=== PATIENT | female | born 1955 | race Caucasian/White ===

== ENCOUNTER 2018-01-29 09:25 | Inpatient (IN) | payer OTHER ==
[~2018-01-29] VITALS: Ht 160 cm; Wt 99.0 kg
[2018-01-29] MEDS ORDERED: EFF75 PO (09:45)
[2018-01-29] MEDS ORDERED: LISI-725 PO (09:45)
[2018-01-29] MEDS ORDERED: AMLO-114 PO (09:45)
[2018-01-29] MEDS ORDERED: ABL/5 PO (09:45)
[2018-01-29] MEDS ORDERED: SIMV5TAB2 PO (09:45)
[2018-01-29] MEDS ORDERED: VNTHFA/IN INH (09:45)
[2018-01-29] MEDS ORDERED: DEXAMETHASONE **PF** INJ 10 MG/ML VIAL IV ONE (10:00)
[2018-01-29] MEDS ORDERED: ALBUT/IPRATROP 3MG/0.5MG NEB 3 ML VIAL INH STA (10:00)
[2018-01-29] MEDS ORDERED: SODIUM CHLORIDE 0.9% 500ML 500 ML IV STA (10:00)
--- NOTE | 2018-01-29 10:14 | EMERGENCY ROOM VISIT NOTE ---
History Report prepared by Angelina: Julius Rankin Under the Supervision of: Dr. Joshua Amin M.D. First contact with patient: 09:48 Chief Complaint: REFERRED BY DOCTOR Stated Complaint: ACID REFLUX History of Present Illness The patient is a 62 year old female who presents to the Emergency Room with complaints of persistent hoarse throat and intermittent "throat closing" episodes where she cannot breath and feels "blocked in her throat" and passes out or nearly passes out for the past 4-5 weeks. The patient states that she has a history of bad GERD, and she has been taking Prilosec for the past 20 years. She states that she saw her PCP this morning that referred her to the ED for evaluation. The patient states that 4 weeks ago she was diagnosed with bronchitis, and then she was put on antibiotics, and she states that her voice has not come back since then. She then was put on prednisone for 5 days, and this has not helped her. The patient states that she has had an endoscopy a year ago and she states that her "throat is a mess": She notes that since she was put on prednisone, she has had more frequent episodes. She has had an EEG, and it was negative. The patient states that during these episodes her head snaps back, she cannot breathe for 10-20 seconds, she becomes incontinent, and she sometimes shakes, though she notes that she has lost consciousness 2-3 times. She notes that her last episode was yesterday morning and the night before. The patient states that she has not had any other medications changes, and she states that she has not had a CT scan or bronchoscopy. The patient states that she has had one child that was not a vaginal delivery, and she states that she smokes a pack of cigarettes per day. The patient denies any shortness of breath, fevers, chills, nausea, vomiting, diarrhea, and coughing up hemoptysis. She reports that she does not think that the episodes are related to stress. Source of History: patient Onset: 4-5 weeks ago Position: throat, other (global) Quality: other (hoarse throat and seizures) Timing: intermittent, other (persistent) Associated Symptoms: + LOC, No fevers, No chills, No nausea, No vomiting, No diarrhea Review of Systems See HPI for pertinent positives and negatives. A total of ten systems were reviewed and were otherwise negative. Past Medical & Surgical Medical Problems: (1) GERD (gastroesophageal reflux disease) (2) Syncope Social History Smoking Status: Current Every Day Smoker Marital Status: Housing Status: lives with family Occupation Status: disabled Current/Historical Medications Scheduled Amlodipine (Norvasc), 10 MG PO DAILY Aripiprazole (Abilify), 5 MG PO DAILY Lisinopril (Zestril), 20 MG PO DAILY Simvastatin (Zocor), 5 MG PO DAILY Venlafaxine Hcl (Effexor), 75 MG PO TID Scheduled PRN Albuterol Hfa (Ventolin Hfa), 2 PUFFS INH Q8H PRN for SOB/Wheezing Allergies Coded Allergies: No Known Allergies (Unverified , 01/29/18) Physical Exam Vital Signs Date Time Temp Pulse Resp B/P (MAP) Pulse Ox O2 Delivery O2 Flow Rate FiO2 01/29/18 15:35 106 22 116/81 94 Nasal Cannula 2.0 01/29/18 15:06 93 Nasal Cannula 2.0 01/29/18 14:50 108 20 124/75 89 Room Air 01/29/18 14:06 103 22 127/79 90 Room Air 01/29/18 12:58 95 20 123/81 100 Nebulizer 01/29/18 12:45 87 16 91 Room Air 01/29/18 12:06 89 Room Air 01/29/18 11:55 98 19 115/82 91 Room Air 01/29/18 11:10 90 16 109/72 98 Room Air 01/29/18 10:29 96 01/29/18 09:27 36.7 104 20 138/79 96 Room Air Physical Exam GENERAL: Awake, alert, well-appearing, in no distress HENT: Normocephalic, atraumatic. Dry mucous membranes otherwise oropharynx unremarkable without edema, injection, tongue elevation or trismus. EYES: Normal conjunctiva. Sclera non-icteric. NECK: Supple. No nuchal rigidity. FROM. No JVD. No LAD. No stridor. RESPIRATORY: Scattered intermittent wheeze otherwise clear. CARDIAC: Regular rate, normal rhythm. Extremities warm and well perfused. Pulses equal. ABDOMEN: Soft, non-distended. No tenderness to palpation. No rebound or guarding. No masses. RECTAL: Deferred. MUSCULOSKELETAL: Chest examination reveals no tenderness. The back is symmetrical on inspection without obvious abnormality. There is no CVA tenderness to palpation. No joint edema. LOWER EXTREMITIES: Calves are equal size bilaterally and non-tender. No edema. No discoloration. NEURO: Normal sensorium. No sensory or motor deficits noted. Normal cerebellar function with [id number], alternating palms, [id number]-[id number] SKIN: No rash or jaundice noted. Medical Decision & Procedures ER Provider Diagnostic Interpretation: Radiology results as stated below per my review and radiologist interpretation: SOFT TISSUE NECK WITH CLINICAL HISTORY: 62 years-old Female presenting with intermittent apnea, ?tracheal occlusion. TECHNIQUE: Multidetector CT of the neck was performed after the administration of intravenous contrast. IV contrast: 94 mL of Optiray 320. A dose lowering technique was used consistent with the principles of ALARA (as low as reasonably achievable). COMPARISON: None. CT DOSE (mGy.cm): The estimated cumulative dose is 1246.25 mGy.cm. FINDINGS: Computer System Specialist topogram: Posterior lumbar fusion hardware noted. Deformity of the neck of the right humerus likely right fracture. Atherosclerosis of the left carotid bifurcation. No gross evidence of significant vessel stenosis. Retropharyngeal common carotid arteries noted. The right vertebral artery is not opacified concerning for occlusion. No suspicious nodular soft tissue along the airway. Valleculae and piriform sinuses symmetric and not effaced. Evaluation of the oral cavity is limited by streak artifact arising from amalgam. Vocal folds are apposed likely due to phonation or the phase of respiration. No evidence of tracheal stenosis. Paranasal sinuses and mastoid air cells clear. Peripharyngeal fat planes are preserved. No cervical lymphadenopathy. Parotid, submandibular, and thyroid glands normal. Orbits normal. Limited intracranial evaluation within normal limits. Degenerative changes of the cervical spine. Lung apices clear. Fluid and gas noted in the cervical esophagus, which is mildly distended. IMPRESSION: 1. Normal CT examination of the airway. No evidence of tracheal stenosis. 2. Mildly distended esophagus. Consider fluoroscopic esophagram if there is concern for esophageal dysmotility or reflux. 3. Findings concerning for right vertebral artery occlusion or congenitally diminutive. Carotid Doppler ultrasound could be considered as clinically appropriate. 4. Deformity of the neck of the right humerus likely posttraumatic. Correlate clinically. The report will be called/faxed according to standard departmental protocol. Electronically signed by: Trino Castaneda M.D. 01/29/2018 11:51 AM Dictated Date/Time: 01/29/2018 11:44 AM CHEST CTA for PULMONARY ARTERIES CT DOSE: HISTORY: Atypical chest pain. TECHNIQUE: Multiaxial CT images of the chest were performed following the intravenous administration of contrast to evaluate the pulmonary arteries. Maximal intensity projection images were also obtained. A dose lowering technique was utilized adhering to the principles of ALARA. COMPARISON STUDY: None. FINDINGS: Normal caliber thoracic aorta with no evidence for dissection. No pleural or pericardial effusions. The heart is normal in size. No filling defects within the pulmonary arteries to suggest pulmonary embolus. Moderate hiatus hernia. The visualized liver, spleen, and adrenal glands are unremarkable. No mediastinal or hilar lymphadenopathy. Fluid-filled nondistended esophagus. Old, healed right humeral neck fracture. No acute fractures identified. No pneumothorax. A 2 mm subpleural nodule within the left lung apex. This is of doubtful clinical significance given its size. A 3 mm groundglass nodule within the left lower lobe on image 121. A 4 mm nodule within the right upper lobe on image 222. 4 mm subpleural nodule at the right minor fissure on image 146. No focal lung consolidations to suggest pneumonia. IMPRESSION: 1. No evidence for pulmonary embolus. 2. Moderate hiatus hernia. There is a fluid-filled nondistended esophagus which could be due to gastroesophageal reflux or dysmotility. 3. A few scattered subcentimeter indeterminate pulmonary nodules with the largest measuring 4 mm as described above. Please refer to the chart below for recommended follow-up. Please refer to below summary of Fleischner criteria recommendations for follow-up of incidental CT nodules (Gonzalez Knapp, Guidelines for management of small pulmonary nodules detected on CT scans: A statement from the Fleischner Society, Radiology 237: [phone].) SOLID NODULES Solitary nodule size: <6 mm * Low risk patients: no follow-up needed * high risk patients: optional CT at 12 months Solitary nodule size: 6-8 mm * Low risk patients: follow-up at 6-12 months, then consider further follow-up at 18-24 months * high risk patients: initial follow-up CT at 6-12 months and then at 18-24 months if no change Solitary nodule size: >8 mm * either low or high risk patients - consider follow-up CT at 3 months, and/or CT-PET, and/or biopsy Multiple nodules size: <6 mm * Low risk patients: no routine follow-up * high risk patients: optional CT at 12 months Multiple nodules size: 6-8 mm * Low risk patients: follow-up at 3-6 months, then consider further follow-up at 18-24 months * high risk patients: follow-up at 3-6 months, then at 18-24 months if no change Multiple nodules size: >8 mm * Low risk patients: follow-up at 3-6 months, then consider further follow-up at 18-24 months * high risk patients: follow-up at 3-6 months, then at 18-24 months if no change Note: newly detected indeterminate nodule in persons 35 years of age or older. * Low risk patients: minimal or absent history of smoking and/or other known risk factors * high risk patients: history of smoking or of other known risk factors (e.g. first degree relative with lung cancer, or exposure to asbestos, radon, uranium) * if a nodule up to 8 mm is partly solid or is ground glass further follow-up is required after 24 months to exclude possible slow growing adenocarcinoma (SADIA) SUBSOLID NODULES Solitary pure ground-glass nodule * nodule size <6 mm - no CT follow-up required * nodule size >=6 mm - follow-up CT at 6-12 months, then every 2 years until 5 years Solitary part-solid nodule * nodule size <6 mm - no CT follow-up required * nodule size >=6 mm - follow-up CT at 3-6 months. If unchanged, and solid component remains <6 mm, then annual follow-up for 5 years Multiple subsolid nodules * nodule size <6 mm - follow-up CT at 3-6 months, consider further follow-up at 2 and 4 years if stable * nodule size >=6 mm - follow-up CT at 3-6 months, subsequent management based on the most suspicious nodule(s) Electronically signed by: Hernandez Jackson M.D. 01/29/2018 12:08 PM Dictated Date/Time: 01/29/2018 11:58 AM SINGLE VIEW CHEST CLINICAL HISTORY: Atypical chest pain. FINDINGS: An AP, portable, upright chest radiograph is obtained. No prior studies are available for comparison at the time of dictation. The examination is degraded by portable technique and patient rotation. The heart is enlarged and there is atherosclerotic calcification of the thoracic aorta. The pulmonary vasculature is noncongested. The lungs and pleural spaces are clear. No pneumothorax is seen. The skeletal structures are osteopenic. The bony thorax is grossly intact. IMPRESSION: Cardiomegaly with no acute cardiopulmonary abnormality. Electronically signed by: Harley Suh M.D. 01/29/2018 10:39 AM Dictated Date/Time: 01/29/2018 10:39 AM CAROTID ARTERY ULTRASOUND CLINICAL HISTORY: Possible vertebral artery occlusion. COMPARISON STUDY: CT of the neck January 29, 2018. TECHNIQUE: Real-time, grayscale, and color Doppler sonography of the carotid and vertebral arteries was performed. Images were viewed in the transverse and longitudinal planes. FINDINGS: There is moderate atherosclerotic plaque. Velocity measurements are listed below. COMMON CAROTID PEAK SYSTOLIC VELOCITY (CM/S): RIGHT 83 LEFT 75 ICA PEAK SYSTOLIC VELOCITY (CM/S): RIGHT 93 LEFT 95 Systolic ratios between the internal to common carotid arteries are normal. Antegrade flow is seen in the vertebral arteries. However, possible right vertebral artery occlusion is not well evaluated on this exam. Blood pressures were not obtained in this patient. IMPRESSION: 1. Antegrade flow identified within portions of the right vertebral artery. However, apparent age indeterminate occlusion of the right vertebral artery shown on prior CT of the neck is not well depicted on this exam. A follow-up CTA of the neck could be obtained for further evaluation. 2. No evidence of a hemodynamically significant stenosis within the bilateral common carotid and internal carotid arteries. Electronically signed by: Yonny Mccullough M.D. 01/29/2018 2:22 PM Dictated Date/Time: 01/29/2018 2:01 PM Laboratory Results 01/29/18 10:25 Red Blood Count 4.29, Mean Corpuscular Volume 66.2, Mean Corpuscular Hemoglobin 19.6, Mean Corpuscular Hemoglobin Concent 29.6, Mean Platelet Volume 8.6, Neutrophils (%) (Auto) 63.1, Lymphocytes (%) (Auto) 28.8, Monocytes (%) (Auto) 5.9, Eosinophils (%) (Auto) 1.5, Basophils (%) (Auto) 0.6, Neutrophils # (Auto) 6.76, Lymphocytes # (Auto) 3.08, Monocytes # (Auto) 0.63, Eosinophils # (Auto) 0.16, Basophils # (Auto) 0.06 01/29/18 10:25 Test 01/29/18 10:25 White Blood Count 10.70 K/uL (4.8-10.8) Red Blood Count 4.29 M/uL (4.2-5.4) Hemoglobin 8.4 g/dL (12.0-16.0) Hematocrit 28.4 % (37-47) Mean Corpuscular Volume 66.2 fL (80-100) Mean Corpuscular Hemoglobin 19.6 pg (25-34) Mean Corpuscular Hemoglobin Concent 29.6 g/dl (32-36) Platelet Count 300 K/uL (130-400) Mean Platelet Volume 8.6 fL (7.4-10.4) Neutrophils (%) (Auto) 63.1 % Lymphocytes (%) (Auto) 28.8 % Monocytes (%) (Auto) 5.9 % Eosinophils (%) (Auto) 1.5 % Basophils (%) (Auto) 0.6 % Neutrophils # (Auto) 6.76 K/uL (1.4-6.5) Lymphocytes # (Auto) 3.08 K/uL (1.2-3.4) Monocytes # (Auto) 0.63 K/uL (0.11-0.59) Eosinophils # (Auto) 0.16 K/uL (0-0.5) Basophils # (Auto) 0.06 K/uL (0-0.2) RDW Standard Deviation 41.9 fL (36.4-46.3) RDW Coefficient of Variation 17.5 % (11.5-14.5) Immature Granulocyte % (Auto) 0.1 % Immature Granulocyte # (Auto) 0.01 K/uL (0.00-0.02) Microcytosis PRESENT Ovalocytes 1+ Anion Gap 8.0 mmol/L (3-11) Est Creatinine Clear Calc Drug Dose 87.1 ml/min Estimated GFR () 97.4 Estimated GFR (Non- 84.1 BUN/Creatinine Ratio 14.0 (10-20) Calcium Level 8.4 mg/dl (8.5-10.1) Magnesium Level 1.8 mg/dl (1.8-2.4) Total Bilirubin 0.4 mg/dl (0.2-1) Direct Bilirubin 0.1 mg/dl (0-0.2) Aspartate Amino Transf (AST/SGOT) 18 U/L (15-37) Alanine Aminotransferase (ALT/SGPT) 24 U/L (12-78) Alkaline Phosphatase 82 U/L (45-117) Troponin I < 0.015 ng/ml (0-0.045) Total Protein 7.6 gm/dl (6.4-8.2) Albumin 3.5 gm/dl (3.4-5.0) Lipase 144 U/L (73-393) Hepatitis C Antibody Screen NEG (NEG) Laboratory results reviewed by me Medications Administered Medications (Trade) Dose Ordered Sig/Bladimir Route Start Time Stop Time Status Last Admin Dose Admin Dexamethasone Sodium Phosphate (Dexamethasone Inj Pf) 10 mg NOW ONCE IV 01/29/18 10:00 01/29/18 10:05 DC 01/29/18 10:49 10 MG Albuterol/ Ipratropium (Duoneb) 3 ml NOW STAT INH 01/29/18 10:00 01/29/18 10:05 DC 01/29/18 10:52 3 ML Sodium Chloride 500 ml @ 999 mls/hr Q31M STAT IV 01/29/18 10:00 01/29/18 10:30 DC 01/29/18 10:49 999 MLS/HR Albuterol/ Ipratropium (Duoneb) 12 ml ONE ONCE INH 01/29/18 12:45 01/29/18 12:46 DC 01/29/18 12:45 12 ML ECG Per My Interpretation Indication: SOB/dyspnea Rate (beats per minute): 87 Rhythm: normal sinus Findings: no acute ischemic change, other (normal axis) ED Course 0948: The patient was evaluated in room B4. A complete history and physical exam was performed. 1234: I reevaluated the patient, and she is feeling fine. Her oxygen was low after getting a nebulizer, she is going to get an hour long nebulizer and an ultrasound. 1445: I reevaluated the patient, and she was doing okay. 1452: I discussed the patient's case with Dr. Shah - Pulmonology, and he thinks that the story is suspicious for reflux and aspiration, and he recommends admission given the 2 episodes of syncope. 1502: Upon reexamination, the patient was doing well. I discussed the test results and treatment plan with her. The patient will be evaluated for further management. 1520: I discussed the patient with Dr. Harden - [facility] [place] Hospitalist - she will evaluate the patient for further treatment. Medical Decision I reviewed the patient's past medical history, medications, and the nursing notes as described above. Differential diagnosis: Etiologies such as infections, reactive airway disease, pneumonia, pneumothorax , COPD, CHF, cardiac ischemia, pulmonary embolism, musculoskeletal, gastrointestinal, as well as others were entertained. The patient is a 62-year-old woman with a past medical history of COPD and reflux who presents to emergency department with worsening frequency and severity of intermittent episodes of sensation of "throat closing" unable to breathe and associated syncope per hpi. Of note the patient has had repeated episodes like this and has had syncope 2-3 times and otherwise has experienced near syncope with these events. Last episode was yesterday which prompted her visit to her PCPs office but was referred to the ED. On arrival the patient is in no acute distress, afebrile stable vital signs. On exam the patient has scattered wheezes and rhonchi in the setting of her chronic smoking history. Patient was given steroids and DuoNeb for possible mild COPD flare. However, subsequently patient was persistently hypoxic on room air to the mid to upper 80s. CT soft tissue neck demonstrates fluid-filled esophagus which raises suspicion that the patient's episodes could be aspiration related; no evidence of tracheal stenosis. CT of the chest negative for PE or acute pulmonary process otherwise. There is comment on the patient's study of occlusion of the vertebral artery which was further clarified in a limited manner on carotid ultrasound which did show flow. Reviewed these findings with the patient she then reported to me that she feels that she has had 3 weeks of double vision, although on exam she has no overt disconjugate gaze or palsy. The patient denies any vertigo or difficulty with coordination. Case was discussed with Dr. Shah, pulmonology on-call, and we agree that the patient's episodes may possibly due to reflux and aspiration. Possibility of a tracheolaryngeal malacia/paralysis is less likely. Patient is on lisinopril however the patient has no exam findings that would be concerning for angioedema. We agreed that reasonable to admit the patient for further evaluation of the patient's syncopal episodes with associated respiratory/obstructive symptoms which also now occur in the setting of possible COPD flare as well as ?vertebral artery occlusion/stenosis of unclear significance. Case was discussed with REGINA Donovan hospitalist, who will evaluate the patient for admission. Medication Reconcilliation Current Medication List: was personally reviewed by me Blood Pressure Screening Patient's blood pressure: Normal blood pressure Consults Time Called: 1431 Consulting Physician: Dr. Shah - Pulmonology Returned Call: [phone] I discussed the patient's case with Dr. Shah - Pulmonology, and he thinks that the story is suspicious for reflux and aspiration, and he recommends admission given the 2 episodes of syncope. Additional Consults: Time Called: 1509 Consulted Physician: Dr. Dereck TAPIA Hospitalist Returned Call: [phone] Additional Comments: I discussed the patient with Dr. Dereck TAPIA Hospitalist - she will evaluate the patient for further treatment. Impression Primary Impression: Syncope Additional Impressions: Hoarseness of voice COPD exacerbation Scribe Attestation The scribe's documentation has been prepared under my direction and personally reviewed by me in its entirety. I confirm that the note above accurately reflects all work, treatment, procedures, and medical decision making performed by me. Departure Information Dispostion Being Evaluated By Hospitalist Patient Instructions My [facility] Problem Qualifiers
[2018-01-29] MEDS ORDERED: OPTIRAY 320 IV PRN (10:15)
--- NOTE | 2018-01-29 10:41 | DIAGNOSTIC IMAGING REPORT ---
SINGLE VIEW CHEST CLINICAL HISTORY: Atypical chest pain. FINDINGS: An AP, portable, upright chest radiograph is obtained. No prior studies are available for comparison at the time of dictation. The examination is degraded by portable technique and patient rotation. The heart is enlarged and there is atherosclerotic calcification of the thoracic aorta. The pulmonary vasculature is noncongested. The lungs and pleural spaces are clear. No pneumothorax is seen. The skeletal structures are osteopenic. The bony thorax is grossly intact. IMPRESSION: Cardiomegaly with no acute cardiopulmonary abnormality. Electronically signed by: Harley Suh M.D. 01/29/2018 10:39 AM Dictated Date/Time: 01/29/2018 10:39 AM
[2018-01-29 11:00] LABS: ALBUMIN 3.5 gm/dl (3.4-5.0); ALKALINE PHOSPHATASE 82 U/L (45-117); ALT/SGPT 24 U/L (12-78); AST/SGOT 18 U/L (15-37); BLOOD UREA NITROGEN 11 mg/dl (7-18); CALCIUM 8.4 mg/dl (8.5-10.1); CARBON DIOXIDE 24 mmol/L (21-32); CREATININE 0.76 mg/dl (0.60-1.20); GLUCOSE 88 mg/dl (70-99); LIPASE 144 U/L (73-393); POTASSIUM 3.8 mmol/L (3.5-5.1); SODIUM 139 mmol/L (136-145); TOTAL PROTEIN 7.6 gm/dl (6.4-8.2)
[2018-01-29 11:17] LABS: BASO % 0.6 %; BASO ABS # 0.06 K/uL (0-0.2); EOS % 1.5 %; EOS ABS # 0.16 K/uL (0-0.5); IG# 0.01 K/uL (0.00-0.02); LYMPH % 28.8 %; LYMPH ABS # 3.08 K/uL (1.2-3.4); MONO % 5.9 %; MONO ABS # 0.63 K/uL (0.11-0.59); NEUT % 63.1 %; NEUT ABS # 6.76 K/uL (1.4-6.5)
--- NOTE | 2018-01-29 11:52 | DIAGNOSTIC IMAGING REPORT ---
SOFT TISSUE NECK WITH CLINICAL HISTORY: 62 years-old Female presenting with intermittent apnea, ?tracheal occlusion. TECHNIQUE: Multidetector CT of the neck was performed after the administration of intravenous contrast. IV contrast: 94 mL of Optiray 320. A dose lowering technique was used consistent with the principles of ALARA (as low as reasonably achievable). COMPARISON: None. CT DOSE (mGy.cm): The estimated cumulative dose is 1246.25 mGy.cm. FINDINGS: Manager Statistics topogram: Posterior lumbar fusion hardware noted. Deformity of the neck of the right humerus likely right fracture. Atherosclerosis of the left carotid bifurcation. No gross evidence of significant vessel stenosis. Retropharyngeal common carotid arteries noted. The right vertebral artery is not opacified concerning for occlusion. No suspicious nodular soft tissue along the airway. Valleculae and piriform sinuses symmetric and not effaced. Evaluation of the oral cavity is limited by streak artifact arising from amalgam. Vocal folds are apposed likely due to phonation or the phase of respiration. No evidence of tracheal stenosis. Paranasal sinuses and mastoid air cells clear. Peripharyngeal fat planes are preserved. No cervical lymphadenopathy. Parotid, submandibular, and thyroid glands normal. Orbits normal. Limited intracranial evaluation within normal limits. Degenerative changes of the cervical spine. Lung apices clear. Fluid and gas noted in the cervical esophagus, which is mildly distended. IMPRESSION: 1. Normal CT examination of the airway. No evidence of tracheal stenosis. 2. Mildly distended esophagus. Consider fluoroscopic esophagram if there is concern for esophageal dysmotility or reflux. 3. Findings concerning for right vertebral artery occlusion or congenitally diminutive. Carotid Doppler ultrasound could be considered as clinically appropriate. 4. Deformity of the neck of the right humerus likely posttraumatic. Correlate clinically. The report will be called/faxed according to standard departmental protocol. Electronically signed by: Trino Castaneda M.D. 01/29/2018 11:51 AM Dictated Date/Time: 01/29/2018 11:44 AM
--- NOTE | 2018-01-29 12:09 | DIAGNOSTIC IMAGING REPORT ---
CHEST CTA for PULMONARY ARTERIES CT DOSE: HISTORY: Atypical chest pain. TECHNIQUE: Multiaxial CT images of the chest were performed following the intravenous administration of contrast to evaluate the pulmonary arteries. Maximal intensity projection images were also obtained. A dose lowering technique was utilized adhering to the principles of ALARA. COMPARISON STUDY: None. FINDINGS: Normal caliber thoracic aorta with no evidence for dissection. No pleural or pericardial effusions. The heart is normal in size. No filling defects within the pulmonary arteries to suggest pulmonary embolus. Moderate hiatus hernia. The visualized liver, spleen, and adrenal glands are unremarkable. No mediastinal or hilar lymphadenopathy. Fluid-filled nondistended esophagus. Old, healed right humeral neck fracture. No acute fractures identified. No pneumothorax. A 2 mm subpleural nodule within the left lung apex. This is of doubtful clinical significance given its size. A 3 mm groundglass nodule within the left lower lobe on image 121. A 4 mm nodule within the right upper lobe on image 222. 4 mm subpleural nodule at the right minor fissure on image 146. No focal lung consolidations to suggest pneumonia. IMPRESSION: 1. No evidence for pulmonary embolus. 2. Moderate hiatus hernia. There is a fluid-filled nondistended esophagus which could be due to gastroesophageal reflux or dysmotility. 3. A few scattered subcentimeter indeterminate pulmonary nodules with the largest measuring 4 mm as described above. Please refer to the chart below for recommended follow-up. Please refer to below summary of Fleischner criteria recommendations for follow-up of incidental CT nodules (Gonzalez Knapp, Guidelines for management of small pulmonary nodules detected on CT scans: A statement from the Fleischner Society, Radiology 237: [id number].) SOLID NODULES Solitary nodule size: <6 mm * Low risk patients: no follow-up needed * high risk patients: optional CT at 12 months Solitary nodule size: 6-8 mm * Low risk patients: follow-up at 6-12 months, then consider further follow-up at 18-24 months * high risk patients: initial follow-up CT at 6-12 months and then at 18-24 months if no change Solitary nodule size: >8 mm * either low or high risk patients - consider follow-up CT at 3 months, and/or CT-PET, and/or biopsy Multiple nodules size: <6 mm * Low risk patients: no routine follow-up * high risk patients: optional CT at 12 months Multiple nodules size: 6-8 mm * Low risk patients: follow-up at 3-6 months, then consider further follow-up at 18-24 months * high risk patients: follow-up at 3-6 months, then at 18-24 months if no change Multiple nodules size: >8 mm * Low risk patients: follow-up at 3-6 months, then consider further follow-up at 18-24 months * high risk patients: follow-up at 3-6 months, then at 18-24 months if no change Note: newly detected indeterminate nodule in persons 35 years of age or older. * Low risk patients: minimal or absent history of smoking and/or other known risk factors * high risk patients: history of smoking or of other known risk factors (e.g. first degree relative with lung cancer, or exposure to asbestos, radon, uranium) * if a nodule up to 8 mm is partly solid or is ground glass further follow-up is required after 24 months to exclude possible slow growing adenocarcinoma (SADIA) SUBSOLID NODULES Solitary pure ground-glass nodule * nodule size <6 mm - no CT follow-up required * nodule size >=6 mm - follow-up CT at 6-12 months, then every 2 years until 5 years Solitary part-solid nodule * nodule size <6 mm - no CT follow-up required * nodule size >=6 mm - follow-up CT at 3-6 months. If unchanged, and solid component remains <6 mm, then annual follow-up for 5 years Multiple subsolid nodules * nodule size <6 mm - follow-up CT at 3-6 months, consider further follow-up at 2 and 4 years if stable * nodule size >=6 mm - follow-up CT at 3-6 months, subsequent management based on the most suspicious nodule(s) Electronically signed by: Hernandez Jackson M.D. 01/29/2018 12:08 PM Dictated Date/Time: 01/29/2018 11:58 AM
[2018-01-29 12:14] LABS: HEMATOCRIT 28.4 % (37-47); HEMOGLOBIN 8.4 g/dL (12.0-16.0); MEAN CELL VOLUME 66.2 fL (80-100); MEAN CORPUSCULAR HEMOGLOBIN 19.6 pg (25-34); MEAN CORPUSCULAR HGB CONC 29.6 g/dl (32-36); MEAN PLATELET VOLUME 8.6 fL (7.4-10.4); PLATELET COUNT 300 K/uL (130-400); RED CELL DISTRIBUTION WIDTH CV 17.5 % (11.5-14.5); RED CELL DISTRIBUTION WIDTH SD 41.9 fL (36.4-46.3)
[2018-01-29 12:45] VITALS: PULSE 87; O2SAT 91
[2018-01-29] MEDS ORDERED: ALBUT/IPRATROP 3MG/0.5MG NEB 3 ML VIAL INH ONE (12:45)
--- NOTE | 2018-01-29 14:23 | DIAGNOSTIC IMAGING REPORT ---
CAROTID ARTERY ULTRASOUND CLINICAL HISTORY: Possible vertebral artery occlusion. COMPARISON STUDY: CT of the neck January 29, 2018. TECHNIQUE: Real-time, grayscale, and color Doppler sonography of the carotid and vertebral arteries was performed. Images were viewed in the transverse and longitudinal planes. FINDINGS: There is moderate atherosclerotic plaque. Velocity measurements are listed below. COMMON CAROTID PEAK SYSTOLIC VELOCITY (CM/S): RIGHT 83 LEFT 75 ICA PEAK SYSTOLIC VELOCITY (CM/S): RIGHT 93 LEFT 95 Systolic ratios between the internal to common carotid arteries are normal. Antegrade flow is seen in the vertebral arteries. However, possible right vertebral artery occlusion is not well evaluated on this exam. Blood pressures were not obtained in this patient. IMPRESSION: 1. Antegrade flow identified within portions of the right vertebral artery. However, apparent age indeterminate occlusion of the right vertebral artery shown on prior CT of the neck is not well depicted on this exam. A follow-up CTA of the neck could be obtained for further evaluation. 2. No evidence of a hemodynamically significant stenosis within the bilateral common carotid and internal carotid arteries. Electronically signed by: Yonny Mccullough M.D. 01/29/2018 2:22 PM Dictated Date/Time: 01/29/2018 2:01 PM
[2018-01-29] MEDS ORDERED: ALBUTEROL HFA 8 GM INHALER INH PRN (16:15)
[2018-01-29] MEDS ORDERED: ACETAMINOPHEN 325 MG TAB PO PRN (16:15)
[2018-01-29] MEDS ORDERED: ONDANSETRON INJ 2 MG/ML 2 ML VIAL IV PRN (16:15)
--- NOTE | 2018-01-29 16:59 | History and Physical ---
History & Physical Date & Time of Service: January 29, 2018 at 16:21 Chief Complaint: Acid Reflux Primary Care Physician: Errol Baldwin M.D. History of Present Illness Source: patient Patient is a 62yo female with history of depression and hypertension presenting with two weeks of frequent "syncopal" episodes. Patient states that the first episode occurred appx 2 weeks ago when she was riding in the car with her . She coughed then lost consciousness for 10-15 seconds. She also reports bladder incontinence at that time. She was seen by her PCP Dr. Baldwin after that event and had an EEG performed for concern for seizures. She was told that the EEG was normal but it didn't completely rule out seizure. Her second episode occurred a few days later when she was sleeping and she had an episode of not being able to breath. She states that her throat felt tight and she couldn't move air in or out. This lasted approximately 10-15 seconds before she was able to take a breath and was associated with urinary incontinence. She reports two additional episodes of her throat feeling closed and unable to move air in or out. Last episode was yesterday afternoon. Additionally patient has had bronchitis and laryngitis for the last 6 weeks. She initially lost her voice entirely 6 weeks ago. She reports having a sore throat and being hoarse for 6 weeks. She was prescribed Prednisone at home. Patient also endorses globus sensation and some recent heartburn. She denies fevers/chills/CP/palpitations/SOB/wheeze/swelling of the tongue or face. Denies itching or rash. Denies abdominal complaints/nausea/vomiting/ diarrhea or constipation. She is unsure if she snores. Patient reportedly had an endoscopy performed 1 year ago and was told that she had GERD. Patient had decreased oxygen saturation in the ER 91% Past Medical/Surgical History Medical Problems: 1. GERD 2. HTN 3. Depression Past Surgical History: Right rotator cuff Back surgery Cervical spine surgery Hysterectomy for fibroids [place] teeth Tonsillectomy Family History Alzheimers and CAD Social History Smoking Status: Current Every Day Smoker Alcohol Use: socially Drug Use: none Marital Status: Housing status: lives with significant other Occupational Status: disabled Allergies Coded Allergies: No Known Allergies (Unverified , 01/29/18) Home Medications Scheduled Amlodipine (Norvasc), 10 MG PO DAILY Aripiprazole (Abilify), 5 MG PO DAILY Lisinopril (Zestril), 20 MG PO DAILY Simvastatin (Zocor), 5 MG PO DAILY Venlafaxine Hcl (Effexor), 75 MG PO TID Scheduled PRN Albuterol Hfa (Ventolin Hfa), 2 PUFFS INH Q8H PRN for SOB/Wheezing Review of Systems Per HPI. A 10 point ROS was otherwise negative. Physical Exam Vital Signs Date Time Temp Pulse Resp B/P (MAP) Pulse Ox O2 Delivery O2 Flow Rate FiO2 01/29/18 15:35 106 22 116/81 94 Nasal Cannula 2.0 01/29/18 15:06 93 Nasal Cannula 2.0 01/29/18 14:50 108 20 124/75 89 Room Air 01/29/18 14:06 103 22 127/79 90 Room Air 01/29/18 12:58 95 20 123/81 100 Nebulizer 01/29/18 12:45 87 16 91 Room Air 01/29/18 12:06 89 Room Air 01/29/18 11:55 98 19 115/82 91 Room Air 01/29/18 11:10 90 16 109/72 98 Room Air 01/29/18 10:29 96 01/29/18 09:27 36.7 104 20 138/79 96 Room Air General: obese female, NAD, resting comfortably Skin: warm, dry, intact, no rashes or lesions HEENT: NC/AT, PERRL, EOMI, anicteric sclera, neck supple, no JVD, no thyromegaly, no JVD, OP clear with no lesions/edema, dentition intact, no swelling of soft tissues or tongue Heart: +S1/S2, regular, tachycardic, no m/r/g Lungs: equal air entry bilaterally, no rales/rhonchi/wheezes, no stridor, no respiratory distress Abdomen: +BS, soft, NT/ND, no masses Extremities: warm, well perfused, no clubbing/cyanosis or edema Neuro: nonfocal Diagnostics Laboratory Results Results Past 24 Hours Test 01/29/18 10:25 Range/Units White Blood Count 10.70 4.8-10.8 K/uL Red Blood Count 4.29 4.2-5.4 M/uL Hemoglobin 8.4 12.0-16.0 g/dL Hematocrit 28.4 37-47 % Mean Corpuscular Volume 66.2 80-100 fL Mean Corpuscular Hemoglobin 19.6 25-34 pg Mean Corpuscular Hemoglobin Concent 29.6 32-36 g/dl Platelet Count 300 130-400 K/uL Mean Platelet Volume 8.6 7.4-10.4 fL Neutrophils (%) (Auto) 63.1 % Lymphocytes (%) (Auto) 28.8 % Monocytes (%) (Auto) 5.9 % Eosinophils (%) (Auto) 1.5 % Basophils (%) (Auto) 0.6 % Neutrophils # (Auto) 6.76 1.4-6.5 K/uL Lymphocytes # (Auto) 3.08 1.2-3.4 K/uL Monocytes # (Auto) 0.63 0.11-0.59 K/uL Eosinophils # (Auto) 0.16 0-0.5 K/uL Basophils # (Auto) 0.06 0-0.2 K/uL RDW Standard Deviation 41.9 36.4-46.3 fL RDW Coefficient of Variation 17.5 11.5-14.5 % Immature Granulocyte % (Auto) 0.1 % Immature Granulocyte # (Auto) 0.01 0.00-0.02 K/uL Microcytosis PRESENT Ovalocytes 1+ Sodium Level 139 136-145 mmol/L Potassium Level 3.8 3.5-5.1 mmol/L Chloride Level 107 98-107 mmol/L Carbon Dioxide Level 24 21-32 mmol/L Anion Gap 8.0 3-11 mmol/L Blood Urea Nitrogen 11 7-18 mg/dl Creatinine 0.76 0.60-1.20 mg/dl Est Creatinine Clear Calc Drug Dose 87.1 ml/min Estimated GFR () 97.4 Estimated GFR (Non- 84.1 BUN/Creatinine Ratio 14.0 10-20 Random Glucose 88 70-99 mg/dl Calcium Level 8.4 8.5-10.1 mg/dl Magnesium Level 1.8 1.8-2.4 mg/dl Total Bilirubin 0.4 0.2-1 mg/dl Direct Bilirubin 0.1 0-0.2 mg/dl Aspartate Amino Transf (AST/SGOT) 18 15-37 U/L Alanine Aminotransferase (ALT/SGPT) 24 12-78 U/L Alkaline Phosphatase 82 45-117 U/L Troponin I < 0.015 0-0.045 ng/ml Total Protein 7.6 6.4-8.2 gm/dl Albumin 3.5 3.4-5.0 gm/dl Lipase 144 73-393 U/L Diagnostic Radiology CAROTID ARTERY ULTRASOUND CLINICAL HISTORY: Possible vertebral artery occlusion. COMPARISON STUDY: CT of the neck January 29, 2018. TECHNIQUE: Real-time, grayscale, and color Doppler sonography of the carotid and vertebral arteries was performed. Images were viewed in the transverse and longitudinal planes. FINDINGS: There is moderate atherosclerotic plaque. Velocity measurements are listed below. COMMON CAROTID PEAK SYSTOLIC VELOCITY (CM/S): RIGHT 83 LEFT 75 ICA PEAK SYSTOLIC VELOCITY (CM/S): RIGHT 93 LEFT 95 Systolic ratios between the internal to common carotid arteries are normal. Antegrade flow is seen in the vertebral arteries. However, possible right vertebral artery occlusion is not well evaluated on this exam. Blood pressures were not obtained in this patient. IMPRESSION: 1. Antegrade flow identified within portions of the right vertebral artery. However, apparent age indeterminate occlusion of the right vertebral artery shown on prior CT of the neck is not well depicted on this exam. A follow-up CTA of the neck could be obtained for further evaluation. 2. No evidence of a hemodynamically significant stenosis within the bilateral common carotid and internal carotid arteries. SINGLE VIEW CHEST CLINICAL HISTORY: Atypical chest pain. FINDINGS: An AP, portable, upright chest radiograph is obtained. No prior studies are available for comparison at the time of dictation. The examination is degraded by portable technique and patient rotation. The heart is enlarged and there is atherosclerotic calcification of the thoracic aorta. The pulmonary vasculature is noncongested. The lungs and pleural spaces are clear. No pneumothorax is seen. The skeletal structures are osteopenic. The bony thorax is grossly intact. IMPRESSION: Cardiomegaly with no acute cardiopulmonary abnormality. Electronically signed by: Harley Suh M.D. 01/29/2018 10:39 AM CHEST CTA for PULMONARY ARTERIES CT DOSE: HISTORY: Atypical chest pain. TECHNIQUE: Multiaxial CT images of the chest were performed following the intravenous administration of contrast to evaluate the pulmonary arteries. Maximal intensity projection images were also obtained. A dose lowering technique was utilized adhering to the principles of ALARA. COMPARISON STUDY: None. FINDINGS: Normal caliber thoracic aorta with no evidence for dissection. No pleural or pericardial effusions. The heart is normal in size. No filling defects within the pulmonary arteries to suggest pulmonary embolus. Moderate hiatus hernia. The visualized liver, spleen, and adrenal glands are unremarkable. No mediastinal or hilar lymphadenopathy. Fluid-filled nondistended esophagus. Old, healed right humeral neck fracture. No acute fractures identified. No pneumothorax. A 2 mm subpleural nodule within the left lung apex. This is of doubtful clinical significance given its size. A 3 mm groundglass nodule within the left lower lobe on image 121. A 4 mm nodule within the right upper lobe on image 222. 4 mm subpleural nodule at the right minor fissure on image 146. No focal lung consolidations to suggest pneumonia. IMPRESSION: 1. No evidence for pulmonary embolus. 2. Moderate hiatus hernia. There is a fluid-filled nondistended esophagus which could be due to gastroesophageal reflux or dysmotility. 3. A few scattered subcentimeter indeterminate pulmonary nodules with the largest measuring 4 mm as described above. Please refer to the chart below for recommended follow-up. Please refer to below summary of Fleischner criteria recommendations for follow-up of incidental CT nodules (H MacMahon, Guidelines for management of small pulmonary nodules detected on CT scans: A statement from the Fleischner Society, Radiology 237: [id number].) SOFT TISSUE NECK WITH CLINICAL HISTORY: 62 years-old Female presenting with intermittent apnea, ?tracheal occlusion. TECHNIQUE: Multidetector CT of the neck was performed after the administration of intravenous contrast. IV contrast: 94 mL of Optiray 320. A dose lowering technique was used consistent with the principles of ALARA (as low as reasonably achievable). COMPARISON: None. CT DOSE (mGy.cm): The estimated cumulative dose is 1246.25 mGy.cm. FINDINGS: Manager Of Compensation topogram: Posterior lumbar fusion hardware noted. Deformity of the neck of the right humerus likely right fracture. Atherosclerosis of the left carotid bifurcation. No gross evidence of significant vessel stenosis. Retropharyngeal common carotid arteries noted. The right vertebral artery is not opacified concerning for occlusion. No suspicious nodular soft tissue along the airway. Valleculae and piriform sinuses symmetric and not effaced. Evaluation of the oral cavity is limited by streak artifact arising from amalgam. Vocal folds are apposed likely due to phonation or the phase of respiration. No evidence of tracheal stenosis. Paranasal sinuses and mastoid air cells clear. Peripharyngeal fat planes are preserved. No cervical lymphadenopathy. Parotid, submandibular, and thyroid glands normal. Orbits normal. Limited intracranial evaluation within normal limits. Degenerative changes of the cervical spine. Lung apices clear. Fluid and gas noted in the cervical esophagus, which is mildly distended. IMPRESSION: 1. Normal CT examination of the airway. No evidence of tracheal stenosis. 2. Mildly distended esophagus. Consider fluoroscopic esophagram if there is concern for esophageal dysmotility or reflux. 3. Findings concerning for right vertebral artery occlusion or congenitally diminutive. Carotid Doppler ultrasound could be considered as clinically appropriate. 4. Deformity of the neck of the right humerus likely posttraumatic. Correlate clinically. The report will be called/faxed according to standard departmental protocol. Impression Assessment and Plan 62yo female presenting with episodic apneic episodes characterized by inability to move air in or out, feeling of throat closure. Patient denies other allergic symptoms, no evidence of infection, imaging performed in the ER with normal tracheal anatomy and no soft tissue swelling. Patient does report a prolonged 6 week history of laryngitis with hoarseness. 1. ?Apneic episodes - patient with no respiratory distress at present, adequate oxygenation on 2L nasal cannula. Suspect symptoms are secondary to underlying GERD versus vocal cord dysfunction or edema given patient's prolonged complaint of hoarseness. -Monitor on telemetry with continuous pulse oximetry -Consult ENT re: need to visualize upper airway and vocal cords - may be more appropriately done in the outpatient setting -Protonix 40mg PO daily 2. Anemia - Hg=8.4, Hct=28.4, MCV=66.2, MCH=19.6. No history of prior H/H in our records. Patient denies bleeding. -Will send FOBT and Iron studies. Reticulocyte count. -Daily CBC, transfuse if less than 7 3. GERD - patient endorses globus sensation, fullness in throat. -Protonix 40mg PO daily. 4. Hypertension - patient is normotensive. Continue outpatient medications. No airway swelling at present. No history of angioedema -Norvasc 10mg po daily -Lisinopril 20mg po daily 5. Depression - Stable -Continue Effexor 75mg po daily -Continue Abilify 6. HLP - Stable -Continue Simvastatin 7. F/E/N - Heplock. Monitor electrolytes and replete as needed. AHA diet as tolerated 8. Code - Full per discussion with patient 9. Dispo - Telemetry, admit Resuscitation Status FULL VTE Prophylaxis Will order VTE Prophylaxis: Yes
[2018-01-29 17:30] VITALS: BP 130/82; PULSE 108; TEMP 36.7; O2SAT 96
[2018-01-29 17:32] LABS: RETIC COUNT % 1.4 % (0.5-2.0)
[2018-01-29] MEDS ORDERED: PANTOprazole INJ 40 MG in SYRINGE 0 ML IV ONE (17:46)
[2018-01-29 18:10] LABS: PTT PATIENT 23.6 SECONDS (21.0-31.0)
[2018-01-29 18:18] VITALS: O2SAT 93; Ht 160 cm; Wt 99.0 kg
[2018-01-29] MEDS: NICOTINE 21 MG/24 HR TDSY TD SCH (19:29)
[2018-01-29 19:59] VITALS: BP 126/78; PULSE 108; TEMP 36.9; O2SAT 94
[2018-01-29] MEDS: VENLAFAXINE HCL 50 MG TAB PO SCH (20:42)
[2018-01-29] MEDS: ENOXAPARIN 40 MG/0.4 ML SYR SC SCH (20:43)
[2018-01-29 20:54] VITALS: O2SAT 93
[2018-01-29] MEDS ORDERED: IV FLUIDS COMPLETED PRN (21:00)
[2018-01-29 23:33] VITALS: BP 110/72; PULSE 99; TEMP 36.9; O2SAT 91
[2018-01-30] VITALS (9 sets, daily range): BP systolic 111–130; BP diastolic 73–86; PULSE 93–110; TEMP 36.7–37.1; O2SAT 92–98
[2018-01-30 05:47] LABS: HEMATOCRIT 29.3 % (37-47); HEMOGLOBIN 8.5 g/dL (12.0-16.0); MEAN CELL VOLUME 66.4 fL (80-100); MEAN CORPUSCULAR HEMOGLOBIN 19.3 pg (25-34); MEAN PLATELET VOLUME 8.6 fL (7.4-10.4); PLATELET COUNT 297 K/uL (130-400); RED CELL DISTRIBUTION WIDTH CV 17.4 % (11.5-14.5); RED CELL DISTRIBUTION WIDTH SD 41.8 fL (36.4-46.3); WHITE BLOOD COUNT 11.77 K/uL (4.8-10.8)
[2018-01-30 06:09] LABS: CALCIUM 8.8 mg/dl (8.5-10.1); CREATININE 0.71 mg/dl (0.60-1.20); POTASSIUM 4.2 mmol/L (3.5-5.1)
[2018-01-30 06:14] LABS: BASO % 0.1 %; BASO ABS # 0.01 K/uL (0-0.2); IG# 0.03 K/uL (0.00-0.02); LYMPH % 18.3 %; LYMPH ABS # 2.15 K/uL (1.2-3.4); MONO % 7.2 %; MONO ABS # 0.85 K/uL (0.11-0.59); NEUT % 74.1 %; NEUT ABS # 8.73 K/uL (1.4-6.5)
[2018-01-30] MEDS: VENLAFAXINE HCL 50 MG TAB PO SCH ×3 (08:21→20:36)
[2018-01-30] MEDS: AMLODIPINE BESYLATE 5 MG TAB PO SCH (08:21)
[2018-01-30] MEDS: SIMVASTATIN 5 MG TAB PO SCH (08:21)
[2018-01-30] MEDS: ARIPIprazole TAB 5 MG TAB PO SCH (08:21)
[2018-01-30] MEDS: LISINOPRIL 20 MG TAB PO SCH (08:22)
[2018-01-30] MEDS ORDERED: PANTOprazole INJ 40 MG in SYRINGE 0 ML IV SCH (11:00)
[2018-01-30] MEDS ORDERED: COUGH DROP (SUGAR FREE) LOZ 24 LOZ/1 BOX LOZ PRN (11:45)
[2018-01-30] MEDS ORDERED: ALUMINUM/MAGNESIUM/SIMETH (MAALOX MAX) 30 ML UDC PO PRN (13:00)
--- NOTE | 2018-01-30 13:17 | Gastrointestinal Consultation ---
Gastrointestinal Consultation Date of Consultation: January 30, 2018 Attending Physician: Dr Davi Carbone Consulting Physician: Dr Miguel Angel Garcias Reason for Consultation: GERD, Fe def History of Present Illness CC GERD HPI Pt admitted with near syncope and syncope episodes usually starting with coughing episodes. Pt has chronic GERD and can get regurgiatation of stomach contents not necessarily associated with the coughing. Pt states in [place] where she and her with her lived diagnosed with Fe def anemia a year ago and underwent EGD and colonoscopy there. She states colon polyp removed and "throat was a mess". She states normally on prilosec 20 mg daily but 6 months ago upped that to 40 mg daily and one week ago 80 mg daily GERD symptoms are chest burning. No bloody nor black stools. Some food dysphagia No significant change in her weight. Soft tissue neck CT no over esophageal problems. CTA chest fluid filled esophaguas, moderate HH. NO abd pain symptoms. Does smoke 1 ppd. No old Hgb to compare. Hgb on admit 8.4 with Fe sat and ferritin low and B12/folate normal. Past Medical/Surgical History Medical Problems: (1) COPD exacerbation Status: Acute (2) Hoarseness of voice Status: Acute Family History alzheimers Social History Smoking Status: Current Every Day Smoker Drug Use: none Marital Status: Housing Status: lives with family Occupation Status: disabled Allergies Coded Allergies: No Known Allergies (Unverified , 01/29/18) Current Medications Home Meds and Scripts Medications Dose Route/Sig Max Daily Dose Days Date Category Ventolin Hfa (Albuterol) 200 Puffs/64775 Mcg Aers 2 Puffs INH Q8H PRN 01/29/18 Reported Abilify (Aripiprazole) 5 Mg Tab 5 Mg PO DAILY 01/29/18 Reported Effexor (Venlafaxine Hcl) 75 Mg Tab 75 Mg PO TID 01/29/18 Reported Norvasc (Amlodipine Besylate) 10 Mg Tab 10 Mg PO DAILY 01/29/18 Reported Zestril (Lisinopril) 20 Mg Tab 20 Mg PO DAILY 01/29/18 Reported Zocor (Simvastatin) 5 Mg Tab 5 Mg PO DAILY 01/29/18 Reported Review of Systems see HPI, otherwise 10 ROS negative Physical Exam Date Time Temp Pulse Resp B/P (MAP) Pulse Ox O2 Delivery O2 Flow Rate FiO2 5/22/18 11:27 36.9 93 18 121/77 (92) 96 01/30/18 08:00 94 Nasal Cannula 2.0 01/30/18 07:27 37.1 96 20 130/86 (101) 94 Nasal Cannula 2.0 01/30/18 04:18 37.1 100 18 111/73 (86) 95 Nasal Cannula 2.0 01/30/18 04:00 Nasal Cannula 2.0 01/30/18 00:00 Nasal Cannula 2.0 01/29/18 23:33 36.9 99 18 110/72 (85) 91 Nasal Cannula 2.0 01/29/18 20:54 93 Nasal Cannula 2.0 01/29/18 19:59 36.9 108 18 126/78 (94) 94 Nasal Cannula 2.0 01/29/18 18:18 93 Nasal Cannula 2.0 01/29/18 17:30 36.7 108 16 130/82 (98) 96 Nasal Cannula 2.0 01/29/18 17:13 109 20 140/84 93 Nasal Cannula 2.0 01/29/18 15:35 106 22 116/81 94 Nasal Cannula 2.0 01/29/18 15:06 93 Nasal Cannula 2.0 01/29/18 14:50 108 20 124/75 89 Room Air 01/29/18 14:06 103 22 127/79 90 Room Air General Appearance: WD/WN, no apparent distress Eyes: normal inspection, PERRL ENT: hearing grossly normal, pharynx normal Neck: supple, trachea midline Respiratory/Chest: lungs clear, no respiratory distress Cardiovascular: regular rate, rhythm, no edema Abdomen: normal bowel sounds, non tender, soft, no organomegaly, no pulsatile mass Extremities: normal inspection Neurologic/Psych: claim clinician II-XII nml as tested, alert, normal mood/affect, oriented x 3 Skin: normal color, no jaundice Laboratory Results Last 24 Hours Test 01/29/18 17:07 01/29/18 17:48 01/30/18 00:20 01/30/18 05:23 Absolute Reticulocyte Count 0.06 10^6/uL Percent Reticulocyte Count 1.4 % Iron Level 13 mcg/dl Total Iron Binding Capacity 527 mcg/dl Ferritin 2.4 ng/ml Prothrombin Time 10.0 SECONDS Prothromb Time International Ratio 1.0 Activated Partial Thromboplast Time 23.6 SECONDS Partial Thromboplastin Ratio 0.9 Urine Color YELLOW Urine Appearance CLEAR Urine pH 6.0 Urine Specific [place] 1.021 Urine Protein NEG Urine Glucose (UA) NEG Urine Ketones NEG Urine Occult Blood NEG Urine Nitrite NEG Urine Bilirubin NEG Urine Urobilinogen NEG Urine Leukocyte Esterase NEG White Blood Count 11.77 K/uL Red Blood Count 4.41 M/uL Hemoglobin 8.5 g/dL Hematocrit 29.3 % Mean Corpuscular Volume 66.4 fL Mean Corpuscular Hemoglobin 19.3 pg Mean Corpuscular Hemoglobin Concent 29.0 g/dl Platelet Count 297 K/uL Mean Platelet Volume 8.6 fL Neutrophils (%) (Auto) 74.1 % Lymphocytes (%) (Auto) 18.3 % Monocytes (%) (Auto) 7.2 % Eosinophils (%) (Auto) 0.0 % Basophils (%) (Auto) 0.1 % Neutrophils # (Auto) 8.73 K/uL Lymphocytes # (Auto) 2.15 K/uL Monocytes # (Auto) 0.85 K/uL Eosinophils # (Auto) 0.00 K/uL Basophils # (Auto) 0.01 K/uL RDW Standard Deviation 41.8 fL RDW Coefficient of Variation 17.4 % Immature Granulocyte % (Auto) 0.3 % Immature Granulocyte # (Auto) 0.03 K/uL Microcytosis PRESENT Ovalocytes 1+ Sodium Level 141 mmol/L Potassium Level 4.2 mmol/L Chloride Level 108 mmol/L Carbon Dioxide Level 25 mmol/L Anion Gap 8.0 mmol/L Blood Urea Nitrogen 12 mg/dl Creatinine 0.71 mg/dl Est Creatinine Clear Calc Drug Dose 93.3 ml/min Estimated GFR () 105.8 Estimated GFR (Non- 91.3 BUN/Creatinine Ratio 17.2 Random Glucose 107 mg/dl Calcium Level 8.8 mg/dl Test 01/30/18 09:19 Vitamin B12 Level 356 pg/mL Folate 15.35 ng/mL Impression gerd--Rx with protonix 40 mg po bid and carafate suspension qid. Get copy of previous EGD and recommend elective EGD as outpt hopefullly once sycopal spells sorted out Fe def anemia--had EGD/colo one year ago. Recommend ferrous sulfate or equivalent daily. Get reports of scopes regurgitation--from acid reflux dysphagia--elective EGD as above.
[2018-01-30] MEDS ORDERED: LEVALBUTEROL/IPRATROPIUM NEB INH PRN (14:30)
[2018-01-30] MEDS ORDERED: LEVALBUTEROL 0.63MG/3 ML NEB INH PRN (15:00)
[2018-01-30] MEDS ORDERED: LEVALBUTEROL/IPRATROPIUM NEB INH SCH (15:00)
[2018-01-30] MEDS ORDERED: IPRATROPIUM BROMIDE NEB SOLN 0.02% 2.5 ML VIAL INH PRN (15:00)
--- NOTE | 2018-01-30 15:17 | Progress Note ---
Medicine Progress Note Date & Time of Visit: January 30, 2018 at 14:41. (Minna Amado .ADAMARISC) Subjective Pt seen and examined in Rm 284-2. Pt resting in bed. Pt has noted audible wheezing. She reports feels SOB and wheezing. Typically uses albuterol inhaler at least twice daily for past 6 months. Previously was on Spiriva, not on for past 6 months. Reports PFT's approx 2 years ago when lived in [place] and was diagnosed with COPD. Hx bronchitis one month ago and treated with prednisone, pt reports some residual hoarseness since. Hx sensation "flap closing in throat and unable to inhale or exhale for approx 10 seconds" and pt states then feels anxious and has urinary incontinence. This has occurred 4 times in past week. States one time had syncope with this that lasted a couple of seconds. Sometimes occurs with sitting or walking. She denies feeling SOB or associated SOB or wheezing when this occurs and denies anxiety prior to these episodes. Seen at PCP and had EEG on 01/11/18 - normal. No further syncopal episodes while in hospital. Reports hx urinary incontinence for years. Hx GERD, hiatal hernia. Was taking omeprazole. Pt reports frequent reflux symptoms. Normal appetite. (Minna Amado ., ADAMARISC) Objective Last 8 Hrs Date Time Temp Pulse Resp B/P (MAP) Pulse Ox O2 Delivery O2 Flow Rate FiO2 01/30/18 12:00 Nasal Cannula 2.0 01/30/18 11:27 36.9 93 18 121/77 (92) 96 01/30/18 08:00 94 Nasal Cannula 2.0 01/30/18 07:27 37.1 96 20 130/86 (101) 94 Nasal Cannula 2.0 Physical Exam: General:Well developed, well nourished, +mild respiratory distress - noted audible wheezing Head: normocephalic, atraumatic Eyes: PERRL, EOM's intact ENT: mucous membranes moist Neck: supple, non-tender, no masses noted Lungs:+ scattered wheezing throughout, no rales or rhonchi, respirations: 24. no accessory muscle use. CV: RRR, no JVD, no pretibial edema Abdomen: normal BS, soft, non-tender Extremities: no cyanosis, no calf tenderness Neuro: alert & oriented x 3 Skin: warm & dry Laboratory Results: Last 24 Hours Test 01/29/18 17:07 01/29/18 17:48 01/30/18 00:20 01/30/18 05:23 Absolute Reticulocyte Count 0.06 10^6/uL Percent Reticulocyte Count 1.4 % Iron Level 13 mcg/dl Total Iron Binding Capacity 527 mcg/dl Ferritin 2.4 ng/ml Prothrombin Time 10.0 SECONDS Prothromb Time International Ratio 1.0 Activated Partial Thromboplast Time 23.6 SECONDS Partial Thromboplastin Ratio 0.9 Urine Color YELLOW Urine Appearance CLEAR Urine pH 6.0 Urine Specific [place] 1.021 Urine Protein NEG Urine Glucose (UA) NEG Urine Ketones NEG Urine Occult Blood NEG Urine Nitrite NEG Urine Bilirubin NEG Urine Urobilinogen NEG Urine Leukocyte Esterase NEG White Blood Count 11.77 K/uL Red Blood Count 4.41 M/uL Hemoglobin 8.5 g/dL Hematocrit 29.3 % Mean Corpuscular Volume 66.4 fL Mean Corpuscular Hemoglobin 19.3 pg Mean Corpuscular Hemoglobin Concent 29.0 g/dl Platelet Count 297 K/uL Mean Platelet Volume 8.6 fL Neutrophils (%) (Auto) 74.1 % Lymphocytes (%) (Auto) 18.3 % Monocytes (%) (Auto) 7.2 % Eosinophils (%) (Auto) 0.0 % Basophils (%) (Auto) 0.1 % Neutrophils # (Auto) 8.73 K/uL Lymphocytes # (Auto) 2.15 K/uL Monocytes # (Auto) 0.85 K/uL Eosinophils # (Auto) 0.00 K/uL Basophils # (Auto) 0.01 K/uL RDW Standard Deviation 41.8 fL RDW Coefficient of Variation 17.4 % Immature Granulocyte % (Auto) 0.3 % Immature Granulocyte # (Auto) 0.03 K/uL Microcytosis PRESENT Ovalocytes 1+ Sodium Level 141 mmol/L Potassium Level 4.2 mmol/L Chloride Level 108 mmol/L Carbon Dioxide Level 25 mmol/L Anion Gap 8.0 mmol/L Blood Urea Nitrogen 12 mg/dl Creatinine 0.71 mg/dl Est Creatinine Clear Calc Drug Dose 93.3 ml/min Estimated GFR () 105.8 Estimated GFR (Non- 91.3 BUN/Creatinine Ratio 17.2 Random Glucose 107 mg/dl Calcium Level 8.8 mg/dl Test 5/22/18 09:19 Vitamin B12 Level 356 pg/mL Folate 15.35 ng/mL (Minna Amado ., JEISON) Assessment & Plan SYNCOPE ?vasovagal syncope Pt with reported syncope couple seconds with associated globus like sensation. Had normal out-patient EEG on 01/11/18. -orthostatics -CT head -continue to monitor COPD EXACERBATION/HYPOXIA Pt not on home O2. Noted sats dropped to 89% on RA in ER. Pt been on 2L NC with sats 94-96%. Had negative PE study. Hasn't been getting her albuterol inhaler past 24 hours. Pt now with wheezing on exam today. -nebs -prednisone 40mg daily po -supplemental oxygen per protocol -consider 2 step prior to discharge -consider pulmonology consult, PFT's out patient GLOBUS SENSATION/HOARSENESS ?esophageal/GERD related vs anxiety vs breathing issues with COPD -ENT consulted - appreciate input GERD Seen by GI - started carafate and protonix 40mg BID -recommended EGD out-pt IRON DEFICIENCY ANEMIA Pt reports hx iron deficiency in past Hgb: 8.5. Ferritin: 2.4, Iron: 13, TIBC: 527, normal B12 & folate -ferrous sulfate 325mg po daily LUNG NODULES CT CHEST: A few scattered subcentimeter indeterminate pulmonary nodules with the largest measuring 4 mm as described above. -out-pt follow up recommended HTN -continue lisinopril, norvasc HLD -continue statin BIPOLAR DEPRESSION -continue Effexor, Abilify TOBACCO ABUSE 1ppd x 45 years. -smoking cessation discussed and pt reports does not plan on resuming smoking Follows with Dr Baldwin for routine care Plan for discharge back home Pt was seen with Dr Blum. See addendum Current Inpatient Medications: Current Inpatient Medications Medications (Trade) Dose Ordered Sig/Bladimir Route Start Time Stop Time Status Last Admin Dose Admin Ioversol (Optiray 320) 125 ml UD PRN IV 01/29/18 10:15 02/02/18 10:14 Enoxaparin Sodium (Lovenox Inj) 40 mg Q24H SC 01/29/18 21:00 02/28/18 20:59 01/29/18 20:43 40 MG Acetaminophen (Tylenol Tab) 650 mg Q4H PRN PO 01/29/18 16:15 6/20/18 16:14 Ondansetron HCl (Zofran Inj) 4 mg Q6H PRN IV 01/29/18 16:15 02/28/18 16:14 Albuterol (Ventolin Hfa Inhaler) 2 puffs Q8H PRN INH 01/29/18 16:15 02/28/18 16:14 Amlodipine Besylate (Norvasc Tab) 10 mg DAILY PO 01/30/18 09:00 03/01/18 08:59 01/30/18 08:21 10 MG Aripiprazole (Abilify Tab) 5 mg DAILY PO 01/30/18 09:00 03/01/18 08:59 01/30/18 08:21 5 MG Lisinopril (Zestril Tab) 20 mg DAILY PO 01/30/18 09:00 03/01/18 08:59 01/30/18 08:22 20 MG Simvastatin (Zocor Tab) 5 mg DAILY PO 01/30/18 09:00 03/01/18 08:59 01/30/18 08:21 5 MG Venlafaxine HCl (effeXOR TAB) 75 mg TID PO 01/29/18 21:00 02/28/18 20:59 01/30/18 13:38 75 MG Nicotine (Nicoderm Cq 21MG Patch) 1 patch QAM TD 01/30/18 09:00 03/01/18 08:59 01/29/18 19:29 1 PATCH Miscellaneous (Remove Nicoderm Patch) 1 ea HS N/A 01/29/18 21:00 02/28/18 20:59 Miscellaneous (Iv Fluids Completed) 1 ea PRN PRN N/A 01/29/18 21:00 01/29/19 20:59 Menthol (Nice Vicki) 1 vicki PRN PRN VICKI 01/30/18 11:45 03/01/18 11:44 01/30/18 12:03 24 VICKI Al Hydrox/Mg Hydrox/Simethicone (Maalox Max Susp) 30 ml Q6H PRN PO 01/30/18 13:00 03/01/18 12:59 Pantoprazole Sodium (Protonix Tab) 40 mg BIDM PO 01/30/18 17:00 03/01/18 16:59 Sucralfate (Carafate Susp) 1 gm QID PO 01/30/18 17:00 03/01/18 16:59 Ferrous Sulfate (Feosol Tab) 325 mg QAM PO 01/31/18 09:00 03/02/18 08:59 Miscellaneous (Xopenex/ Atrovent Neb) 1 ea Q6R INH 01/30/18 15:00 03/01/18 14:59 UNV Miscellaneous (Xopenex/ Atrovent Neb) 1 ea Q4R PRN INH 01/30/18 14:30 03/01/18 14:29 UNV (Minna Amado .JEISON) Attending Addendum Pt was seen and examined. Agreed with Minna MCHUGH exam, assessment and plan. Continue monitor for any syncope. (Jc Blum M.D.)
[2018-01-30] MEDS: LEVALBUTEROL 1.25MG/0.5ML NEB INH SCH ×2 (15:24→19:29)
[2018-01-30] MEDS: IPRATROPIUM BROMIDE NEB SOLN 0.02% 2.5 ML VIAL INH SCH ×2 (15:24→19:28)
--- NOTE | 2018-01-30 15:57 | Progress Note ---
Progress Note Date of Service January 30, 2018. Progress Note We found out patient's PCP is been belong to [facility] medical service, therefore we had a good sign out to hospitalist service of [facility] hospitalist team in his hospital,
--- NOTE | 2018-01-30 16:10 | DIAGNOSTIC IMAGING REPORT ---
HEAD WITHOUT CONTRAST (CT) CLINICAL HISTORY: 62 years-old Female with syncope. Acute syncopal event TECHNIQUE: Multiple axial CT images of the head were obtained without contrast. A dose lowering technique was utilized adhering to the principles of ALARA. CT DOSE: 638.56 mGycm COMPARISON: Carotid Doppler 01/29/2018 FINDINGS: No acute intracranial hemorrhage, midline shift, intracranial mass, hydrocephalus, territorial ischemia or abnormal extra-axial collection. The calvarium is intact. The paranasal sinuses, mastoid air cells, and middle ear cavities are clear. IMPRESSION: No acute intracranial abnormality. The above report was generated using voice recognition software. It may contain grammatical, syntax or spelling errors. Electronically signed by: Yamil Aldrich M.D. 01/30/2018 4:09 PM Dictated Date/Time: 01/30/2018 4:06 PM
[2018-01-30] MEDS: PANTOprazole SOD 40 MG TAB PO SCH (16:59)
[2018-01-30] MEDS: SUCRALFATE 1 GM/10 ML UDC PO SCH ×2 (16:59→20:36)
--- NOTE | 2018-01-30 17:51 | ENT CONSULTATION ---
DATE OF ADMISSION: 01/29/2018 DIAGNOSIS: Vocal cord nodules with leukoplakia. HISTORY: This 62-year-old female was admitted for two-week history of syncopal episodes. The first time was two weeks ago when she coughed and lost consciousness for 10-15 seconds. She had two additional episodes where her throat felt closing, was unable to breathe and was admitted for further evaluation. She does have a history of acute loss of voice due to laryngitis six weeks ago, described as sore throat and hoarseness associated with esophageal reflux symptoms. PAST MEDICAL HISTORY: Pertinent for hypertension and depression. PREVIOUS SURGERIES: Include cervical spine surgery, back surgery, hysterectomy and tonsillectomy. SOCIAL HISTORY: The patient has smoked for 45 years. ALLERGIES: None known. MEDICATIONS: Include Norvasc, Abilify, Zestril, Zocor, and Effexor. REVIEW OF SYSTEMS: As noted on chart. PHYSICAL EXAMINATION: GENERAL: WN, WD female, in no acute distress. She is alert and oriented. HEAD: Normocephalic. EYES: Normal. EARS: Some cerumen. NOSE: Nasal passage has septal deviation to the left with swollen turbinates and thick mucus. THROAT: Oropharynx is normal. Fiberoptic examination of the vocal cords showed right greater than left vocal cord nodules at the anterior one-third of the true vocal cords with evidence of leukoplakia with no other lesions. IMPRESSION: Vocal cord nodules. This is probably old vocal cord nodules that was aggravated six weeks ago. In any case, I doubt this is the cause of her syncope. RECOMMENDATIONS: Continue workup for the syncope. The vocal cord nodules can be reexamined in my office as an outpatient. If there is still evidence for leukoplakia, excisional biopsy would be indicated.
[2018-01-30] MEDS: ENOXAPARIN 40 MG/0.4 ML SYR SC SCH (20:39)
[2018-01-31] VITALS (8 sets, daily range): BP systolic 110–130; BP diastolic 71–86; PULSE 73–105; TEMP 36.5–36.9; O2SAT 91–96
[2018-01-31] MEDS: LEVALBUTEROL 1.25MG/0.5ML NEB INH SCH ×4 (01:48→19:06)
[2018-01-31] MEDS: IPRATROPIUM BROMIDE NEB SOLN 0.02% 2.5 ML VIAL INH SCH ×4 (01:48→19:06)
[2018-01-31 04:52] LABS: CALCIUM 8.9 mg/dl (8.5-10.1); CREATININE 0.75 mg/dl (0.60-1.20); POTASSIUM 4.4 mmol/L (3.5-5.1)
[2018-01-31] MEDS: ARIPIprazole TAB 5 MG TAB PO SCH (07:56)
[2018-01-31] MEDS: SUCRALFATE 1 GM/10 ML UDC PO SCH ×4 (07:56→20:31)
[2018-01-31] MEDS: PANTOprazole SOD 40 MG TAB PO SCH ×2 (07:56→16:44)
[2018-01-31] MEDS: VENLAFAXINE HCL 50 MG TAB PO SCH ×3 (07:56→20:31)
[2018-01-31] MEDS: AMLODIPINE BESYLATE 5 MG TAB PO SCH (07:57)
[2018-01-31] MEDS: NICOTINE 21 MG/24 HR TDSY TD SCH (07:57)
[2018-01-31] MEDS: FERROUS SULFATE 325 MG TAB PO SCH (07:57)
[2018-01-31] MEDS: LISINOPRIL 20 MG TAB PO SCH (07:57)
[2018-01-31] MEDS: SIMVASTATIN 5 MG TAB PO SCH (07:57)
--- NOTE | 2018-01-31 18:08 | Progress Note ---
Internal Med Progress Note Date of Service: January 31, 2018. Provider Documentation: SUBJECTIVE: resting comfortably in the bed has bad reflux presented with apnea like episodes and throat closing like feeling currently ok no sob or chest pain swallowing ok afebrile OBJECTIVE: Vital Signs-as noted below Exam: General-alert and awake and oriented. Not in distress ENT-normal hearing Neck-supple Lungs-cta b/l no wheezing or crackles Heart-s1 and s2 heard regular rate and rhythm,no Murmur Abdomen-soft bowel sounds present non tender no distension Extremities-no edema present non tender Neuro-alert and awake moves extremities Lab data as noted below. ASSESSMENT & PLAN: SYNCOPE ?vasovagal syncope Pt with reported syncope couple seconds with associated globus like sensation. Had normal out-patient EEG on 01/11/18. orthostatics CT head negative CTA chest no PE no more episodes continue to monitor COPD EXACERBATION/HYPOXIA Pt not on home O2. Noted sats dropped to 89% on RA in ER. Pt been on 2L NC with sats 94-96%. Had negative PE study. Hasn't been getting her albuterol inhaler past 24 hours. Pt now with wheezing on exam today. on nebs on prednisone 40mg daily po supplemental oxygen per protocol Will consider 2 step prior to discharge PFT's out patient GLOBUS SENSATION/HOARSENESS ?esophageal/GERD related vs anxiety vs breathing issues with COPD ENT consulted - appreciate input soft tissue neck unremarkable except for mildly distended oesophagus GERD Seen by GI - started Carafate and Protonix 40mg BID recommends EGD out-pt IRON DEFICIENCY ANEMIA Pt reports hx iron deficiency in past Hgb: 8.5. Ferritin: 2.4, Iron: 13, TIBC: 527, normal B12 & folate On ferrous sulfate 325mg po daily LUNG NODULES CT CHEST: A few scattered subcentimeter indeterminate pulmonary nodules with the largest measuring 4 mm as described above. out-pt follow up recommended HTN On lisinopril, Norvasc HLD On statin BIPOLAR DEPRESSION On Effexor, Abilify TOBACCO ABUSE 1ppd x 45 years. smoking cessation discussed and pt reports does not plan on resuming smoking DVT PROPHYLAXIS Lovenox-refusing scds DISPOSITION to be determined Vital Signs: Date Time Temp Pulse Resp B/P (MAP) Pulse Ox O2 Delivery O2 Flow Rate FiO2 01/31/18 16:00 Room Air 01/31/18 15:27 36.6 102 18 114/76 (89) 91 Room Air 01/31/18 14:05 97 14 92 Room Air 01/31/18 11:44 Room Air 01/31/18 11:41 36.9 93 18 121/80 (94) 91 Room Air 01/31/18 07:45 Nasal Cannula 2.0 01/31/18 07:22 36.5 73 20 130/84 (99) 94 Room Air 01/31/18 07:08 103 16 93 Room Air 01/31/18 04:17 36.6 93 18 128/86 (100) 96 Nasal Cannula 2.0 01/31/18 04:00 Nasal Cannula 2.0 01/31/18 00:00 Nasal Cannula 2.0 01/30/18 23:41 36.7 110 20 122/82 (95) 97 Room Air 106 124/77 (93) 106 122/82 (95) 01/30/18 20:16 37.0 97 20 114/76 (89) 92 Room Air 01/30/18 20:00 Nasal Cannula 2.0 01/30/18 19:29 100 16 95 Nasal Cannula 2.0 Lab Results: Results Past 24 Hours Test 01/31/18 04:12 Range/Units Sodium Level 139 136-145 mmol/L Potassium Level 4.4 3.5-5.1 mmol/L Chloride Level 106 98-107 mmol/L Carbon Dioxide Level 27 21-32 mmol/L Anion Gap 6.0 3-11 mmol/L Blood Urea Nitrogen 16 7-18 mg/dl Creatinine 0.75 0.60-1.20 mg/dl Est Creatinine Clear Calc Drug Dose 87.5 ml/min Estimated GFR () 99.0 Estimated GFR (Non- 85.4 BUN/Creatinine Ratio 21.9 10-20 Random Glucose 114 70-99 mg/dl Calcium Level 8.9 8.5-10.1 mg/dl
[2018-01-31] MEDS: ENOXAPARIN 40 MG/0.4 ML SYR SC SCH (20:32)
[2018-02-01] VITALS (10 sets, daily range): BP systolic 109–120; BP diastolic 71–80; PULSE 18–99; TEMP 36.7–37.2; O2SAT 90–95
[2018-02-01] MEDS: IPRATROPIUM BROMIDE NEB SOLN 0.02% 2.5 ML VIAL INH SCH ×3 (01:44→14:17)
[2018-02-01] MEDS: LEVALBUTEROL 1.25MG/0.5ML NEB INH SCH ×3 (01:44→14:17)
--- NOTE | 2018-02-01 05:47 | GASTROENTEROLOGY PROGRESS NOTE ---
DATE: 01/31/2018 GASTROENTEROLOGY INPATIENT PROGRESS NOTE SUBJECTIVE: Chart reviewed, the patient examined. The patient with history of microcytic anemia, admitted for what is either a syncopal episode or possible seizure. From a GI perspective, the patient denies history of overt rectal bleeding, melena recently but in [facility] underwent upper endoscopy and colonoscopy approximately 1 year ago for which she reports there were no abnormal findings. I spoke with the patient at length today and she actually reports that approximately 4-1/2 to 5 years ago, she was seen for a "significant colitis" that reoccurred about 3 years ago. However, she does not have a diagnosis of inflammatory bowel disease and no specific cause was found for that. She is not known to have an anemia in past years and only more recently a year or so ago was diagnosed with iron deficiency. There is also a component of chronic reflux disease. CURRENT MEDICATIONS: Today include pantoprazole, Carafate, prednisone, ipratropium, menthol, amlodipine, aripiprazole, Abilify, lisinopril, simvastatin, Effexor. ALLERGIES: The patient has no known drug allergies. REVIEW OF SYSTEMS: Otherwise noncontributory based on 13-point exam except for mentioned above. The source of the patient's possible syncope or seizure has not been determined that prompted ER evaluation. PHYSICAL EXAMINATION: VITAL SIGNS: Today, blood pressure 114/76, respirations 18, pulse 102, temperature 36.6, 91% on room air. GENERAL: The patient is awake, alert and oriented x3, accompanied by her . HEENT: Head: Normocephalic, atraumatic. Sclerae anicteric, conjunctivae moist. Oral mucosa moist. HEART: Normal S1, S2. NECK: Normal range of motion. LUNGS: Clear to auscultation without rales, rhonchi, or wheeze. ABDOMEN: Soft, flat, nontender, nondistended, normoactive bowel sounds. No rebound or guarding. I do not appreciate hepatosplenomegaly. EXTREMITIES: Without clubbing, cyanosis, or edema. RECTAL: Deferred. IMPRESSION AND PLAN: The patient with iron deficiency anemia and low hemoglobin, for which there are no laboratory tests today. Her hemoglobin is 8.5 on 01/30/2018 with an MCV that is 66.4 and platelets 297,000. Iron profile does indeed show elevated IBC 527, iron 13, ferritin is also low. We are awaiting the results of upper endoscopy and colonoscopy from [facility]; however, it is curious that this patient provides a history that she had 2 episodes of "severe colitis" that may have been responsible for some bleeding as well, 3 and approximately 5 years ago. It raised the possibility of an underlying chronic inflammatory bowel disease as the source of the patient's anemia, although prior records would be extremely helpful regarding this matter. She only had 1 colonoscopy that was screening at age 50 that she reports was negative and the colonoscopy and upper endoscopy last year. From iron deficiency standpoint, it may be advisable to consider the patient's parenteral iron and further supplemented oral iron given the patient's hemoglobin at this point. Ultimately, the patient may need repeat push enteroscopy to exclude AVMs, video capsule endoscopy and possible repeat colonoscopy. The patient had a partial hysterectomy at age 32 and does not report either vaginal or urologic bleeding. Apparently, after I saw the patient, I spoke with Dr. Carbone and the patient is being transferred to the [facility] service as this apparently is a [facility] patient and said that our service was no longer needed on the patient and that they would resume care. Therefore, I would sign off but would consider recommendations above as a starting point for the patient's continued evaluation. If the patient's providers prefer that we continue to see the patient, please contact us and we will do it either as an inpatient or outpatient as needed. All questions answered for the patient. MATTEO
[2018-02-01 06:08] LABS: CALCIUM 8.5 mg/dl (8.5-10.1); CREATININE 0.81 mg/dl (0.60-1.20); POTASSIUM 3.8 mmol/L (3.5-5.1)
[2018-02-01 06:11] LABS: HEMATOCRIT 29.2 % (37-47); HEMOGLOBIN 8.5 g/dL (12.0-16.0); MEAN CELL VOLUME 66.8 fL (80-100); MEAN CORPUSCULAR HEMOGLOBIN 19.5 pg (25-34); MEAN CORPUSCULAR HGB CONC 29.1 g/dl (32-36); MEAN PLATELET VOLUME 8.8 fL (7.4-10.4); PLATELET COUNT 313 K/uL (130-400); RED CELL DISTRIBUTION WIDTH CV 17.5 % (11.5-14.5); RED CELL DISTRIBUTION WIDTH SD 42.6 fL (36.4-46.3); WHITE BLOOD COUNT 16.42 K/uL (4.8-10.8)
[2018-02-01] MEDS: PANTOprazole SOD 40 MG TAB PO SCH ×2 (07:51→17:02)
[2018-02-01] MEDS: ARIPIprazole TAB 5 MG TAB PO SCH (07:51)
[2018-02-01] MEDS: SUCRALFATE 1 GM/10 ML UDC PO SCH ×3 (07:51→17:02)
[2018-02-01] MEDS: VENLAFAXINE HCL 50 MG TAB PO SCH ×2 (07:52→13:54)
[2018-02-01] MEDS: LISINOPRIL 20 MG TAB PO SCH (07:52)
[2018-02-01] MEDS: AMLODIPINE BESYLATE 5 MG TAB PO SCH (07:52)
[2018-02-01] MEDS: FERROUS SULFATE 325 MG TAB PO SCH (07:52)
[2018-02-01] MEDS: NICOTINE 21 MG/24 HR TDSY TD SCH (07:52)
[2018-02-01] MEDS: SIMVASTATIN 5 MG TAB PO SCH (07:52)
[2018-02-01] MEDS ORDERED: IRON SUCROSE INJ 100 MG in SODIUM CHLORIDE 0.9% 100ML 100 ML IV SCH (12:00)
--- NOTE | 2018-02-01 15:25 | Gastroenterology Progress Note ---
Progress Note Date of Service: February 01, 2018 Subjective Pt evaluation today including: conversation w/ patient, physical exam, chart review, lab review, review of studies, review of inpatient medication list cc f/u gerd HPI Episode of coughing this am but no regurgitaation associated with it. Review of Systems Respiratory: + shortness of breath (with episodes of coughing) Cardiac: No chest pain Medications Current Inpatient Medications Medications (Trade) Dose Ordered Sig/Bladimir Route Start Time Stop Time Status Last Admin Dose Admin Ioversol (Optiray 320) 125 ml UD PRN IV 01/29/18 10:15 02/02/18 10:14 Enoxaparin Sodium (Lovenox Inj) 40 mg Q24H SC 01/29/18 21:00 02/28/18 20:59 01/31/18 20:32 40 MG Acetaminophen (Tylenol Tab) 650 mg Q4H PRN PO 01/29/18 16:15 02/28/18 16:14 Ondansetron HCl (Zofran Inj) 4 mg Q6H PRN IV 01/29/18 16:15 02/28/18 16:14 Albuterol (Ventolin Hfa Inhaler) 2 puffs Q8H PRN INH 01/29/18 16:15 02/28/18 16:14 01/30/18 15:15 2 PUFFS Amlodipine Besylate (Norvasc Tab) 10 mg DAILY PO 01/30/18 09:00 03/01/18 08:59 02/01/18 07:52 10 MG Aripiprazole (Abilify Tab) 5 mg DAILY PO 01/30/18 09:00 03/01/18 08:59 02/01/18 07:51 5 MG Lisinopril (Zestril Tab) 20 mg DAILY PO 01/30/18 09:00 03/01/18 08:59 02/01/18 07:52 20 MG Simvastatin (Zocor Tab) 5 mg DAILY PO 01/30/18 09:00 03/01/18 08:59 02/01/18 07:52 5 MG Venlafaxine HCl (effeXOR TAB) 75 mg TID PO 01/29/18 21:00 02/28/18 20:59 02/01/18 13:54 75 MG Nicotine (Nicoderm Cq 21MG Patch) 1 patch QAM TD 01/30/18 09:00 03/01/18 08:59 02/01/18 07:52 1 PATCH Miscellaneous (Remove Nicoderm Patch) 1 ea HS N/A 01/29/18 21:00 02/28/18 20:59 01/31/18 20:32 1 EA Miscellaneous (Iv Fluids Completed) 1 ea PRN PRN N/A 01/29/18 21:00 01/29/19 20:59 Menthol (Nice Stephanie) 1 stephanie PRN PRN STEPHANIE 01/30/18 11:45 03/01/18 11:44 01/30/18 12:03 24 STEPHANIE Al Hydrox/Mg Hydrox/Simethicone (Maalox Max Susp) 30 ml Q6H PRN PO 01/30/18 13:00 03/01/18 12:59 01/31/18 10:42 30 ML Pantoprazole Sodium (Protonix Tab) 40 mg BIDM PO 01/30/18 17:00 03/01/18 16:59 02/01/18 07:51 40 MG Sucralfate (Carafate Susp) 1 gm QID PO 01/30/18 17:00 03/01/18 16:59 02/01/18 12:12 1 GM Ferrous Sulfate (Feosol Tab) 325 mg QAM PO 01/31/18 09:00 03/02/18 08:59 02/01/18 07:52 325 MG Prednisone (PredniSONE TAB) 40 mg DAILY PO 01/30/18 15:00 03/01/18 14:59 02/01/18 07:52 40 MG Ipratropium [place] (Atrovent 0.02% 0.5MG/2.5ML Neb) 0.5 mg Q6R INH 01/30/18 15:00 03/01/18 14:59 02/01/18 14:17 0.5 MG Levalbuterol (Xopenex 1.25MG/ 0.5ML Neb) 1.25 mg Q6R INH 01/30/18 15:00 03/01/18 14:59 02/01/18 14:17 1.25 MG Ipratropium [place] (Atrovent 0.02% 0.5MG/2.5ML Neb) 0.5 mg Q4R PRN INH 01/30/18 15:00 03/01/18 14:59 Levalbuterol (Xopenex 0.63 Mg/ 3 Ml Neb) 0.63 mg Q4R PRN INH 01/30/18 15:00 03/01/18 14:59 Objective Vital Signs Date Time Temp Pulse Resp B/P (MAP) Pulse Ox O2 Delivery O2 Flow Rate FiO2 02/01/18 14:51 37.2 93 18 109/77 (88) 94 Room Air 02/01/18 14:17 98 16 91 Room Air 02/01/18 12:00 Room Air 02/01/18 11:23 98 20 112/71 (85) 02/01/18 11:22 36.7 18 20 114/74 (87) 94 Room Air 02/01/18 07:45 Room Air 02/01/18 07:16 37.1 92 18 119/80 (93) 93 Room Air 02/01/18 07:11 97 16 94 Room Air 02/01/18 05:25 37.0 97 17 116/76 (89) 93 Room Air 02/01/18 04:00 Room Air 02/01/18 01:44 99 16 95 Room Air 02/01/18 00:11 37.0 87 18 117/71 (86) 90 Room Air 117/75 (89) 120/75 (90) 02/01/18 00:00 Room Air 01/31/18 20:00 Room Air 01/31/18 20:00 36.7 102 18 110/71 (84) 92 Room Air 01/31/18 19:06 105 16 93 Room Air 01/31/18 16:00 Room Air 01/31/18 15:27 36.6 102 18 114/76 (89) 91 Room Air Physical Exam General Appearance: WD/WN, no apparent distress Respiratory/Chest: lungs clear, no respiratory distress Cardiovascular: regular rate, rhythm Abdomen: normal bowel sounds, non tender, soft Neurologic/Psych: alert, normal mood/affect Laboratory Results Last 24 Hours Test 02/01/18 05:06 White Blood Count 16.42 K/uL Red Blood Count 4.37 M/uL Hemoglobin 8.5 g/dL Hematocrit 29.2 % Mean Corpuscular Volume 66.8 fL Mean Corpuscular Hemoglobin 19.5 pg Mean Corpuscular Hemoglobin Concent 29.1 g/dl RDW Standard Deviation 42.6 fL RDW Coefficient of Variation 17.5 % Platelet Count 313 K/uL Mean Platelet Volume 8.8 fL Sodium Level 140 mmol/L Potassium Level 3.8 mmol/L Chloride Level 106 mmol/L Carbon Dioxide Level 27 mmol/L Anion Gap 7.0 mmol/L Blood Urea Nitrogen 20 mg/dl Creatinine 0.81 mg/dl Est Creatinine Clear Calc Drug Dose 80.3 ml/min Estimated GFR () 90.2 Estimated GFR (Non- 77.8 BUN/Creatinine Ratio 25.1 Random Glucose 79 mg/dl Calcium Level 8.5 mg/dl Assessment and Plan gerd--Rx with protonix 40 mg po bid and carafate suspension qid. Fe def anemia--had EGD/colo one year ago. Recommend ferrous sulfate or equivalent daily. 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 Pt would like to see our GI group on DC so recommend f/u with us on DC for OV and to set up EGD. Will sign off. Please call for further questions.
[2018-02-01] MEDS ORDERED: PRT40 PO ×2 (18:00→18:05)
[2018-02-01] MEDS ORDERED: FRRS300 PO ×2 (18:00→18:05)
[2018-02-01] MEDS ORDERED: PRED10TA PO ×2 (18:00→18:05)
[2018-02-01] MEDS ORDERED: CRFUDL PO ×2 (18:00→18:05)
--- NOTE | 2018-02-01 18:02 | Discharge Instructions ---
Discharge Instructions Date of Service February 01, 2018. Admission Reason for Admission: Syncope Discharge Discharge Diagnosis / Problem: SYNCOPE, GERD, COPD EX Discharge Goals Goal(s): Decrease discomfort, Improve function Activity Recommendations Activity Limitations: resume your previous activity . Instructions / Follow-Up Instructions / Follow-Up FOLLOWUP WITH FAMILY DOCTOR ON January AT 11AM GI REFERRAL BY FAMILY DOCTOR FOLLOWUP WITH ENT IN 1-2 WEEKS FOR VOCAL CORD NODULES STRONGLY ADVICE TO QUIT SMOKING FOLLOWUP WITH FAMILY DOCTOR FOR LUNG NODULES Current Hospital Diet Patient's current hospital diet: AHA Diet (Heart Healthy) Discharge Diet Recommended Diet: AHA Diet (Heart Healthy) Pending Studies Studies pending at discharge: no Medical Emergencies . Who to Call and When: Medical Emergencies: If at any time you feel your situation is an emergency, please call 911 immediately. . Non-Emergent Contact Non-Emergency issues call your: Primary Care Provider . . "Provider Documentation" section prepared by Terry Leong. .
--- NOTE | 2018-02-01 18:27 | Progress Note ---
Internal Med Progress Note Date of Service: February 01, 2018. Provider Documentation: SUBJECTIVE: resting comfortably feeling fine no sob no cough afebrile eating fine want to go home OBJECTIVE: Vital Signs-as noted below Exam: General-alert and awake and oriented. Not in distress ENT-normal hearing Neck-supple Lungs-cta b/l no wheezing or crackles Heart-s1 and s2 heard regular rate and rhythm,no Murmur Abdomen-soft bowel sounds present non tender no distension Extremities-no edema present non tender Neuro-alert and awake moves extremities Lab data as noted below. ASSESSMENT & PLAN: SYNCOPE ?vasovagal syncope Pt with reported syncope couple seconds with associated globus like sensation. Had normal out-patient EEG on 01/11/18. orthostatics CT head negative CTA chest no PE no more episodes continue to monitor COPD EXACERBATION/HYPOXIA Pt not on home O2. Noted sats dropped to 89% on RA in ER. Pt been on 2L NC with sats 94-96%. Had negative PE study. Hasn't been getting her albuterol inhaler past 24 hours. Pt now with wheezing on exam today. on nebs on prednisone 40mg daily po supplemental oxygen per protocol saturating fine on room air d/c on prednisone taper advice for smoking cessation PFT's out patient GLOBUS SENSATION/HOARSENESS ?esophageal/GERD related vs anxiety vs breathing issues with COPD ENT consulted - appreciate input. Needs ENT followup for vocal cord nodules soft tissue neck unremarkable except for mildly distended oesophagus GERD Seen by GI - started Carafate and Protonix 40mg BID recommends EGD out-pt IRON DEFICIENCY ANEMIA Pt reports hx iron deficiency in past Hgb: 8.5. Ferritin: 2.4, Iron: 13, TIBC: 527, normal B12 & folate received one dose of Venofer today On ferrous sulfate 325mg po daily LUNG NODULES CT CHEST: A few scattered subcentimeter indeterminate pulmonary nodules with the largest measuring 4 mm as described above. out-pt follow up recommended HTN On lisinopril, Norvasc HLD On statin BIPOLAR DEPRESSION On Effexor, Abilify TOBACCO ABUSE 1ppd x 45 years. smoking cessation discussed and pt reports does not plan on resuming smoking Discharged home Vital Signs: Date Time Temp Pulse Resp B/P (MAP) Pulse Ox O2 Delivery O2 Flow Rate FiO2 02/01/18 16:08 Room Air 02/01/18 14:51 37.2 93 18 109/77 (88) 94 Room Air 02/01/18 14:17 98 16 91 Room Air 02/01/18 12:00 Room Air 02/01/18 11:23 98 20 112/71 (85) 02/01/18 11:22 36.7 18 20 114/74 (87) 94 Room Air 02/01/18 07:45 Room Air 02/01/18 07:16 37.1 92 18 119/80 (93) 93 Room Air 02/01/18 07:11 97 16 94 Room Air 02/01/18 05:25 37.0 97 17 116/76 (89) 93 Room Air 02/01/18 04:00 Room Air 02/01/18 01:44 99 16 95 Room Air 02/01/18 00:11 37.0 87 18 117/71 (86) 90 Room Air 117/75 (89) 120/75 (90) 02/01/18 00:00 Room Air 01/31/18 20:00 Room Air 01/31/18 20:00 36.7 102 18 110/71 (84) 92 Room Air 01/31/18 19:06 105 16 93 Room Air Lab Results: Results Past 24 Hours Test 02/01/18 05:06 Range/Units White Blood Count 16.42 4.8-10.8 K/uL Red Blood Count 4.37 4.2-5.4 M/uL Hemoglobin 8.5 12.0-16.0 g/dL Hematocrit 29.2 37-47 % Mean Corpuscular Volume 66.8 80-100 fL Mean Corpuscular Hemoglobin 19.5 25-34 pg Mean Corpuscular Hemoglobin Concent 29.1 32-36 g/dl RDW Standard Deviation 42.6 36.4-46.3 fL RDW Coefficient of Variation 17.5 11.5-14.5 % Platelet Count 313 130-400 K/uL Mean Platelet Volume 8.8 7.4-10.4 fL Sodium Level 140 136-145 mmol/L Potassium Level 3.8 3.5-5.1 mmol/L Chloride Level 106 98-107 mmol/L Carbon Dioxide Level 27 21-32 mmol/L Anion Gap 7.0 3-11 mmol/L Blood Urea Nitrogen 20 7-18 mg/dl Creatinine 0.81 0.60-1.20 mg/dl Est Creatinine Clear Calc Drug Dose 80.3 ml/min Estimated GFR () 90.2 Estimated GFR (Non- 77.8 BUN/Creatinine Ratio 25.1 10-20 Random Glucose 79 70-99 mg/dl Calcium Level 8.5 8.5-10.1 mg/dl
--- NOTE | 2018-02-01 19:41 | Discharge Summary ---
Discharge Summary Date of Service February 01, 2018. Discharge Summary Admission Date: January 29, 2018 at 17:00 Discharge Date: February 01, 2018 Discharge Disposition: Home Principal Diagnosis: SYNCOPE? GERD COPD EX MILD Secondary Diagnoses/Problems: 1. GERD 2. HTN 3. Depression Procedures: SOFT TISSUE NECK CT: 1. Normal CT examination of the airway. No evidence of tracheal stenosis. 2. Mildly distended esophagus. Consider fluoroscopic esophagram if there is concern for esophageal dysmotility or reflux. 3. Findings concerning for right vertebral artery occlusion or congenitally diminutive. Carotid Doppler ultrasound could be considered as clinically appropriate. 4. Deformity of the neck of the right humerus likely posttraumatic. Correlate clinically. CTA CHEST: 1. No evidence for pulmonary embolus. 2. Moderate hiatus hernia. There is a fluid-filled nondistended esophagus which could be due to gastroesophageal reflux or dysmotility. 3. A few scattered subcentimeter indeterminate pulmonary nodules with the largest measuring 4 mm as described above. Please refer to the chart below for recommended follow-up. CAROTID US: 1. Antegrade flow identified within portions of the right vertebral artery. However, apparent age indeterminate occlusion of the right vertebral artery shown on prior CT of the neck is not well depicted on this exam. A follow-up CTA of the neck could be obtained for further evaluation. 2. No evidence of a hemodynamically significant stenosis within the bilateral common carotid and internal carotid arteries. CT HEAD: No acute intracranial abnormality. Consultations: GI ENT Medication Reconciliation New Medications: Prednisone Tab (Prednisone) 10 Mg Tab 30 MG PO UD, #12 TAB PREDNSIONE 30MG PO DAILY X 2 DAYS THEN PREDNSIONE 20MG PO DAILY X 2 DAYS THEN PREDNSIONE 10MG PO DAILY X 2 DAYS THEN STOP Ferrous Sulfate (Ferrous Sulfate) 325 Mg Tab 325 MG PO QAM, #30 TAB 1 Refill Pantoprazole (Pantoprazole Sodium) 40 Mg Tab 40 MG PO BIDM, #60 TAB 1 Refill Sucralfate (Sucralfate) 1 Gm/10 Ml Susp 1 GM PO QID for 10 Days Continued Medications: Albuterol Hfa (Ventolin Hfa) 200 Puffs/07971 Mcg Aers 2 PUFFS INH Q8H PRN for SOB/Wheezing, #1 INHALER Amlodipine (Norvasc) 10 Mg Tab 10 MG PO DAILY, TAB Aripiprazole (Abilify) 5 Mg Tab 5 MG PO DAILY, TAB Lisinopril (Zestril) 20 Mg Tab 20 MG PO DAILY, TAB Simvastatin (Zocor) 5 Mg Tab 5 MG PO DAILY, TAB Venlafaxine Hcl (Effexor) 75 Mg Tab 75 MG PO TID, TAB Admission Information HPI (per Admitting provider): Patient is a 62yo female with history of depression and hypertension presenting with two weeks of frequent "syncopal" episodes. Patient states that the first episode occurred appx 2 weeks ago when she was riding in the car with her . She coughed then lost consciousness for 10-15 seconds. She also reports bladder incontinence at that time. She was seen by her PCP Dr. Baldwin after that event and had an EEG performed for concern for seizures. She was told that the EEG was normal but it didn't completely rule out seizure. Her second episode occurred a few days later when she was sleeping and she had an episode of not being able to breath. She states that her throat felt tight and she couldn't move air in or out. This lasted approximately 10-15 seconds before she was able to take a breath and was associated with urinary incontinence. She reports two additional episodes of her throat feeling closed and unable to move air in or out. Last episode was yesterday afternoon. Additionally patient has had bronchitis and laryngitis for the last 6 weeks. She initially lost her voice entirely 6 weeks ago. She reports having a sore throat and being hoarse for 6 weeks. She was prescribed Prednisone at home. Patient also endorses globus sensation and some recent heartburn. She denies fevers/chills/CP/palpitations/SOB/wheeze/swelling of the tongue or face. Denies itching or rash. Denies abdominal complaints/nausea/vomiting/ diarrhea or constipation. She is unsure if she snores. Patient reportedly had an endoscopy performed 1 year ago and was told that she had GERD. Patient had decreased oxygen saturation in the ER 91% Physical Exam (per Admitting): General: obese female, NAD, resting comfortably Skin: warm, dry, intact, no rashes or lesions HEENT: NC/AT, PERRL, EOMI, anicteric sclera, neck supple, no JVD, no thyromegaly, no JVD, OP clear with no lesions/edema, dentition intact, no swelling of soft tissues or tongue Heart: +S1/S2, regular, tachycardic, no m/r/g Lungs: equal air entry bilaterally, no rales/rhonchi/wheezes, no stridor, no respiratory distress Abdomen: +BS, soft, NT/ND, no masses Extremities: warm, well perfused, no clubbing/cyanosis or edema Neuro: nonfocal Hospital Course SYNCOPE ?vasovagal syncope Pt with reported syncope couple seconds with associated globus like sensation. Had normal out-patient EEG on 01/11/18. orthostatics CT head negative CTA chest no PE no more episodes continue to monitor COPD EXACERBATION/HYPOXIA Pt not on home O2. Noted sats dropped to 89% on RA in ER. Pt been on 2L NC with sats 94-96%. Had negative PE study. Hasn't been getting her albuterol inhaler past 24 hours. Pt now with wheezing on exam today. on nebs on prednisone 40mg daily po supplemental oxygen per protocol saturating fine on room air d/c on prednisone taper advice for smoking cessation PFT's out patient GLOBUS SENSATION/HOARSENESS ?esophageal/GERD related vs anxiety vs breathing issues with COPD ENT consulted - appreciate input. Needs ENT followup for vocal cord nodules soft tissue neck unremarkable except for mildly distended oesophagus GERD Seen by GI - started Carafate and Protonix 40mg BID recommends EGD out-pt IRON DEFICIENCY ANEMIA Pt reports hx iron deficiency in past Hgb: 8.5. Ferritin: 2.4, Iron: 13, TIBC: 527, normal B12 & folate received one dose of Venofer today On ferrous sulfate 325mg po daily LUNG NODULES CT CHEST: A few scattered subcentimeter indeterminate pulmonary nodules with the largest measuring 4 mm as described above. out-pt follow up recommended HTN On lisinopril, Norvasc HLD On statin BIPOLAR DEPRESSION On Effexor, Abilify TOBACCO ABUSE 1ppd x 45 years. smoking cessation discussed and pt reports does not plan on resuming smoking Discharged home Total time spent on discharge = 35MINUTES This includes examination of the patient, discharge planning, medication reconciliation, and communication with other providers. Discharge Instructions Discharge Instructions Date of Service February 01, 2018. Admission Reason for Admission: Syncope Discharge Discharge Diagnosis / Problem: SYNCOPE, GERD, COPD EX Discharge Goals Goal(s): Decrease discomfort, Improve function Activity Recommendations Activity Limitations: resume your previous activity . Instructions / Follow-Up Instructions / Follow-Up FOLLOWUP WITH FAMILY DOCTOR ON January AT 11AM GI REFERRAL BY FAMILY DOCTOR FOLLOWUP WITH ENT IN 1-2 WEEKS FOR VOCAL CORD NODULES STRONGLY ADVICE TO QUIT SMOKING FOLLOWUP WITH FAMILY DOCTOR FOR LUNG NODULES Current Hospital Diet Patient's current hospital diet: AHA Diet (Heart Healthy) Discharge Diet Recommended Diet: AHA Diet (Heart Healthy) Pending Studies Studies pending at discharge: no Medical Emergencies . Who to Call and When: Medical Emergencies: If at any time you feel your situation is an emergency, please call 911 immediately. . Non-Emergent Contact Non-Emergency issues call your: Primary Care Provider
== END 2018-02-01 19:05 | disposition home or self-care (01) | DRG 392 ==
LOC: C.EDB 09:27 → ENRESERV 16:59 → C.MED 17:00
PROVIDERS: ADMIT Internal Medicine; ATTEND Internal Medicine
DX: K21.9 Gastro-esophageal reflux disease without esophagitis (principal); J44.1 Chronic obstructive pulmonary disease with (acute) exacerbation; R06.81 Apnea, not elsewhere classified; R55 Syncope and collapse; D50.9 Iron deficiency anemia, unspecified; F17.200 Nicotine dependence, unspecified, uncomplicated; R49.0 Dysphonia; Z82.49 Family history of ischemic heart disease and other diseases of the circulatory system; J38.3 Other diseases of vocal cords; F31.9 Bipolar disorder, unspecified; E78.5 Hyperlipidemia, unspecified; R09.02 Hypoxemia; R91.8 Other nonspecific abnormal finding of lung field; Z86.010 Personal history of colon polyps

== ENCOUNTER → 2018-04-09 | Day surgery (SDC) | payer OTHER ==
[2018-04-04 13:06] VITALS: BMI 39.0
[~2018-04-09] VITALS: Ht 157.5 cm; Wt 98.2 kg
[~2018-04-09] MED LIST: ABL/5 PO; AMLO10TA3 PO; ASA PO; EFF75 PO; LIDOCAINE HCL 2% 2 ML VIAL (20MG/ML) ONE; LISI-725 PO; PANT1TAB4 PO; PROPOFOL IV EMULSION 10 MG/ML 20 ML VIAL ONE; SIMV5TAB2 PO; SODIUM CHLORIDE 0.9% 500ML 500 ML IV ONE; VNTHFA/IN INH
[2018-04-09 08:07] VITALS: Ht 157.5 cm; Wt 98.2 kg
--- NOTE | 2018-04-09 08:44 | Endo History and Physical ---
History & Physical Date of Service: Apr 09, 2018. Chief Complaint: Fe defiency anemia dysphagia colon polyps Referring Physician: DR. BROWN History of Present Illness pt with hx of anemia and dysphagia and colon polyps Past Surgical History Hx Cardiac Surgery: No Hx Internal Defibrillator: No Hx Pacemaker: No Hx Abdominal Surgery: Yes (HYSTERECTOMY ) Hx of Implantable Prosthesis: No Hx Post-Op Nausea and Vomiting: No Hx Cancer Surgery: No Hx Thoracic Surgery: No Hx Orthopedic: Yes (LUMBAR FUSION,NECK SURG-BONE FUSION) Hx Urinary Tract Surgery: Yes (ESWL X 2) Family History None Social History Smoking Status: Former Smoker Hx Substance Use: No Hx Alcohol Use: Yes (OCC SOCIAL) Allergies Coded Allergies: No Known Allergies (Unverified , 04/09/18) Current Medications Reported Home Medications Medications Dose Route/Sig Max Daily Dose Days Date Category [Asa] 325 PO QD 04/09/18 Reported Pantoprazole Sodium (Pantoprazole) 40 Mg Tab 40 Mg PO BIDM 02/01/18 Rx Ventolin Hfa (Albuterol) 200 Puffs/22904 Mcg Aers 2 Puffs INH Q8H PRN 01/29/18 Reported Abilify (Aripiprazole) 5 Mg Tab 5 Mg PO QAM 01/29/18 Reported Effexor (Venlafaxine Hcl) 75 Mg Tab 75 Mg PO TID 01/29/18 Reported Norvasc (Amlodipine Besylate) 10 Mg Tab 10 Mg PO QAM 01/29/18 Reported Zestril (Lisinopril) 20 Mg Tab 20 Mg PO QAM 01/29/18 Reported Zocor (Simvastatin) 5 Mg Tab 5 Mg PO QAM 01/29/18 Reported Vital Signs Weight (Kilograms): 98.18 Height (Feet): 5 Height (Inches): 2 Date Time Temp Pulse Resp B/P (MAP) Pulse Ox O2 Delivery O2 Flow Rate FiO2 04/09/18 08:14 36.8 92 16 102/72 (82) 94 Room Air Physical Exam General Appearance: no apparent distress Respiratory/Chest: Auscultation: breath sounds normal Cardiovascular: Heart Auscultation: RRR Abdomen: Inspection & Palpation: soft Assessment and Plan stable for EGD and colonoscopy
--- NOTE | 2018-04-09 09:34 | GI REPORT ---
Patient Name: Taina Linares Procedure Date: 04/09/2018 8:35 AM Date of : 1955 Admit Type: Outpatient Age: 63 Gender: Female Attending MD: Neto Reinoso MD Procedure: Upper GI endoscopy Providers: Neto Reinoso MD Referring MD: Beverley Orantes, KINDRA, Errol Baldwin Indications: Heartburn Medicines: See the Anesthesia note for documentation of the administered medications Complications: No immediate complications. Estimated Blood Loss: Estimated blood loss: none. Procedure: Pre-Anesthesia Assessment: - Prior to the procedure, a History and Physical was performed, and patient medications, allergies and sensitivities were reviewed. The patient's tolerance of previous anesthesia was reviewed. - The risks and benefits of the procedure and the sedation options and risks were discussed with the patient. All questions were answered and informed consent was obtained. - Patient identification and proposed procedure were verified prior to the procedure by the physician and the nurse. The procedure was verified in the pre-procedure area. - Pre-procedure physical examination revealed no contraindications to sedation. - After reviewing the risks and benefits, the patient was deemed in satisfactory condition to undergo the procedure. After obtaining informed consent, the endoscope was passed under direct vision. Throughout the procedure, the patient's blood pressure, pulse, and oxygen saturations were monitored continuously. The On-site loaner was introduced through the mouth, and advanced to the third part of duodenum. The upper GI endoscopy was accomplished without difficulty. The patient tolerated the procedure well. Findings: LA Grade C (one or more mucosal breaks continuous between tops of 2 or more mucosal folds, less than 75% circumference) esophagitis with no bleeding was found. A large hiatal hernia was present. The examined duodenum was normal. The cardia and gastric fundus were normal on retroflexion. Impression: - LA Grade C reflux esophagitis. - Large hiatal hernia. - Normal examined duodenum. - No specimens collected. Recommendation: - Perform a colonoscopy today. Neto Reinoso M.D. Neto Reinoso MD 04/09/2018 9:33:47 AM This report has been signed electronically. Note Initiated On: 04/09/2018 8:35 AM Number of Addenda: 0 I attest to the content of the Intraoperative Record and orders documented therein, exceptions below {[id number]}
--- NOTE | 2018-04-09 09:36 | GI REPORT ---
Patient Name: Taina Linares Procedure Date: 04/09/2018 8:34 AM Date of : 1955 Admit Type: Outpatient Age: 63 Gender: Female Attending MD: Neto Reinoso MD Procedure: Colonoscopy Providers: Neto Reinoso MD Referring MD: Beverley Orantes NP, Errol Baldwin Indications: High risk colon cancer surveillance: Personal history of colonic polyps, Incidental - Anemia Medicines: See the Anesthesia note for documentation of the administered medications Complications: No immediate complications. Estimated Blood Loss: Estimated blood loss: none. Procedure: Pre-Anesthesia Assessment: - See the other procedure note for documentation of the pre-procedure assessment. After I obtained informed consent, the scope was passed under direct vision. Throughout the procedure, the patient's blood pressure, pulse, and oxygen saturations were monitored continuously. The scope was introduced through the anus and advanced to the cecum, identified by appendiceal orifice and ileocecal valve. The colonoscopy was performed without difficulty. The patient tolerated the procedure well. The quality of the bowel preparation was fair. Findings: The perianal and digital rectal examinations were normal. The entire examined colon appeared normal on direct and retroflexion views. Impression: - Preparation of the colon was fair. - The entire examined colon is normal on direct and retroflexion views. - No specimens collected. Recommendation: - Repeat colonoscopy in 3 years because the bowel preparation was poor. - Discharge patient to home. Neto Reinoso M.D. Neto Reinoso MD 04/09/2018 9:35:50 AM This report has been signed electronically. Note Initiated On: 04/09/2018 8:34 AM Number of Addenda: 0 I attest to the content of the Intraoperative Record and orders documented therein, exceptions below {[id number]}
--- NOTE | 2018-04-09 09:45 | Discharge Instructions ---
Endoscopy Patient Instructions Date / Procedure(s) Performed Apr 09, 2018. Colonoscopy, EGD Allergy Information Coded Allergies: No Known Allergies (Unverified , 04/09/18) Discharge Date / Findings Apr 09, 2018. erosive esophagitis and large hiatal hernia normal colonoscopy with fair prep. Provider Instructions Activity Restrictions - No exercising or heavy lifting for 24 hours. - Do not drink alcohol the day of the procedure. - Do not drive a car or operate machinery until the day after the procedure. - Do not make any important decisions or sign important papers in 24 hours after the procedure. Following Day: - Return to full activity which may include returning to work/school. Diet Start your diet with liquids and light foods (jello, soup, juice, toast). Then eat your usual diet if not nauseated. Treatment For Common After Affects For mild abdominal pain, bloating, or excessive gas: - Rest - Eat lightly - Lie on right side Follow-Up Information Follow-up with DR. BROWN as scheduled Anesthesia Information What You Should Know You have had a procedure that required some medicine to reduce anxiety and discomfort. This treatment is called moderate sedation. After receiving the treatment, you may be sleepy, but you will be able to breathe on your own. The effects of the treatment may last for several hours. Follow these instructions along with Activity/Diet recommendations noted above: * Do NOT do anything where dizziness or clumsiness would be dangerous. * Rest quietly at home today, then you can be up and about tomorrow. * Have a responsible person stay with you the rest of today. * You may have had an I.V. today. If so, you may take the dressing off later today. Recommendations Call your doctor if: * Trouble breathing * Continuous vomiting for more than 24 hours * Temperature above 101 degrees * Severe abdominal pain or bloating * Pain not relieved by pain medicine ordered * There is increased drainage or redness from any incision * A large amount of rectal bleeding greater than 2-3 tablespoons. (If you had a polyp/s removed or have hemorrhoids, a small amount of blood - from the rectum is to be expected.) * You have any unanswered questions or concerns. IN THE EVENT OF A SERIOUS EMERGENCY, GO TO THE NEAREST EMERGENCY ROOM Your discharge instructions were prepared by provider Neto Reinoso. Patient Instructions Signature Page Taina Linares Patient (or Guardian) Signature/Date: I have read and understand the instructions given to me by my caregivers. Caregiver/RN/Doctor Signature/Date: The above-named patient and/or guardian has received patient instructions on this date. + Original Patient Signature Page (only) stays with chart. Please make copy for patient.
[2018-04-09 10:00] VITALS: BP 113/85; PULSE 87; O2SAT 97
--- NOTE | 2018-04-09 11:23 | Anesthesiology Progress Note ---
Anesthesia Post Op Note Date & Time Apr 09, 2018 at 11:23 Vital Signs Pain Intensity: 0 Vital Signs Past 12 Hours Date Time Temp Pulse Resp B/P (MAP) Pulse Ox O2 Delivery O2 Flow Rate FiO2 04/09/18 10:00 87 20 113/85 (94) 97 Room Air 04/09/18 09:45 82 20 103/89 (94) 98 Room Air 04/09/18 09:30 36.5 96 16 102/66 (78) 96 Room Air 04/09/18 08:14 36.8 92 16 102/72 (82) 94 Room Air Notes Mental Status: alert / awake / arousable, participated in evaluation Pt Amnestic to Procedure: Yes Nausea / Vomiting: adequately controlled Pain: adequately controlled Airway Patency, RR, SpO2: stable & adequate BP & HR: stable & adequate Hydration State: stable & adequate Anesthetic Complications: no major complications apparent
== END | disposition home or self-care (01) ==
LOC: C.GI 07:41
PROVIDERS: ATTEND Internal Medicine Gastroenterology
DX: D50.9 Iron deficiency anemia, unspecified (principal); K21.0 Gastro-esophageal reflux disease with esophagitis; K44.9 Diaphragmatic hernia without obstruction or gangrene; Z86.010 Personal history of colon polyps; J44.9 Chronic obstructive pulmonary disease, unspecified; I10 Essential (primary) hypertension; Z87.891 Personal history of nicotine dependence; Z79.899 Other long term (current) drug therapy; M19.90 Unspecified osteoarthritis, unspecified site

== ENCOUNTER 2024-01-22 05:38 | Observation (INO) ==
--- NOTE | 2024-01-09 13:53 | Anesthesiology Consultation ---
Date of Service January 09, 2024 Assessment & Plan (1) Encounter for pre-operative examination: - Per phonograph needle tip maker on 01/09/24: No known infectious disease contacts, current infectious disease symptoms in past 10 days or COVID positive test result in the past 30 days. Chart Review Chart Review: Acceptable Risk for Surgery and Patient NOT seen in Pre Admission Testing History Surgery Operation Date: 01/22/24 07:15 Proposed Procedures p Open Repair Ventral Hernia Repair with Possible Mesh - Arun Donato MD Height/Weight Height: 5 ft 3 in Weight: 93.894 kg Allergies Allergy/AdvReac Type Severity Reaction Status Date / Time codeine Allergy Mild "itchy" Verified 04/04/22 05:47 Medications Home Medications Medication Instructions Recorded Confirmed Last Taken amlodipine 10 mg tablet 10 mg PO QAM 02/23/21 01/09/24 04/04/22 04:30 venlafaxine 75 mg capsule,extended 75 mg PO QAM 02/23/21 01/09/24 04/04/22 04:30 release 24 hr (Effexor XR) fluticasone 250 mcg-salmeterol 50 1 inh inhalation BID 03/10/22 01/09/24 04/03/22 08:00 mcg/dose blistr powdr for inhalation (Advair Diskus) lisinopril 20 mg tablet 20 mg PO QAM 03/10/22 01/09/24 04/04/22 04:30 omeprazole 40 mg capsule,delayed 40 mg PO BID 03/10/22 01/09/24 04/04/22 04:30 release rosuvastatin 10 mg tablet (Crestor) 10 mg PO HS 03/10/22 01/09/24 04/03/22 20:00 venlafaxine 37.5 mg 37.5 mg PO QAM 03/10/22 01/09/24 04/04/22 04:30 capsule,extended release 24 hr ibuprofen 600 mg tablet 600 mg PO QID PRN Pain 01/09/24 01/09/24 Unknown Past Medical History Medical History Chronic obstructive pulmonary disease well controlled w/ daily inhaler use Depression GERD (gastroesophageal reflux disease) History of pelvic mass benign- mass removed [facility] 2022 HTN (hypertension) Hx of gastroesophageal reflux (GERD) Hyperlipidemia Past Family History Family History Other No family history of adverse response to anesthesia Past Surgical History Surgical History History of cervical spinal surgery >20 yrs - discectomy History of esophagogastroduodenoscopy (EGD) History of lumbar surgery ~2008 Hx of arthroscopy of shoulder rt. Hx of colonoscopy Hx of hysterectomy Hx of inguinal hernia repair left Hx of laparoscopy benign- mass removed [facility] [place] 2022 Hx of salpingo-oophorectomy, bilateral done during lap procedure for removal of pelvic mass 08/2023 Hx of thumb surgery right- "trigger" Social History Smoking Status: Former smoker Do You Dip or Chew Tobacco: No Smoking End Date: quit 2017 Hx Alcohol Use: No Alcohol type: beer alcohol intake frequency: holidays/special occasions only Hx Substance Use: No substance use type: does not use Testing Laboratory Results 12/27/23 WBC: 9.6 H/H: 11/35 PLATELETS: 284,000 SODIUM: 140 POTASSIUM: 4.4 CHLORIDE: 103 CO2: 25 BUN: 15 CREATININE: 0.7 GLUCOSE: 92 Electrocardiogram Date: 12/27/23 NSR, rate [address] abnormality Other Testing PET scan 06/13/23 Right adnexal mass with mild homogenous internal metabolic activity. New left lower lobe parahilar ill-defined pulmonary nodule with increased metabolism. Considerations include infectious, inflammatory or neoplastic etiology; metastatic disease is a consideration. Advise short interval follow-up diagnostic chest CT. Multiple subcentimeter pulmonary nodules are likely below the resolution of PET. Chest CTA 02/19/23 1. No pulmonary embolus is seen. 2. Fluid is noted in the esophagus with a moderate hiatal hernia. Abdomen pelvis CT 02/19/23 1. Moderate hiatal hernia is seen with prominent herniation of a loop of stomach. Physiologic obstruction cannot be excluded. 2. Prominent right adnexal mass. Correlation with prior imaging is recommended, if available. Otherwise MRI can be performed for further characterization.
--- OUTSIDE RECORDS SUMMARY | 2024-01-22 05:44 | External Medical Summary ---
Author Name Unknown Address Unknown Organization [id number] [address] [place] [id number] Laboratory Report Ordering Provider Test Date Status MERLE MILLER 12/27/2023 10:57:04 Final Observation Date Value Abnormality Reference (Units ) Status BUN 12/27/2023 10:57:04 15 6-20 (mg/dL) Final Creatinine 12/27/2023 10:57:04 0.7 0.5-1.0 (mg/dL) Final Glomerular filtration rate/1.73 sq M.predicted [Volume Rate/Area] in Serum, Plasma or Blood by Creatinine-based formula (CKD-EPI) 12/27/2023 10:57:04 >90 >=60 (mL/min) Final eGFR is calculated based on the CKD-EPI 2020 equation Sodium 12/27/2023 10:57:04 140 135-146 (m mol/L) Final Potassium 12/27/2023 10:57:04 4.4 3.5-5.1 (m mol/L) Final Cl 12/27/2023 10:57:04 103 98-107 (mm ol/L) Final CO2 12/27/2023 10:57:04 25 22-32 (mmo l/L) Final Anion gap 12/27/2023 10:57:04 12 7-15 (mmol /L) Final Glucose 12/27/2023 10:57:04 92 70-120 (mg /dL) Final Albumin 12/27/2023 10:57:04 4.5 3.8-5.0 (g /dL) Final AST (Aspartate aminotransferase) 12/27/2023 10:57:04 17 10-35 (U/L) Final Alk Phos 12/27/2023 10:57:04 82 35-130 (U/ L) Final Bilirubin, Total 12/27/2023 10:57:04 0.3 <=1 .2 (mg/dL) Final Calcium 12/27/2023 10:57:04 9.2 8.4-10.2 ( mg/dL) Final Protein 12/27/2023 10:57:04 7.3 6.0-8.3 (g /dL) Final ALT (Alanine aminotransferase) 12/27/2023 10:57:04 17 10-35 (U/L) Final [facility] [facility] [address]
--- OUTSIDE RECORDS SUMMARY | 2024-01-22 05:44 | External Medical Summary | Summary of Care ---
Author Name Unknown Organization [facility] Address [address] [address] Phone [phone] Care Team Providers Care Sed Special Education Teacher Name Role Phone Errol Baldwin MD Primary Care Provider [phone] Reason for Visit * Reason Comments Outpatient Testing Encounter Details Date Type Department Care Team (Late st Contact Info) Description 12/27/2023 11:50 AM EDT Laboratory Laboratory, [facility] [address] [address] [facility] [address] [place] [address] Ventral hernia without obstruction or gangrene Allergies Active Allergy Reactions Criticality Noted Date Comments Codeine Itching Low 04/04/2022 documented as of this encounter (statuses as of 12/27/2023) Medications Medication Sig Dispensed Refills Start Date End Date Status Venlafaxine HCl ER 75 MG Oral Capsule Extended Release 24 Hour (Effexor XR) Take 1 Capsule by mouth in the morning. Do not cut, crush or chew. 90 Capsule 3 03/28/2023 Active Rosuvastatin Calcium 10 MG Oral Tablet (Crestor) Take 1 Tablet by mouth in the morning. 90 Tablet 3 03/28/2023 Active Lisinopril 20 MG Oral Tablet (Prinivil)Indication s:HTN, goal below 140/90 TAKE 1 TABLET BY MOUTH IN THE MORNING 90 Tablet 3 05/01/2023 Active amLODIPine Besylate 10 MG Oral Tablet (Norvasc)Indications :HTN, goal below 140/90 TAKE 1 TABLET BY MOUTH IN THE MORNING 90 Tablet 3 06/28/2023 Active Venlafaxine HCl ER 37.5 MG Oral Capsule Extended Release 24 Hour (Effexor XR) TAKE 1 CAPSULE BY MOUTH IN THE MORNING. DO NOT CUT, CRUSH, OR CHEW. 90 Capsule 3 06/28/2023 Active Senna 8.6 MG Oral Tablet Take 1 Tablet by mouth in the morning. 30 Tablet 0 08/30/2023 Active Simethicone 80 MG Oral Tablet Chewable (Mylicon) Chew & swallow 1 Tablet by mouth every 6 hours as needed for Gas. 30 Tablet 0 08/30/2023 Active Omeprazole 40 MG Oral Capsule Delayed Release (PriLOSEC) Take 1 capsule by mouth twice daily 180 Capsule 1 09/13/2023 Active Fluticasone-Salmeter ol 250-50 MCG/ACT Inhalation Aerosol Powder Breath Activated (Advair Diskus)Indications:C OPD, severity to be determined (HCC) INHALE 1 DOSE BY MOUTH TWICE DAILY 180 Each 1 10/31/2023 Active documented as of this encounter (statuses as of 12/27/2023) Active Problems Problem Noted Date Diagnosed Date S/P BSO (bilateral salpingo-oophorectomy) 2022 Overview: 06/13/23 PET: 7.3 x 5.6 cm right adnexal soft tissue mass demonstrates heterogeneous internal metabolism, SUV 4.5 with a photopenic anterolateral cystic portion, suggesting ovarian origin. Ca 125: 14.8 CEA: 7.8 Ca 19-9: History of prior hysterectomy 08/30/2023: Robotic assisted laparoscopic bilateral salpingo-oophorectomy. BENIGN pathology. History of prior hysterectomy Obesity, Class II, BMI 35-39.9, isolated (see ac tual BMI) 03/28/2023 DDD (degenerative disc disease), cervical 2021 COPD, group A, by GOLD 2017 classification 05/19 Overview: Per COPD GOLD Classification Hiatal hernia 12/06/2018 Bipolar depression 09/14/2017 HTN, goal below 130/80 09/14/2017 Gastroesophageal reflux disease with esophagitis 09/14/2017 Dyslipidemia 09/14/2017 documented as of this encounter (statuses as of 12/27/2023) Resolved Problems Problem Noted Date Diagnosed Date Resolved Date Class 2 severe obesity due t o excess calories with serious comorbidity and body mass index (BMI) of 37.0 to 37.9 in adult 01/10/2023 Neck pain 12/16/2021 03/28/2023 History of tobacco abuse 11/02/2021 Screening for lipid disorders 11/02/2021 03/28/2023 Hot flashes 11/02/2021 11/02/2023 Body mass index (BMI) of 40. 0 to 44.9 in adult 04/24/2018 05/06/2021 Overview: Per Obesity protocol #1 - Reactive airway disease that is not asthma 09/14/2017 09/14/2017 COPD, moderate 09/14/2017 05/21/2020 Overview: Per COPD GOLD Classification Anxiety state 02/04/2014 09/14/2017 Overview: ICD-10 update of inactive term Dyslipidemia, goal LDL below 130 02/04/2014 09/14/2017 Major depressive disorder 02/04/2014 Overview: ICD-10 update of inactive term Inguinal hernia 02/04/2014 09/14/2017 Overview: Left sided, found on CT scan documented as of this encounter (statuses as of 12/27/2023) Immunizations Name Administration Dates Next Due Pneumococcal Polysaccharide PPV23 (Pneumovax) Season Influenza, Quad, PF, Adjuvanted, 65+ Yrs, IM (FLUAD) 05/17/2020 Seasonal Influenza, PF, 6 M & above, IM , (FluLaval or Fluzone) 07/05/2019,09/14/2017 TDAP (age 10 and older)(Boostrix) 02/04/2014 documented as of this encounter Social History Tobacco Use Types Packs/Day Years Used Date Smoking Tobacco: Former Cigarettes 1.5 45 0 02/06/1973 - 02/06/2018 Passive Smoke Exposure: Current Smokeless Tobacco: Never Comments:quit January 2018 Alcohol Use Standard Drinks/Week Comments Not Currently 0 (1 standard drink = 0.6 oz pur e alcohol) once a week PHQ-2 Answer Date Recorded PHQ-2 Score 0 05/01/2020 Hunger Vital Sign Answer Date Recorded Worried About Running Out of Food in the Last Ye ar Never true 05/01/2020 Ran Out of Food in the Last Year Never true 05/01/2020 Sex and Gender Information Value Date Recorded Sex Assigned at Female 04/08/2023 9:03 AM EDT Gender Identity Female 04/08/2023 9:03 AM EDT Sexual Orientation Straight 04/08/2023 9: 03 AM EDT Job Start Date Occupation Industry Not on file Not on file Not on file documented as of this encounter Plan of Treatment Upcoming Encounters Date Type Department Care Team (Late st Contact Info) Description 02/07/2024 9:45 AM EDT Office Visit General Surgery, [facility] [address] [place] [address] Arun Donato MD [address] [place] [address] Pending Results Name Type Priority Associated Diagnoses Date /Time CBC Lab Routine Ventral hernia without obstruction or gangrene 12/27/2023 10:57 AM EDT COMPREHENSIVE METABOLIC PANEL Lab Routine Ventral hernia without obstruction or gangrene 12/27/2023 10:57 AM EDT Scheduled Procedures Name Priority Associated Diagnoses Date/Ti me COLONOSCOPY FLEXIBLE PROXIMAL DIAGNOSTIC Recall History of colon polyps Health Maintenance Due Date Last Done Comments DXA Scan 1955 Alpha-1 Antitrypsin 1973 Hepatitis C Screening 1973 Zoster Vaccines (1 of 2) 2005 Pneumococcal Vaccine: 65+ Years (2 of 2 - PCV) 08/02/2020 08/02/2019 Mammogram 05/11/2022 05/11/2021, 04/13, 05/08/2020, Additional history exists COVID-19 Vaccine (1 - 2022- season) 2023 DTaP,Tdap,and Td Vaccines (2 - Td or Tdap) 02/05/2024 02/04/2014 Influenza Vaccine (FLU shot) (Season Ended) 2024 05/17/2020, 05/17/2020, 07/05/2019, Additional history exists GFR 08/07/2024 08/07/2023, 03/11, 02/16/2022, Additional history exists O2 ASSESSMENT COMPLETED IN PAST YEAR FOR COPD 08/30/2024 08/30/2023 Albumin/Creatinine Ratio 02/01/2025 02/01/2022, 02/09 Diabetes Screening 08/30/2026 08/30/2023, 10/07/2022, 03/27/2023, Additional history exists COLONOSCOPY-EVERY 5 YRS AGES 18-100 10/22/2026 10/22/2021, 10/22/2021, 04/09/2018, Additional history exists Lipid Panel 03/27/2028 03/27/2023, 01/10, 09/30/2017, Additional history exists Colonoscopy Discontinued 10/22/2021, 10/12, 04/09/2018, Additional history exists Colorectal Cancer Screening Discontinued Lung Cancer Screening Completed 06/13/2023 , 11/11/2021, 04/16/2018, Additional history exists Cologuard Discontinued Fecal Occult Blood Test Discontinued GARDASIL-HPV IMMUNIZATION SERIES Aged Out No longer eligible based on patient's age to complete this topic Hepatitis B Aged Out No longer eligi ble based on patient's age to complete this topic MENINGOCOCCAL (MENACTRA/MENVEO) Aged Out No longer eligible based on patient's age to complete this topic Sigmoidoscopy Discontinued documented as of this encounter Medical Devices Not on filedocumented as of this encounter Visit Diagnoses Diagnosis Ventral hernia without obstruction or gangrene Ventral hernia, unspecified, without mention of obstruction or gangrene documented in this encounter Advance Directives Latest Code Status on File Code Status Date Activated Date Inactivated Comments Full Code 08/30/2023 12:37 PM 08/30/2023 8:15 PM Th is order reflects the patients wishes and were consensually agreed upon. Question Answer Comments Discussion of Advance Directives occurred with: Not Discussed due to patient's condition Care Teams Sed Special Education Teacher Relationship Specialty Start Date End Date Errol Baldwin MD [address] [place] [address] PCP - General Family Medicine 09/14/17 documented as of this encounter
--- OUTSIDE RECORDS SUMMARY | 2024-01-22 05:44 | External Medical Summary | Summary of Care ---
Author Name Unknown Organization [facility] Address [address] [facility] [place] [address] Phone [phone] Care Team Providers Care Cardiology Specialist Name Role Phone Errol Baldwin MD Primary Care Provider [phone] Reason for Visit * Reason Comments Follow Up Left hernia, H and P Encounter Details Date Type Department Care Team (Late st Contact Info) Description 12/27/2023 10:30 AM EDT Office Visit General Surgery, [facility] [address] [place] [address] Arun Donato MD [address] [place] [address] Ventral hernia without obstruction or gangrene*; Pre-op examination Allergies Active Allergy Reactions Criticality Noted Date [...] Passive Smoke Exposure: Current Smokeless Tobacco: Never Tobacco Cessation:Counseling Given: Not Answered Comments:quit January 2018 Alcohol Use Standard Drinks/Week [...] on file documented as of this encounter Last Filed Vital Signs Vital Sign Reading Time Taken Comments Blood Pressure 133/63 12/27/2023 10:17 AM EDT Pulse 85 12/27/2023 10:17 AM EDT Temperature 36.7 C (98.1 F) 12/27/2023 10:17 AM E DT Respiratory Rate - - Oxygen Saturation 97% 12/27/2023 10:17 AM EDT Inhaled Oxygen Concentration - - Weight 94.1 kg (207 lb 8 oz) 12/27/2023 10:17 AM EDT Height - - Body Mass Index 36.76 11/16/2023 10:32 AM EST documented in this encounter Progress Notes * Arun Donato MD - 12/27/2023 10:22 AM EDT [facility] [address] [facility] [address] [place] [address] [facility] Patient returns to schedule open VHR; H&P remains as below: HPI.: Ciara Linares is a 68 year old female seen in consultation for Chief Complaint Patient presents with Follow Up Left hernia, H and P . They have had symptoms present for weeks duration. The symptoms did not started at work. Their painis dull and intermittent and is usually associated with lifting. The lump is reducible. The patienthas no symptoms of chronic constipation,chronic cough,difficulty urinating. The hernia is associated with a previous scar from a robotic left SO, upper left transverse incision. Past Medical History Past Medical History: Diagnosis Date Bipolar depression (HCC) 09/14/2017 Colitis 11/2010, 07/2013 COPD, moderate (HCC) 09/14/2017 Dyslipidemia 09/14/2017 Essential hypertension with goal blood pressure less than 140/90 09/14/2017 Gastroesophageal reflux disease with esophagitis 09/14/2017 Hiatal hernia 12/06/2018 HTN, goal below 140/90 03/07/2018 Kidney stone 02/2012 Lyme disease 02/2009 Obesity, Class II, BMI 35-39.9, isolated (see actual BMI) 03/28/2023 Reactive airway disease that is not asthma 09/14/2017 Wrist fracture 05/2008 Past Surgical History Past Surgical History: Procedure Laterality Date COLONOSCOPY, DIAGNOSTIC (RECTUM) 04/09/2018 poor prep, repeat 3 yrs/[facility] COLONOSCOPY, DIAGNOSTIC (RECTUM) 10/22/2021 benign adenomatous polyp, repeat 5 yrs / COLONOSCOPY FLEXIBLE PROXIMAL DIAGNOSTIC performed by Neto Reinoso MD at ENDOSCOPY [facility] EGD, FLEXIBLE, DIAGNOSTIC 04/09/2018 reflux esophagitis, hiatal hernia/[facility] EGD, FLEXIBLE, DIAGNOSTIC 01/30/2019 hiatal hernia, retained food/ESOPHAGOGASTRODUODENOSCOPY (EGD), FLEXIBLE, TRANSORAL, DIAGNOSTIC performed by Neto Reinoso MD at ENDOSCOPY [facility] EGD, FLEXIBLE, DIAGNOSTIC 10/22/2021 reflux esophagitis, hiatal hernia / ESOPHAGOGASTRODUODENOSCOPY (EGD), FLEXIBLE, TRANSORAL, DIAGNOSTIC performed by Neto Reinoso MD at ENDOSCOPY [facility] INFORMATION 05/2008 back surgery LAPAROSCOPY;RMV ADNEXAL STRUCT N/A 08/30/2023 ROBOTIC LAPAROSCOPIC OOPHORECTOMY AND OR SALPINGECTOMY performed by Dejon Mcfadden MDat OR [facility] [place] TOTAL ABDOM HYSTERECTOMY 1987 fibroids PROCEDURE - GENERAL Left 04/01/2022 Left inguinal hernia by Dr Carrie Michael REPAIR RUPTURED ROTATOR CUFF, ACUTE 01/5012 Rotator Repair Cuff,Acute TENDON SHEATH INCISION, FINGER Right 02/17/2021 TRIGGER FINGER RELEASE performed by Tomas Elmore MD at OR [facility] Medications: Current Outpatient Medications Medication Sig Dispense Refill Venlafaxine HCl ER 75 MG Oral Capsule Extended Release 24 Hour (Effexor XR) Take 1 Capsule by mouthin the morning. Do not cut, crush or chew. 90 Capsule 3 Rosuvastatin Calcium 10 MG Oral Tablet (Crestor) Take 1 Tablet by mouth in the morning. 90 Tablet 3 Lisinopril 20 MG Oral Tablet (Prinivil) TAKE 1 TABLET BY MOUTH IN THE MORNING 90 Tablet 3 amLODIPine Besylate 10 MG Oral Tablet (Norvasc) TAKE 1 TABLET BY MOUTH IN THE MORNING 90 Tablet 3 Venlafaxine HCl ER 37.5 MG Oral Capsule Extended Release 24 Hour (Effexor XR) TAKE 1 CAPSULE BY MOUTH IN THE MORNING. DO NOT CUT, CRUSH, OR CHEW. 90 Capsule 3 Senna 8.6 MG Oral Tablet Take 1 Tablet by mouth in the morning. 30 Tablet 0 Simethicone 80 MG Oral Tablet Chewable (Mylicon) Chew & swallow 1 Tablet by mouth every 6 hoursas needed for Gas. 30 Tablet 0 Omeprazole 40 MG Oral Capsule Delayed Release (PriLOSEC) Take 1 capsule by mouth twice daily 180 Capsule 1 Fluticasone-Salmeterol 250-50 MCG/ACT Inhalation Aerosol Powder Breath Activated (Advair Diskus) INHALE 1 DOSE BY MOUTH TWICE DAILY 180 Each 1 No current facility-administered medications for this visit. Allergies: Allergies as of 12/27/2023 - Reviewed 12/27/2023 Allergen Reaction Noted Codeine Itching 04/04/2022 Family History Family History Problem Relation Age of Onset Breast Cancer Cousin (Paternal) Social History Social History Socioeconomic History Marital status: Spouse name: Not on file Number of children: Not on file Years of education: Not on file Highest education level: Not on file Occupational History Occupation: [email or web address] Tobacco Use Smoking status: Former Current packs/day: 0.00 Average packs/day: 1.5 packs/day for 45.0 years (67.5 ttl pk-yrs) Types: Cigarettes Start date: 02/06/1973 Quit date: 02/06/2018 Years since quittin.8 Passive exposure: Current Smokeless tobacco: Never Tobacco comments: quit January 2018 Vaping Use Vaping Use: Never used Substance and Sexual Activity Alcohol use: Not Currently Comment: once a week Drug use: No Sexual activity: Not Currently Partners: Male control/protection: Surgical Comment: hysterectomy Other Topics Concern Not on file Social History Narrative Not on file Social Determinants of Health Financial Resource Strain: Not on file Food Insecurity: No Food Insecurity (05/01/2020) Hunger Vital Sign Worried About Running Out of Food in the Last Year: Never true Ran Out of Food in the Last Year: Never true Transportation Needs: Not on file Physical Activity: Not on file Stress: Not on file Social Connections: Not on file Intimate Partner Violence: Not on file Housing Stability: Not on file ROS: GEN: no weight loss, fever, fatigue HEENT: no changes in vision or hearing, no sinus problems, no sore throat, no hoarseness RESPIRATORY: no cough, wheezing, SOB or change in breathing CARDIOVASCULAR: no exertional chest pain, dyspnea, palpitations GI: no melena or hemetemesis, no change in bowel habits, no nausea or vomiting : no dysuria, hematuria, frequency MUSCULOSKELETAL: no change in joint pains, no new arthritis PSYCHIATRIC: no significant anxiety or depression, unchanged sleep pattern HEME: no bleeding tendency, no clotting tendency NEURO: no significant headache, no seizures , no tremors SKIN: no new rashes, no itching Physical Exam: Blood pressure 133/63, pulse 85, temperature 36.7 C (98.1 F), weight 94.1 kg (207 lb 8 oz), SpO2 97%, not currently . Constitutional: alert,healthy,well nourished Head: normocephalic,atraumatic Eyes: conjunctiva non-injected,sclera white,EOMI Ears: pinna normal shape and color Neck: supple,no JVD,trachea midline Lungs: clear to auscultation,breath sounds are equal and symmetric,no crepitus Heart: regular rate & rhythm,no murmur, gallops or rubs Abdomen: soft ,positive bowel sounds,non-tender; positive ventral/incisional hernia with upper lefttransverse incision, reducible 3 cm toward midline Extremities: no joint deformities, effusion, or inflammation,no edema,no skin discoloration Neuro: alert,gait normal,motor normal Skin: no obvious rashes or significant lesions,warm and dry with good turgor Imaging: EXAM US ABDOMEN LIMITED - 11/06/2023 4:17 pm HISTORY post surgical seroma TECHNIQUE Real-time ultrasound of the abdomen, with attention to the anterior abdominal wall superior to the left abdominal incision site COMPARISON None. FINDINGS There is a probable fat containing ventral hernia superior to the incision site, with a 17 mm abdominal wall defect identified. No fluid collection identified. IMPRESSION IMPRESSION As above. IMP: Ciara Linares is a 68 year old female with a ventral/incisional hernia which is currently symptomatic. For this reason, I have recommended that the patient consider a hernia repair. This could be performed in open or laparascopic approach. Laparascopic surgery is useful in with incisional hernias and complex ventral hernias with fewer wound/mesh problems and early return to normal activity. I discussed the surgery in detail and the complications related to the surgery and the anesthesia. Therisks of inherent to laparascopic surgery including seroma formation and the possibility of injuring the bowel or blood vessels were also discussed. Overall risks include, but are not limited to: recu rrence of the hernia, post-op and chronic pain, numbness, bleeding, wound problems and mesh infection requiring mesh removal. Patient understands these risks. Expected same day nature of surgery and postoperative recovery period reviewed. Activity restrictions postoperatively to include no heavy lifting or high impact activity for three to six weeks reviewed. All questions were answered to the patient's satisfaction and consent was signed. Conservative treatment with avoidance of heavy lifting or straining until after surgical repair was discussed. We also reviewed the signs and symptoms of incarceration/strangulationand the patient was instructed to go directly to the emergency room should this occur. PLAN: open LUQ ventral/incisional hernia repair likely with mesh at [facility]. Arun Donato MD 12/27/2023 10:22 AM documented in this encounter Nursing Notes * Omaira Houser LPN - 12/27/2023 10:48 AM EDT Patient scheduled at [facility] for ventral hernia repair with Dr Arun Donato. Date of Test: 01/22/2024 Medications reviewed. EKG obtained Labs: obtained Permit signed. Patient verbalizes understanding of pre- and post op instructions. Written instructions given for review at later date. Omaira Houser LPN 12/27/2023 * Mirtha Villanueva LPN - 12/27/2023 10:18 AM EDT Patient identified by name and date of . Chief Complaint Patient presents with Follow Up Left hernia, H and P Presents with , christian documented in this encounter Plan of Treatment Upcoming Encounters Date Type Department Care Team (Late st Contact Info) Description 02/07/2024 9:45 AM EDT Office Visit General Surgery, [facility] [address] [place] [address] Arun Donato MD [address] [place] [address] Scheduled Orders Name Type Priority Associated Diagnoses Orde r Schedule EKG EKG Routine Ventral hernia without obstruction or gangrene Expected: 12/27/2023 (Approximate), Expires: 01/25/2025 Scheduled Procedures Name Priority Associated Diagnoses Date/Ti me COLONOSCOPY FLEXIBLE PROXIMAL DIAGNOSTIC Recall History of colon polyps Health Maintenance Due Date Last Done Comments DXA Scan 1955 Alpha-1 Antitrypsin 1973 Hepatitis C Screening 1973 Zoster Vaccines (1 of 2) 2005 Pneumococcal Vaccine: 65+ Years (2 of 2 - PCV) 08/02/2020 08/02/2019 Mammogram 05/11/2022 05/11/2021, 0809/2020, 05/08/2020, Additional history exists COVID-19 Vaccine ( - 2022- season) 2023 DTaP,Tdap,and Td Vaccines (2 - Td or Tdap) 02/05/2024 02/04/2014 Influenza Vaccine (FLU shot) (Season Ended) 2024 05/17/2020, 05/17/2020, 07/05/2019, Additional history exists O2 ASSESSMENT COMPLETED IN PAST YEAR FOR COPD 08/30/2024 08/30/2023 GFR 12/26/2024 12/27/2023, 07/13, 03/27/2023, Additional history exists Albumin/Creatinine Ratio 02/01/2025 02/01/2022, 02/09 COLONOSCOPY-EVERY 5 YRS AGES 18-100 10/22/2026 10/22/2021, 10/22/2021, 04/09/2018, Additional history exists Diabetes Screening 12/26/2026 12/27/2023, 1 10/31/2022, 08/07/2023, Additional history exists Lipid Panel 03/27/2028 03/27/2023, [...] Not on filedocumented as of this encounter Results * COMPREHENSIVE METABOLIC PANEL (12/27/2023 10:57 AM EDT) BUN 15 6 - 20 mg/dL 12/27/2023 11:56 AM EDT [facility] Creatinine 0.7 0.5 - 1.0 mg/dL 12/27/2023 11:56 AM EDT [facility] Estimated Glomerular Filtration Rate >90 >=60 mL/min 12/27/2023 11:56 AM EDT [facility] Comment:eGFR is calculated b ased on the CKD-EPI 2020 equation Sodium 140 135 - 146 mmol/L 12/27/2023 11:56 AM EDT [facility] Potassium 4.4 3.5 - 5.1 mmol/L 12/27/2023 11:56 AM EDT [facility] Chloride 103 98 - 107 mmol/L 12/27/2023 11:56 AM EDT [facility] CO2 25 22 - 32 mmol/L 12/27/2023 11:56 AM EDT [facility] Anion Gap 12 7 - 15 mmol/L 12/27/2023 11:56 AM EDT [facility] Glucose 92 70 - 120 mg/dL 12/27/2023 11:56 AM EDT [facility] Albumin 4.5 3.8 - 5.0 g/dL 12/27/2023 11:56 AM EDT [facility] AST 17 10 - 35 U/L 12/27/2023 11:56 AM EDT [facility] Alkaline Phosphatase 82 35 - 130 U/L 12/27/2023 11:56 AM EDT [facility] Bilirubin, Total 0.3 <=1.2 mg/dL 12/27/2023 11:56 AM EDT [facility] Calcium 9.2 8.4 - 10.2 mg/dL 12/27/2023 11:56 AM EDT [facility] Protein 7.3 6.0 - 8.3 g/dL 12/27/2023 11:56 AM EDT [facility] ALT 17 10 - 35 U/L 12/27/2023 11:56 AM EDT [facility] Blood Venous blood specimen / Unknown Venipuncture / Unknown 12/27/2023 10:57 AM EDT 12/27/2023 10:57 AM EDT Arun Donato MD LAB BLOOD O RDERABLES [facility] [address] [place] [address] * (ABNORMAL) CBC (12/27/2023 10:57 AM EDT) WBC 9.63 4.00 - 10.80 K/uL 12/27/2023 11:32 AM EDT [facility] RBC 4.18 3.85 - 5.15 M/uL 12/27/2023 11:32 AM EDT [facility] HGB 11.1(L) 12.0 - 15.3 g/dL 12/27/2023 11:32 AM EDT [facility] HCT 35.1(L) 36.0 - 45.2 % 12/27/2023 11:32 AM EDT [facility] MCV 84.0 81.5 - 97.5 fL 12/27/2023 11:32 AM EDT [facility] MCH 26.6 27.0 - 34.0 pg 12/27/2023 11:32 AM EDT [facility] MCHC 31.6 32.0 - 36.0 g/dL 12/27/2023 11:32 AM EDT [facility] RDW 13.2 11.5 - 15.5 % 12/27/2023 11:32 AM EDT [facility] PLT 284 140 - 400 K/uL 12/27/2023 11:32 AM EDT [facility] MPV 10.7 6.6 - 11.1 fL 12/27/2023 11:32 AM EDT [facility] Blood Venous blood specimen / Unknown Venipuncture / Unknown 12/27/2023 10:57 AM EDT 12/27/2023 10:57 AM EDT Arun Donato MD LAB BLOOD O RDERABLES Performing Organization Address City/State/[facility] Co de Phone Number [facility] [address] [facility] [place] [address] documented in this encounter Visit Diagnoses Diagnosis Ventral hernia without obstruction or gangrene- Primary Ventral hernia, unspecified, without mention of obstruction or gangrene Pre-op examination Preoperative examination, unspecified documented in this encounter Advance Directives Latest Code Status on File Code Status Date Activated Date Inactivated Comments Full Code 08/30/2023 12:37 PM 08/30/2023 8:15 PM Th is order reflects the patients wishes and were consensually agreed upon. Question Answer Comments Discussion of Advance Directives occurred with: Not Discussed due to patient's condition Care Teams Cardiology Specialist Relationship Specialty Start Date End Date Errol Baldwin MD [address] [place] [address] PCP - General Family Medicine 09/14/17 documented as of this encounter
--- OUTSIDE RECORDS SUMMARY | 2024-01-22 05:44 | External Medical Summary ---
Author Name Unknown Address Unknown Organization [id number] [address] [place] [id number] Laboratory Report Ordering Provider Test Date Status MERLE MILLER 12/27/2023 10:57:04 Final Observation Date Value Abnormality Reference (Units ) Status WBC, Total 12/27/2023 10:57:04 9.63 4.00-10.8 0 (K/uL) Final RBC 12/27/2023 10:57:04 4.18 3.85-5.15 (M/uL) Final Hemoglobin 12/27/2023 10:57:04 11.1 Below low normal 12 .0-15.3 (g/dL) Final HCT 12/27/2023 10:57:04 35.1 Below low normal 36. 0-45.2 (%) Final MCV 12/27/2023 10:57:04 84.0 81.5-97.5 (fL) Final MCH 12/27/2023 10:57:04 26.6 27.0-34.0 (pg) Final MCHC 12/27/2023 10:57:04 31.6 32.0-36.0 (g/dL) Final RDW 12/27/2023 10:57:04 13.2 11.5-15.5 (%) Final Platelets 12/27/2023 10:57:04 284 140-400 (K /uL) Final MPV 12/27/2023 10:57:04 10.7 6.6-11.1 ( fL) Final Performing Location [facility] - [address] [place] [id number]
--- OUTSIDE RECORDS SUMMARY | 2024-01-22 05:44 | External Medical Summary | Summary of Care ---
Author Name Unknown Organization [facility] Address [address] [place] [address] Phone [phone] Care Team Providers Care Economic Research Analyst Name Role Phone Errol Baldwin MD Primary Care Provider [phone] Reason for Visit * Reason Onset Date Comments Health Maintenance 12/22/2023 Encounter Details Date Type Department Care Team (Late st Contact Info) Description 12/22/2023 Telephone Family Practice [facility] [address] [place] [address] Errol Baldwin MD [address] [place] [address] Health Maintenance Allergies Active Allergy Reactions Criticality Noted Date Comments Codeine Itching Low 04/04/2022 documented as of this encounter (statuses as of 12/22/2023) Medications Medication Sig Dispensed Refills Start Date [...] 03/28/2023 Active Lisinopril 20 MG Oral Tablet (Prinivil)Indicati ons:HTN, goal below 140/90 TAKE 1 TABLET BY MOUTH IN THE MORNING 90 Tablet 3 05/01/2023 Active amLODIPine Besylate 10 MG Oral Tablet (Norvasc)Indicatio ns:HTN, goal below 140/90 TAKE 1 TABLET BY [...] the morning. 30 Tablet 0 08/30/2023 Active Additional Information Patient not taking.Reported on 11/16/2023 Simethicone 80 MG Oral Tablet Chewable (Mylicon) Chew & swallow 1 Tablet by mouth every 6 hours as needed for Gas. 30 Tablet 0 08/30/2023 Active Omeprazole 40 MG Oral Capsule Delayed Release (PriLOSEC) Take 1 capsule by mouth twice daily 180 Capsule 1 09/13/2023 Active Fluticasone-Salmet naomi 250-50 MCG/ACT Inhalation Aerosol Powder Breath Activated (Advair Diskus)Indications :COPD, severity to be determined (HCC) INHALE 1 DOSE BY MOUTH TWICE DAILY 180 Each 1 10/31/2023 Active documented as of this encounter (statuses as of 12/22/2023) Active Problems Problem Noted Date Diagnosed Date [...] as of this encounter (statuses as of 12/22/2023) Resolved Problems Problem Noted Date Diagnosed Date [...] as of this encounter (statuses as of 12/22/2023) Immunizations Name Administration Dates Next Due Pneumococcal [...] on file documented as of this encounter Miscellaneous Notes * Telephone Encounter - Anna Marie Weinberg LPN - 12/22/2023 1:39 PM EDT Care Gaps Comprehensive Care Outreach Last Office/Telemedicine Visit: 11/03/2023 (in office), 10/12/2020 (telemedicine) Next Office Visit: Visit date not found Hemoglobin AIC Results: No results found for: "HEMOGLOBIN A1C" BP Readings from Last 1 Encounters: 11/16/23 127/60 Reviewed Health Maintenance below: Health Maintenance Topic Date Due DXA Scan Never done Alpha-1 Antitrypsin Never done Hepatitis C Screening Never done Zoster Vaccines (1 of 2) Never done Pneumococcal Vaccine: 65+ Years (2 of 2 - PCV) 08/02/2020 Mammogram 05/11/2022 COVID-19 Vaccine (1 - 2022- season) Never done DTaP,Tdap,and Td Vaccines (2 - Td or Tdap) 02/05/2024 Influenza Vaccine (FLU shot) (Season Ended) 2024 GFR 08/07/2024 Ov Dexa mamm Care Gap Outreach Action Taken: Left message documented in this encounter Plan of Treatment Upcoming Encounters Date Type Department Care Team (Late st Contact Info) Description 12/27/2023 10:30 AM EDT Office Visit General Surgery, [address] [place] [address] Arun Latham MD [address] [place] [address] Scheduled Procedures Name Priority Associated Diagnoses Date/Ti me COLONOSCOPY FLEXIBLE PROXIMAL DIAGNOSTIC Recall History of colon polyps Health Maintenance Due Date Last Done Comments DXA Scan 1955 Alpha-1 Antitrypsin 1973 Hepatitis C Screening 1973 Zoster Vaccines (1 of 2) 2005 Pneumococcal Vaccine: 65+ Years (2 of 2 - PCV) 08/02/2020 08/02/2019 Mammogram 05/11/2022 05/11/2021, 04/13, 05/08/2020, Additional history exists COVID-19 Vaccine ( - 2022- season) 2023 DTaP,Tdap,and Td Vaccines (2 - Td or Tdap) 02/05/2024 02/04/2014 Influenza Vaccine (FLU shot) (Season Ended) 2024 05/17/2020, 05/17/2020, 07/05/2019, Additional history exists GFR 08/07/2024 08/07/2023, 03/11, 02/16/2022, Additional history exists O2 ASSESSMENT COMPLETED IN PAST YEAR FOR COPD 08/30/2024 08/30/2023 Albumin/Creatinine Ratio 02/01/2025 02/01/2022, 02/09 Diabetes Screening 08/30/2026 08/30/2023, 1 10/07/2022, 03/27/2023, Additional history exists COLONOSCOPY-EVERY 5 YRS AGES 18-100 10/22/2026 10/22/2021, 10/22/2021, 04/09/2018, Additional history exists Lipid Panel 03/27/2028 03/27/2023, 01/10, 09/30/2017, Additional history exists Colonoscopy Discontinued 10/22/2021, 10/12, 04/09/2018, Additional history exists Colorectal Cancer Screening Discontinued LUNG CANCER SCREENING - USE SMARTSET 61076 Completed 06/13/2023, 11/11/2021, 04/16/2018, Additional history exists Cologuard Discontinued [...] Not on filedocumented as of this encounter Advance Directives Latest Code Status on File Code Status Date Activated Date Inactivated Comments Full Code 08/30/2023 12:37 PM 08/30/2023 8:15 PM Th is order reflects the patients wishes and were consensually agreed upon. Question Answer Comments Discussion of Advance Directives occurred with: Not Discussed due to patient's condition Care Teams Economic Research Analyst Relationship Specialty Start Date End Date Errol Baldwin MD [address] [place] [address] PCP - General Family Medicine 09/14/17 documented as of this encounter
--- OUTSIDE RECORDS SUMMARY | 2024-01-22 05:45 | External Medical Summary | Summary of Care ---
Author Name Unknown Organization [facility] Address [address] [facility] [place] [address] Phone [phone] Care Team Providers Care Librarian Assistant Name Role Phone Errol Baldwin MD Primary Care Provider [phone] Reason for Visit * Reason Comments eRx-Medication Refill Encounter Details Date Type Department Care Team (Late st Contact Info) Description 10/30/2023 Refill Family Practice [facility] [address] [facility] [place] [address] Gino Henry, DO [address] [place] [address] COPD, severity to be determined (HCC) Allergies Active Allergy Reactions Criticality Noted Date Comments Codeine Itching Low 04/04/2022 documented as of this encounter (statuses as of 10/31/2023) Medications Medication Sig Dispensed Refills Start Date [...] 03/28/2023 Active Lisinopril 20 MG Oral Tablet (Prinivil)Indic ations:HTN, goal below 140/90 TAKE 1 TABLET BY MOUTH IN THE MORNING 90 Tablet 3 05/01/2023 Active Famotidine 20 MG Oral Tablet (Pepcid)Indicat ions:Large hiatal hernia Take 1 Tablet by mouth in the morning and 1 Tablet before bedtime. 180 Tablet 3 06/05/2023 Active Additional Information Patient not taking.Informant: Patient, Reported on 08/30/2023 amLODIPine Besylate 10 MG Oral Tablet (Norvasc)Indica tions:HTN, goal below 140/90 TAKE 1 TABLET BY [...] twice daily 180 Capsule 1 09/13/2023 Active Fluticasone-[place] meterol 250-50 MCG/ACT Inhalation Aerosol Powder Breath Activated (Advair Diskus)Indicati ons:COPD, severity to be determined (HCC) INHALE 1 DOSE BY MOUTH TWICE DAILY 180 Each 1 10/31/2023 Active Fluticasone-[place] meterol 250-50 MCG/ACT Inhalation Aerosol Powder Breath Activated (Advair Diskus)Indicati ons:COPD, severity to be determined (HCC) INHALE 1 DOSE BY MOUTH TWICE DAILY 180 Each 2 10/26/2022 4 Discontinued documented as of this encounter (statuses as of 10/31/2023) Active Problems Problem Noted Date Diagnosed Date [...] 03/28/2023 DDD (degenerative disc disease), cervical 2021 Hot flashes 11/02/2021 COPD, group A, by GOLD 2017 classification 05/19 Overview: Per COPD GOLD Classification Hiatal hernia 12/06/2018 Bipolar depression 09/14/2017 HTN, goal below 130/80 09/14/2017 Gastroesophageal reflux disease with esophagitis 09/14/2017 Dyslipidemia 09/14/2017 documented as of this encounter (statuses as of 10/31/2023) Resolved Problems Problem Noted Date Diagnosed Date Resolved Date Class 2 severe obesity due t o excess calories with serious comorbidity and body mass index (BMI) of 37.0 to 37.9 in adult 01/10/2023 Neck pain 12/16/2021 03/28/2023 History of tobacco abuse 11/02/2021 Screening for lipid disorders 11/02/2021 03/28/2023 Body mass index (BMI) of 40. 0 [...] as of this encounter (statuses as of 10/31/2023) Immunizations Name Administration Dates Next Due Pneumococcal [...] 9:03 AM EDT Sexual Orientation Straight 04/08/2023 9 :03 AM EDT Job Start Date Occupation Industry Not on file Not on file Not on file documented as of this encounter Miscellaneous Notes * Telephone Encounter - Trino Hahn RPh - 10/31/2023 12:51 PM EST Signed Prescriptions: Disp Refills Fluticasone-Salmeterol 250-50 MCG/ACT Inha*180 Ea*1 Sig: INHALE 1 DOSE BY MOUTH TWICE DAILYAuthorizing Provider: Nicol HENRY User: TRINO HAHN documented in this encounter Plan of Treatment Scheduled Procedures Name Priority Associated Diagnoses Date/Ti me COLONOSCOPY FLEXIBLE PROXIMAL DIAGNOSTIC Recall History of colon polyps Health Maintenance Due Date Last Done Comments DXA Scan 1955 Alpha-1 Antitrypsin 1973 Hepatitis C Screening 1973 Zoster Vaccines (1 of 2) 2005 Pneumococcal Vaccine: 65+ Years (2 of 2 - PCV) 08/02/2020 08/02/2019 Depression Screening 05/01/2021 05/01/2020 Mammogram 05/11/2022 05/11/2021, 0809/2020, 05/08/2020, Additional history exists COVID-19 Vaccine ( - season) 2023 Influenza Vaccine (FLU shot) (#1) 2023 05/17/2020, 05/17/2020, 07/05/2019, Additional history exists DTaP,Tdap,and Td Vaccines (2 - Td or Tdap) 02/05/2024 02/04/2014 GFR 08/07/2024 08/07/2023, 03/11, 02/16/2022, Additional history [...] Discontinued LUNG CANCER SCREENING - USE SMARTSET 02428 Completed 06/13/2023, 11/11/2021, 04/16/2018, Additional history exists [...] as of this encounter Visit Diagnoses Diagnosis COPD, severity to be determined (HCC) Chronic airway obstruction, not elsewhere classified documented in this encounter Advance Directives Latest Code Status on File Code Status Date Activated Date Inactivated Comments Full Code 08/30/2023 12:37 PM 08/30/2023 8:15 PM Th is order reflects the patients wishes and were consensually agreed upon. Question Answer Comments Discussion of Advance Directives occurred with: Not Discussed due to patient's condition Care Teams Librarian Assistant Relationship Specialty Start Date End Date Errol Baldwin MD [address] [place] [address] PCP - General Family Medicine 09/14/17 documented as of this encounter
--- OUTSIDE RECORDS SUMMARY | 2024-01-22 05:45 | External Medical Summary | Summary of Care ---
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] Procedures LAPAROSCOPY;RMV ADNEXAL STRUCT ROBOTIC LAPAROSCOPIC OOPHORECTOMY AND OR SALPINGECTOMY Referral ID Status Reason Start Date Expiration Date Visits Re quested Visits Authorized [id number] Encounter Details Date Type Department Care Team (Latest Contact Info) Description 08/30/2023 8:22 AM EST - 08/30/2023 3:14 PM EST Hospital Encounter [facility], OPERATING ROOM [facility], [facility]EL LOOMIS [address] [place] [address] Dejon Mcfadden MD [address] [place] [address] Discharge Disposition: Home - Self Care Allergies Active Allergy Reactions Criticality Noted Date Comments Codeine Itching Low 04/04/2022 documented as of this encounter (statuses as of 08/31/2023) Medications Medication Sig Dispensed Refills Start Date End Date Status Fluticasone-Salm eterol 250-50 MCG/ACT Inhalation Aerosol Powder Breath Activated (Advair Diskus)Indicatio ns:COPD, severity to be determined (HCC) INHALE 1 DOSE BY MOUTH TWICE DAILY 180 Each 2 10/26/2022 Active Omeprazole 40 MG Oral Capsule Delayed Release (PriLOSEC) Take 1 Capsule by mouth in the morning and 1 Capsule before bedtime. 180 Capsule 1 03/13/2023 Active Venlafaxine HCl ER 75 MG Oral Capsule Extended Release 24 Hour (Effexor XR) Take 1 Capsule by mouth in the morning. Do not cut, crush or chew. 90 Capsule 3 03/28/2023 Active Rosuvastatin Calcium 10 MG Oral Tablet (Crestor) Take 1 Tablet by mouth in the morning. 90 Tablet 3 03/28/2023 Active Lisinopril 20 MG Oral Tablet (Prinivil)Indica tions:HTN, goal below 140/90 TAKE 1 TABLET BY MOUTH IN THE MORNING 90 Tablet 3 05/01/2023 Active Famotidine 20 MG Oral Tablet (Pepcid)Indicati ons:Large hiatal hernia Take 1 Tablet by mouth in the morning and 1 Tablet before bedtime. 180 Tablet 3 06/05/2023 Active Additional Information Patient not taking.Informant: Patient, Reported on 08/30/2023 amLODIPine Besylate 10 MG Oral Tablet (Norvasc)Indicat ions:HTN, goal below 140/90 TAKE 1 TABLET BY [...] for Gas. 30 Tablet 0 08/30/2023 Active oxyCODONE HCl 5 MG Oral Tablet (Oxy IR) Take 1 Tablet by mouth every 4 hours as needed for moderate or severe pain 30 Tablet 0 08/30/2023 Active OXcarbazepine 300 MG Oral Tablet (Trileptal) Take 1 tablet by mouth twice daily 60 Tablet 1 07/10/2023 3 Discontinue d(Medicatio n/Dose Changed) Senna 8.6 MG Oral Tablet Take 1 Tablet by mouth in the morning. 30 Tablet 0 08/30/2023 3 Discontinue d(Refill) Simethicone 80 MG Oral Tablet Chewable (Mylicon) Take 1 Tablet by mouth every 6 hours as needed for Gas. 30 Tablet 0 08/30/2023 3 Discontinue d(Refill) oxyCODONE HCl 5 MG Oral Tablet (Oxy IR) Take 1 Tablet by mouth every 4 hours as needed for Pain, Moderate or Pain, Severe. 30 Tablet 0 08/30/2023 3 Discontinue d(Refill) documented as of this encounter (statuses as of 08/31/2023) Active Problems Problem Noted Date Diagnosed Date Ovarian neoplasm 07/05/2023 Overview: 06/13/23 PET: 7.3 x 5.6 cm right adnexal soft tissue mass demonstrates heterogeneous internal metabolism, SUV 4.5 with a photopenic anterolateral cystic portion, suggesting ovarian origin. Ca 125: 14.8 CEA: 7.8 Ca 19-9: History of prior hysterectomy 08/30/2023: Robotic assisted laparoscopic bilateral salpingo-oophorectomy. Obesity, Class II, BMI 35-39.9, isolated (see ac tual BMI) 03/28/2023 DDD (degenerative disc disease), cervical 2021 Hot flashes 11/02/2021 COPD, group A, by GOLD 2017 classification 05/19 Overview: Per COPD GOLD Classification Hiatal hernia 12/06/2018 Bipolar depression 09/14/2017 HTN, goal below 130/80 09/14/2017 Gastroesophageal reflux disease with esophagitis 09/14/2017 Dyslipidemia 09/14/2017 documented as of this encounter (statuses as of 08/31/2023) Resolved Problems Problem Noted Date Diagnosed Date Resolved Date Class 2 severe obesity due t o excess calories with serious comorbidity and body mass index (BMI) of 37.0 to 37.9 in adult 01/10/2023 3 Neck pain 12/16/2021 03/28/2023 History of tobacco [...] as of this encounter (statuses as of 08/31/2023) Immunizations Name Administration Dates Next Due Pneumococcal Polysaccharide PPV23 (Pneumovax) Season Influenza, Quad, PF, Adjuvanted, 65+ Yrs, IM (FLUAD) 05/17/2020 Seasonal Influenza, PF, 6 M & above, IM , (FluLaval or Fluzone) 07/05/2019,09/14/2017 TDAP (age 10 and older)(Boostrix) 02/04/2014 documented as of this encounter Social History Tobacco Use Types Packs/Day Years Used Date Smoking Tobacco: Former Cigarettes 1.5 45 Q uit: 02/06/2018 Passive Smoke Exposure: Current Smokeless Tobacco: [...] Sign Reading Time Taken Comments Blood Pressure 97/65 08/30/2023 3:00 PM EST Pulse 77 08/30/2023 3:00 PM EST Temperature 36.8 C (98.2 F) 08/30/2023 9:06 AM ES T Respiratory Rate 18 08/30/2023 3:00 PM EST Oxygen Saturation 93% 08/30/2023 3:00 PM EST Inhaled Oxygen Concentration - - Weight 89.9 kg (198 lb 1.6 oz) 08/30/2023 8:31 AM EST Height 160 cm (5' 3") 08/30/2023 8:31 AM EST Body Mass Index 35.09 08/30/2023 8:31 AM EST documented in this encounter Discharge Instructions * Discharge Instr - AVS* Elzbieta Turcios PA-C - 08/30/2023 12:34 PM EST Discharge Date: 08/30/2023 Check your Patient Education Brochure for further information. You may call [phone] between the hours of 7:00 a.m. - 8:00 p.m. for the first 24 hours. After the initial 24 hours, please contact your physician. [facility] office phone number is [phone]. After 5:00 p.m. or on the weekend, call [phone] and ask for the physician pets and pet supplies salesperson. [facility] is available 24 hours a day at . The information below provides you with the instructions and the list of medications you need to betaking following discharge from the hospital. If you have any questions, please ask before leaving.Please carry this letter with you when you see your doctor in the clinic. If you have questions, you can reach us at the numbers above. Hospital Course: You were admitted on 08/30/2023 after a robotic assisted bilateral salpingo-oophorectomy. You recovered appropriately and were discharged on 08/30/2023 . Your Doctors during this admission: Dejon Mcfadden MD, PhD Diet: Start with clear liquids (jello, tea, apple juice), avoid dairy products (milk, cheese, pudding, ice cream) and fried, greasy foods. Progress to prescribed diet as tolerated. You may eat and drink normally after gynecologic surgery. You may have a decreased appetite for thefirst few days after surgery; eating small, frequent meals or bland, well-cooked, soft foods may help. If nausea should occur, have clear liquids only until soft foods can be tolerated.Then progress to a regular diet, as tolerated However, if you are not able to eat or drink anything or if vomiting develops, call your health care provider Activity: A responsible adult must be with the patient for 24 hours after surgery. Rest today and tomorrow, and then increase activity as tolerated. DO NOT drive, operate any appliances and/or machinery or sign legal documents for 24 hours. Control of Pain: 1. Syqs-img-reurbuf Tylenol 325 mg, take 2 tablets by mouth every 6 hours as needed for pain 2. Ibuprofen 600mg, take 1 tablet by mouth every 6 hours as needed 3. Oxycodone 5 mg, take 1-2 tablets by mouth every 4 hours as needed for moderate to severe pain For the best pain control, alternate Ibuprofen and Tylenol so that you are taking 1 medication every 3 hours (ex: If you take Tylenol at 12:00 PM, take Ibuprofen at 3:00 PM, and at 6:00 PM, you will be due for your next dose of Tylenol, etc). Use pain medications as needed, not by the clock. Other medications: 4. Simethicone 80 mg, take 1 tablet by mouth every 6 hours as needed for gas pain 5. Senokot 8.6 mg, take 1 tablet by mouth daily until having a normal bowel movement frequency These prescription were sent to your pharmacy of choice Warnings: Call your surgeon promptly in case of: A. Excessive bleeding B. Fever greater than 101 degrees F (38.3 degrees centigrade) C. Persistent nausea and vomiting D. Redness, swelling or pus-like drainage E. Pain that is not relieved by the medicine you were told to take Special Instructions: A. You may have vaginal bleeding that requires a pad. If your bleeding saturates more than 1 heavy pad per hour, please notify your physician. B. Maintain pelvic rest (nothing in the vagina - no douching, tampons, or sexual intercourse) and do not soak your bottom in any bodies of water (bathtub, swimming pool, ocean, ect.) for at least 6 weeks. C. No strenuous activity or heavy lifting (greater than 10 pounds) for 6 weeks. D. You may experience pain in your shoulders, which is common after laparoscopic procedures. This may be relieved with pain medication, walking, or pinq-nka-mzjjnqm simethicone. E. You may have vaginal discharge from the procedure that is brown, black, carrillo, or yellow. This isnormal after the procedure you had. If you notice a foul odor or develop a fever, please notify your physician. F. You have 5 abdominal incisions which were closed with suture and Dermabond (skin glue). The sutures and Dermabond will dissolve on their own. You may shower in 24 hours. Do not scrub incisions. Pat dry. Keep clean and dry. G. Please follow up with Dr. Mcfadden in 2-3 weeks for your first post operative exam as previouslyscheduled on 09/14/2023. Please call our office if you have any issues with this. [facility] office number [phone] More At Home Instructions: It is normal to feel tired for a day or two after surgery, especially if general anesthesia was used. If you have a major surgery, you may feel tired for longer. Taking a few short naps during the day or resting when you are tired may help. While rest is important, it is also important to walk around several times per day, starting on theday of surgery.You can walk outside, but remember, you have to walk back so pace yourself. You haverisk for DVT (blood clot in legs) for up to a month after major abdominal surgery, so you need to increase walking every day. 3. Following discharge, you can do gentle stretching exercise, but no strenuous exercise. 4. You can go up and down stairs but you must use the hand railing. Initially use both feet on eachstep, until comfortable with going up and down stairs. 5. You can't drive until you are off all narcotics for 1 full week and lien walk normally and firmlyapply the brake without pain. 6. You should shower daily or take a sponge bath. 7. You can ride in a car with a seat belt. 8. Please take all pain medication with food to prevent stomach irritation. 9. Please try to avoid constipation. Constipation can be made worse by narcotic pain medications. We recommend taking colace Senokot 1 tablet by mouth daily until normal bowel movement frequency upondischarge. If no results in 2 days, please add Miralax or Milk of Magnesia. Once the bowels begin to move, you may want to continue using a stool softener [Colace]) or a non-stimulant laxative (eg, MiraLAX/GlycoLax) on a daily basis to keep the stools soft. This treatment may be taken for as long as needed. If still no results, please contact our office for further instructions. If you are havingdiarrhea, please stop taking these agents. These agents are all available fvjr-kwz-bdfjubj and without a prescription. 10. You may experience pain in your shoulders, which is common after laparoscopic procedures. This may be relieved with pain medication, walking, or kgpj-pmb-jocqxwb simethicone. Date you may return to work or school: As previously discussed with Dr. Mcfadden See your primary care physician (Errol Baldwin MD) as regularly scheduled. Return appointment(s) have been scheduled with the following health care providers - this list includes only future [facility] appointments. You or your provider may have requested additional [facility] appointments that are being finalized. These will be forwarded to you later. If you do not receivea call about these appointments within one week of your discharge, please call . Appointments with non-[facility] healthcare providers may not be listed below. If you feel suicidal or homicidal, please call the crisis hotline at [phone] ([phone]). documented in this encounter Progress Notes * Elzbieta Turcios PA-C - 08/30/2023 12:34 PM EST [facility] [address] [facility] [address] OUTPATIENT SURGERY DISCHARGE SUMMARY NOTE Name: Ciara Linares Location: [place] [facility]/[place] Date: 08/30/2023 Time: 12:34 PM Surgery Date: 08/30/2023 Procedure: 1) exam under anesthesia 2) robotic assisted laparoscopic bilateral salpingo-oophorectomy, CPT code 05081 3) extensive lysis of adhesions, CPT code 06848 Surgeon: Surgeon(s): Dejon Mcfadden MD, PhD Karolina, JEISON Aguila Nikotah, PA-C Discharge Diagnosis: Ovarian neoplasm of uncertain behavior, history of prior hysterectomy, BMI of 37 After examination of this patient, I have determined she is ready for discharge to home when the patient meets criteria. Discharge instructions were given to the patient. Elzbieta Turcios PA-C Gynecologic Oncology 08/30/2023 documented in this encounter H&P Notes * Joycelyn Porras PA-C - 08/30/2023 9:28 AM EST HISTORY & PHYSICAL EXAMINATION - Gynecologic Oncology [facility] [id number] Name: Ciara Linares Location: [place] [facility]/[place] Date: 08/30/2023 Time: 9:28 AM CHIEF COMPLAINT: Scheduled Surgery HISTORY OF PRESENT ILLNESS: Ciara Linares is a 68 year old year old seen and examined. Patient presents today for scheduled robotic assisted bilateral salpingo-oophorectomy secondary to an ovarian neoplasm of unknown behavior. She has no specific concerns or complaints. She denies any change of medical history or medications since she was last seen in the office. Patient denies fevers, chills, chest pain, shortness of breath, abdominal pain, urinary symptoms, change in bowel habits, headache, vision change, lightheadedness, dizziness. Not taking anticoagulants Not taking beta gretel Patient Active Problem List Diagnosis Date Noted Ovarian neoplasm [D49.59] 07/05/2023 06/13/23 PET: 7.3 x 5.6 cm right adnexal soft tissue mass demonstrates heterogeneous internal metabolism, SUV 4.5with a photopenic anterolateral cystic portion, suggesting ovarian origin. Ca 125: 14.8 CEA: 7.8 Ca 19-9: History of prior hysterectomy 08/30/2023: Robotic assisted laparoscopic bilateral salpingo-oophorectomy. Obesity, Class II, BMI 35-39.9, isolated (see actual BMI) [E66.9] 03/28/2023 DDD (degenerative disc disease), cervical [M50.30] 12/16/2021 Hot flashes [R23.2] 11/02/2021 COPD, group A, by GOLD 2017 classification (HCC) [J44.9] 05/19/2020 Per COPD GOLD Classification Hiatal hernia [K44.9] 12/06/2018 Bipolar depression (HCC) [F31.9] 09/14/2017 HTN, goal below 130/80 [I10] 09/14/2017 Gastroesophageal reflux disease with esophagitis [K21.00] 09/14/2017 Dyslipidemia [E78.5] 09/14/2017 ROS: Pertinent positives per HPI All others negative OBSTETRIC HISTORY: OB History Para Term AB Living 4 1 1 3 SAB IAB Ectopic Multiple Live Births 3 # Outcome Date GA Lbr Zane/2nd Weight Sex Delivery Anes PTL Lv 4 SAB 3 SAB 2 SAB 1 Term PAST MEDICAL HISTORY: Past Medical History: Diagnosis Date Bipolar depression [...] is not asthma 09/14/2017 Wrist fracture 05/2008 PAST SURGICAL HISTORY: Past Surgical History: Procedure Laterality Date COLONOSCOPY, DIAGNOSTIC (RECTUM) 04/09/2018 poor prep, repeat 3 yrs/[facility] COLONOSCOPY, DIAGNOSTIC (RECTUM) 10/22/2021 benign adenomatous polyp, repeat 5 yrs / COLONOSCOPY FLEXIBLE PROXIMAL DIAGNOSTIC performed by Neto Reinoso MD at ENDOSCOPY [facility] EGD, FLEXIBLE, DIAGNOSTIC 04/09/2018 reflux esophagitis, hiatal hernia/[facility] EGD, FLEXIBLE, DIAGNOSTIC 01/30/2019 hiatal hernia, retained food/ESOPHAGOGASTRODUODENOSCOPY (EGD), FLEXIBLE, TRANSORAL, DIAGNOSTIC performed by Neto Reinoso MD at ENDOSCOPY [facility] EGD, FLEXIBLE, DIAGNOSTIC 10/22/2021 reflux esophagitis, hiatal hernia / ESOPHAGOGASTRODUODENOSCOPY (EGD), FLEXIBLE, TRANSORAL, DIAGNOSTIC performed by Neto Reinoso MD at ENDOSCOPY [facility] INFORMATION 05/2008 back surgery [place] TOTAL ABDOM HYSTERECTOMY 1987 fibroids PROCEDURE - GENERAL Left 04/01/2022 Left inguinal hernia by Dr Carrie Michael REPAIR RUPTURED ROTATOR CUFF, ACUTE 01/5012 Rotator Repair Cuff,Acute TENDON SHEATH INCISION, FINGER Right 02/17/2021 TRIGGER FINGER RELEASE performed by Tomas Elmore MD at OR [facility] FAMILY HISTORY: Family History Problem Relation Age of Onset Breast Cancer Cousin (Paternal) SOCIAL HISTORY: Social History Socioeconomic History Marital status: Spouse name: Not on file Number of children: Not on file Years of education: Not on file Highest education level: Not on file Occupational History 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 amLODIPine Besylate 10 MG Oral Tablet (Norvasc) TAKE 1 TABLET BY MOUTH IN THE MORNING 08/30/2023 Venlafaxine HCl ER 37.5 MG Oral Capsule Extended Release 24 Hour (Effexor XR) TAKE 1 CAPSULE BY MOUTH IN THE MORNING. DO NOT CUT, CRUSH, OR CHEW. 08/30/2023 Lisinopril 20 MG Oral Tablet (Prinivil) TAKE 1 TABLET BY MOUTH IN THE MORNING 08/30/2023 Rosuvastatin Calcium 10 MG Oral Tablet (Crestor) Take 1 Tablet by mouth in the morning. 08/29/2023 Venlafaxine HCl ER 75 MG Oral Capsule Extended Release 24 Hour (Effexor XR) Take 1 Capsule by mouthin the morning. Do not cut, crush or chew. 08/30/2023 Omeprazole 40 MG Oral Capsule Delayed Release (PriLOSEC) Take 1 Capsule by mouth in the morning and1 Capsule before bedtime. 08/30/2023 Fluticasone-Salmeterol 250-50 MCG/ACT Inhalation Aerosol Powder Breath Activated (Advair Diskus) INHALE 1 DOSE BY MOUTH TWICE DAILY 08/30/2023 Famotidine 20 MG Oral Tablet (Pepcid) Take 1 Tablet by mouth in the morning and 1 Tablet before bedtime. Patient not taking: Reported on 07/20/2023 Not Taking PHYSICAL EXAM: VITALS: BP: 123 mmHg/79 mmHg (08/30/23905) Pulse: 68 (08/30/23905) Temp: 36.78 C (08/30/23905) Resp: 20 (08/30/23905) SpO2: 96 % (08/30/23905) General: well-developed, well-nourished, no acute distress Cardiac: regular rate and rhythm, no murmurs, rubs, or gallops Lungs: Clear to auscultation bilaterally Labs: Results for orders placed or performed during the hospital encounter of 08/30/23 GLUCOSE METER, POINT OF CARE Result Value Ref Range Glucose Meter 99 70 - 120 mg/dL Imaging: No new imaging IMPRESSION: Ciara Linares is a 68 year old year old seen and examined. Patient presents today for scheduled robotic assisted bilateral salpingo-oophorectomy secondary to an ovarian neoplasm of unknown behavior. PLAN: - Proceed with scheduled surgery - Abx: 2g Ancef - IVF - DIANE/SCDs This patient's history, physical exam, assessment and plan of care were reviewed and discussed withDr. Lesa HUSTON, PhD. Joycelyn Porras PA-C 08/30/2023 9:30 AM documented in this encounter Nursing Notes * Valentina Baker RN - 08/30/2023 3:30 PM EST Dual Licensed Skin Assessment completed by Patti baker RN and Kelly Aguirre Rn. The patient is/has a N/A Skin Breakdown (includes non blanchable erythema): Yes - Surgical/Procedural changes only. * Valentina Baker RN - 08/30/2023 1:45 PM EST Patient given inspiration spirometer and educated on how to use. Will continue to encourage use. * Coleen Boggs RN - 08/30/2023 9:29 AM EST Dual Licensed Skin Assessment completed by PATTIE Le and Gamal Aparicio RN. The patient is/has a N/A Skin Breakdown (includes non blanchable erythema): No * Jem Romero RN - 08/29/2023 11:37 AM EST NO ANESTHESIA EVAL REQUESTED PER CASE DOCUMENTATION. PREOP PATIENT INFORMATION AND EDUCATION: MEDICATION INSTRUCTIONS: The day of surgery/procedure, you may TAKE the following medications with a sip of water up to 2 hours prior to your arrival time: Oxcarbazepine Amlodipine Venlafaxine Famotidine Rosuvastatin Omeprazole Advair diskus AVOID/ DO NOT TAKE any medications the morning of surgery/procedure that are not listed above. STOP taking the following medications the noted number of days prior to surgery/procedure unless otherwise specified by your surgeon: Please follow surgeon's instructions regarding use of Aspirin, Coumadin, Plavix, Eliquis, and any other blood thinner including NSAIDs (non-steroidal anti- inflammatory drugs, eg, Advil, Ibuprofen, Motrin, Aleve, Naproxen); if you have any questions regarding your anticoagulation therapy please contact your surgeon's clinic. Please verify any proposed stoppage of your anticoagulation therapy with the agent's prescribing provider. 10 days prior to surgery/procedure Stop all Herbal supplements, Green Tea, Turmeric, Melatonin, CBD, THC, etc. Stop all Vitamins (including Vitamin E) 24 hours prior to surgery/procedure DO NOT consume any alcohol. DO NOT use medical marijuana. DO NOT smoke or use tobacco products of any kind after midnight prior to surgery. *Using any of these products may increase your risks of procedural complications. IF IT IS LESS THAN RECOMMENDED STOPPAGE TIME PLEASE STOP AT TIME OF NOTIFICATION. FASTING RECOMMENDATIONS: To reduce risk, it is important for all elective surgery patients to follow the specific fasting guidelines listed below. If you have received more stringent guidelines, please follow the MOST RESTRICTIVE guidelines that you have been provided. DO NOT EAT after midnight on the night prior to your surgery date. You are allowed to drink clear liquids up to two hours prior to arrival time to the hospital or surgery center. Examples of clear liquids include water, clear fruit juice without pulp, clear carbonated beverages, clear tea, and black coffee. Any drinks given by your surgical service take as directed. /pediatric patients who currently drink breast milk, infant formula, and non-human milk must not eat after midnight. These patients are allowed to drink only the liquids listed below up to two hours prior to arrival time to the hospital or surgery center: Ingested Material Minimum Fasting Time Clear liquid After midnight up to 2 hours prior to arrival time Breast milk Up to 4 hours prior to arrival time Infant formula Up to 6 hours prior to arrival time Non-human milk Up to 6 hours prior to arrival time THE DAY BEFORE YOUR SURGERY: -Drink plenty of fluid the day before your surgery. Contact your surgeon's office if you develop any of the following within 2 weeks of surgery: A cold Infection Fever Shingles Chicken pox or exposure to chicken pox Open areas such as scrapes, cuts, watts or other skin conditions Rashes GENERAL INSTRUCTIONS FOR PREPARING FOR SURGERY: BATHING INSTRUCTIONS: Bathe the evening prior to and the morning of surgery/procedure. Cleanse your body using ONLY anti-bacterial soap (eg, Dial, Safeguard) or any specific soap/cleansers and instructions provided by your surgeon (eg, Chlorhexidine). -You should brush your teeth the morning of surgery. Do NOT apply any lotions, powders, sprays, creams, oils, make-up, or deodorants after bathing. No hairspray, or nail albanian on fingers or toes. Day of surgery/procedure do not use tampons. If you wear contacts wear your eyeglasses if available otherwise bring your contact supplies with you to remove them prior to your surgery/procedure. If you wear glasses or dentures, please bring cases in which you can store them during your surgery. Please remove all piercings and jewelry and leave them at home. Wear comfortable and loose clothing. -Please leave all valuables at home. -If you use a CPAP and are staying overnight, please bring your mask and tubing with you to the hospital. -If you use an assistive mobility device (walker, cane, etc), please label it with your name and bring to hospital. -An escort pick up and delivery driver is required if you are being discharged the same day of the surgery. You should have a responsible adult over the age of 18 [address] you home. This person should be present with youin the hospital at the time of discharge and for the first 24 hours after the surgery to support your needs. If you are taking a taxi home, you must have your responsible republican accompany you in the taxi ride home at the time of discharge. OR times subject to change. Please check voicemail messages the day/evening before your surgery forany updates. PRE-OP: You will be taken to the pre-op area where your vital signs (blood pressure, pulse and temperature)will be taken. Any preparations that need to be done will be done there. When it is time for your surgery, you will be taken to the operating room. PARENTS OF PEDIATRIC PATIENTS WILL BE ALLOWED TO STAY WITH THEIR CHILDREN UNTIL THEY ARE ESCORTED TO THE OPERATING ROOM OUTPATIENT SURGERY PATIENTS: After your surgery you will be taken to the Same Day Surgery Unit when you are awake and will go home from there. You will get instructions about your home care before you leave. Arrange to have someone drive you home from the hospital. You may not drive for 24 hours after anesthesia. You must havean adult stay with you at home for 24 hours after your operation. This is very important. If you are not able to comply with these guidelines, your Short Stay surgery cannot be done. ADMISSION PATIENTS: After your stay in the recovery area, you will be taken to your room. Your family may visit you in your room based on current visitation policy. If a next day discharge is expected, it is important to make arrangements for a pick up and delivery driver to take you home. Please be aware our visitation policies are subject to change Professionals, attendants, caregivers or family members are allowable visitors for patients with intellectual, developmental or cognitive disabilities, communication barriers or behavioral concerns. Because patients' and families' needs vary, they will be taken into account when applying visitation restrictions. [facility]: Contact # [phone] Directions to Surgical Suite in from the [place] Entrance The Surgical Waiting Room can be found in the Lobby of [facility]. Enter through Main Lobby Entrance and the Waiting Room is directly in front of you. Proceed to check in and give them your name. Directions to Surgical Suite from the East Entrance Enter the East entrance and follow the hallway to the J elevator. Take the J elevator up to Level 1. Continue down the long hallway to the main [place] Lobby. The Surgical Waiting Room will be on your Right. Proceed to check in and give them your Name. Directions to Surgical Suite from the Parking Garage Enter the [facility] lobby and proceed down the hines to the left. At the end of the hines, turn right. Continue down the long hallway to the main [place] Lobby. The Surgical Waiting Room will be on your Right. Proceed to check in and give them your Name. THANK YOU FOR CHOOSING [facility] Pre-operative chart review completed-instructions provided based on current medication list in [facility] Presurgery instructions sent to patient via [employer] message. documented in this encounter OR Notes * OR Surgeon - Dejon Mcfadden MD - 08/30/2023 6:22 AM EST OPERATIVE RECORD [address] [address] [place] [id number] 1955 SERVICE: GYNECOLOGY ONCOLOGY 08/30/2023 PRE-OP DIAGNOSIS: Ovarian neoplasm of uncertain behavior, history of prior hysterectomy, BMI of 37 POST-OP DIAGNOSIS: Same SURGEON: Dr. Dejon Mcfadden MD, PhD, FACOG, FACS ASSISTANTS: Elzbieta Turcios PA-C and Joycelyn Porras PA-C (no other qualified resident/assistant professor of german available). My Steam Power[employer] Supervisor(s) was/were necessary throughout the procedure(s) for assistance with retraction, uterine manipulation as well as closure of the surgical incision site(s). Attestation: I understand that section 1842 (b)(7)(D) of the Social Security Act generally prohibits Medicare physician fee schedule payment for the services of [id number] in teaching hospitals when qualified residents are available to furnish such services. I certify that the services for which payment is claimed were medically necessary, and that no qualified resident was available to perform the services. I further understand that these services are subject to post-payment review by the Medicare carrier. ANESTHESIA: General endotracheal anesthesia. 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 DRAINS: Urinary Steinberg catheter. FLUIDS: 1000 mL of crystalloid. URINE OUTPUT: 150 mL of clear urine at the end of the case. SPECIMEN: Right fallopian tube and ovary, left fallopian tube and ovary, left pelvic mass, pelvic washings COMPLICATIONS: None. CONDITION: Stable. DISPOSITION: PACU. INDICATIONS AND HISTORY: The patient is delightful 68-year-old with an ovarian neoplasm of uncertain behavior. She opted for definitive surgical management. DESCRIPTION OF OPERATION: The patient was taken to the operating room where she underwent general anesthesia without difficulty. A timeout and red rules were performed. She was then positioned in the dorsal supine position with legs in yellowfin stirrups. Care was taken not to place any undue tension on the hips knees or ankles. The patient was then tested in steep Trendelenburg position and the position was found to be adequate. An exam under anesthesia was performed revealing the findings as above. She was then prepped and draped in the usual sterile fashion. A Steinberg catheter was inserted transurethrally to drain the bladder. . Attention was then turned to the abdomen where a left upper quadrant incision was made with a scalpel approximately 2 fingerbreadths beneath the rib cage. The abdominal cavity was then entered using an Optiview port under direct visualization. The camera port was then placed above the umbilicus. 3 accessory ports were placed laterally under direct visualization. Careful attention was paid to avoid the inferior epigastric vessels. The robot was then docked into place. Laparoscopic instruments were then inserted and the surgery commenced at the console. Extensive laparoscopic lysis of adhesions had to occur to restore normal anatomy and be able to visualize the bilateral ovaries. Lysis of adhesions occurred for approximately 90 minutes. Pelvic washings were obtained and sent for cytology. The right round ligament was grasped, ligated, and transected with the use of cautery. The broad ligament was then opened posteriorly down the line of Toldt, entering the retroperitoneal space. Dissection continued into the retroperitoneal space and the paravesical space was developed. Once the ureter had been identified and noted to be well outside of the operative field, a window was made in the mesosalpinx beneath the infundibulopelvic ligament on the right side. The infundibulopelvic ligament was then ligated and transected . Once the ureter was again identified, the remainder of the attachment of the right fallopian tube and ovary to the pelvic sidewall was ligated. The specimen was placed in an Endo-Catch bag and removed from the patient's abdomen. It was sent for permanent pathology. Attention was then drawn to the patient's left side where the same dissection process was carried out. Once the left fallopian tube and ovary were freed from the pelvic sidewall, the specimen was placed in an Endo-Catch bag and removed from the patient's abdomen. It was sent for permanent pathology. A fibrotic mass within the left inguinal canal was resected. This mass was placed in an Endo-Catch bag and removed from the patient's abdomen. It was sent for permanent pathology. The pelvis was then copiously irrigated. Excellent hemostasis was noted. All instruments were removed from the vagina and the abdomen. The robot was then undocked. The robotic camera was used to visualize removal of all ports. All port sites were noted to be hemostatic. Pneumoperitoneum was allowed to escape the abdomen. The port sites were closed with a deep suture of Vicryl followed by Monocryl in a subcuticular fashion. Steri-Strips and Mastisol were applied to thesites followed by small bandages. The Steinberg catheter was then removed. The patient awoke from general anesthesia without difficulty after being placed back into the supine position. She then proceeded to the recovery room in stable condition. I was present for the entire procedure. Dejon Mcfadden MD, PhD, FACOG, FACS Chief, Gynecologic Oncology Director of Robotic Surgery for [facility] documented in this encounter Plan of Treatment Upcoming Encounters Date Type Department Care Team (Late st Contact Info) Description 09/14/2023 11:30 AM EST Office Visit Gynecology/Oncology, [place] [address] [place] [address] Dejon Mcfadden MD [address] [place] [address] Pending Results Name Type Priority Associated Diagnoses Date /Time CYTOLOGY Pathology Routine Neoplasm of uncertain behavior of ovary, unspecified laterality 08/30/2023 10:48 AM EST SURGICAL PATHOLOGY Pathology Routine Neoplasm of uncertain behavior of ovary, unspecified laterality 08/30/2023 11:15 AM EST Scheduled Orders Name Type Priority Associated Diagnoses Orde r Schedule CYTOLOGY Pathology Routine Neoplasm of uncertain behavior of ovary, unspecified laterality Release Upon Ordering for 1 Occurrences starting 08/30/2023, 1 completed SURGICAL PATHOLOGY Pathology Routine Neoplasm of uncertain behavior of ovary, unspecified laterality Release Upon Ordering for 1 Occurrences starting 08/30/2023, 1 completed Scheduled Procedures Name Priority Associated Diagnoses Date/Ti me COLONOSCOPY FLEXIBLE PROXIMAL DIAGNOSTIC Recall History of colon polyps Health Maintenance Due Date Last Done Comments DXA Scan 1955 COVID-19 Vaccine (#1) 1955 Alpha-1 Antitrypsin 1973 Hepatitis C Screening 1973 Zoster Vaccines (1 of 2) 2005 Pneumococcal Vaccine: 65+ Years (2 - PCV) 08/02/2020 08/02/2019 Depression Screening 05/01/2021 05/01/2020 Mammogram 05/11/2022 05/11/2021, 08/09/2020, 05/08/2020, Additional history exists Influenza Vaccine (FLU shot) (#1) 2023 05/17/2020, [...] Discontinued LUNG CANCER SCREENING - USE SMARTSET 85082 Completed 06/13/2023, 11/11/2021, 04/16/2018, Additional history exists [...] Not on filedocumented as of this encounter Procedures Procedure Name Priority Date/Time Associated Diagnosis Comments HC COMPATIBILITY ELECTRONIC CROSSMATCH STAT 08/30/2023 11:40 AM EST GLUCOSE METER, POINT OF CARE ZULMA 08/30/2023 9:20 AM EST documented in this encounter Results * PREPARE PACKED RED BLOOD CELLS (08/30/2023 11:40 AM EST) Unit Product Code [id number] [facility] BLOOD [facility] Unit Number [id number] LABO [facility] BLOOD B[facility] Unit ABO B [facility] BLOOD [facility] Unit Rh POS LABORATORY GM BLOOD BANK Unit Crossmatch Compatible [facility] BLOOD BANK Unit Status XM LABORATO RY [facility] BLOOD [facility] Unit Blood Type BPOS [facility] BLOOD [facility] Unit Expiration [id number] [facility] BLOOD BANK Unit Barcode 7300 LABORAT ORY [facility] BLOOD BANK 08/30/2023 11:4 0 AM EST Ismael Briscoe MD BLD BANK PRODUCT OR DERABLES [facility] BLOOD BANK [address] [place] [address] * GLUCOSE METER, POINT OF CARE (08/30/2023 9:20 AM EST) Glucose Meter 99 70 - 120 mg/dL 08/30/2023 9:25 AM EST [facility] [employer] [facility] Blood Whole blood specimen / Unknown 08/30/2023 9:20 AM EST 08/30/2023 9:25 AM EST Dejon Mcfadden MD LAB POINT OF CARE TEST DOCKED DEVICE UNSOLICITED RESULTS [facility] [address] [place] [address] documented in this encounter Visit Diagnoses Diagnosis Neoplasm of uncertain behavior of ovary, unspecified laterality Ovarian neoplasm Neoplasm of unspecified nature of other genitourinary organs documented in this encounter Administered Medications Inactive Administered Medications - up to 3 most recent administrations Medication Order MAR Action Action Date Dose Rate Site Acetaminophen (Tylenol) tab 975 mg 975 mg, Oral, PREOP, First dose on Mon08/30/23 at 0945, Last dose on Mon08/30/23 at 0945, For 1 dose, Maximum 4 g acetaminophen/day. Avoid in patients with severe hepatic impairment or severe active liver disease. Administer 60 minutes prior to OR., Pre-Op Given 08/30/2023 9:34 AM EST 975 mg cloNIDine (Duraclon) inj 100 mcg 100 mcg, IV Push, ONCE, On Mon08/30/23 at 1330, For 1 dose, Administer only postop in PACU, PACU Given 08/30/2023 1:02 PM EST 100 mcg fentaNYL (PF) inj 50 mcg 50 mcg, IV Push, Q5 MIN PRN Pain, Moderate, Starting on Mon08/30/23 at 1237, Until Mon08/30/23 at 2015, For 4 doses, Administer up to a total of 200 mcg. Administer only postop in PACU When given IV Push its recommended that the dose be given over 3 to 5 minutes., PACU Given 08/30/2023 1:08 PM EST 50 mcg Given 08/30/2023 12:50 PM EST 50 mcg Given 08/30/2023 12:45 PM EST 50 mcg hEParin inj 5,000 Units 5,000 Units, Subcutaneous, ONCALL, Starting on Mon08/30/23 at 0904, Until Mon08/30/23 at 0933, For 1 dose, Pre-Op Given 08/30/2023 9:33 AM EST 5,000 Units Abdomen Right Lower isolyte-S pH 7.4 infusion Intravenous, at 130 mL/hr, KVO --- For Periop use. Plasma-LYTE 148, isolyte-S, and isolyte-S pH 7.4 are considered equivalent - including for MAR barcode scanning., CONTINUOUS, Starting on Mon08/30/23 at 0945, Until Mon08/30/23 at 1744, Pre-Op Restarted 08/30/2023 12:24 PM EST Continue from Pre-Op 08/30/2023 10:12 AM EST 13 0 mL/hr New Bag 08/30/2023 9:45 AM EST 130 mL/hr oxyCODONE (Oxy IR) tab 10 mg 10 mg, Oral, Q4H PRN Pain, Severe, Starting on Mon08/30/23 at 1236, Until Mon08/30/23 at 2015, Hold for somnolence or respiratory rate less than 10, Post-op Given 08/30/2023 2:57 PM EST 10 mg oxygen GAS Inhalation, OXYGEN, First dose on Mon08/30/23 at 1600, Until Discontinued, Device/Managed by: Low Flow Device, Goal SPO2 (%): Other, Lower-limit SPO2 (%): 88, Upper-limit SPO2 (%): 92, Starting Device: Nasal Cannula, Initial Flow Rate (LPM): 6 LPM for NC; 10 LPM for NRB mask, Lowest Support: Nasal Cannula: Flow 0-6 LPM. Titrate up/down by 1 LPM., Higher Support: Non-Rebreather (NRB) Mask: Minimum of 10 LPM. Titrate to maintain bag inflation., Titration Interval: Q2 minutes and as needed., Notify Provider: Other, Notify Provider [other]: If SpO2 less than 88%, notify provider immediately, If patient is on Room Air in the PACU and SpO2 is greater than 88% but less than 92% place patient on Nasal Cannula If patient is on Room Air in the PACU and SpO2 is less than 88% place patient on NRB Mask Oxygen On 08/30/2023 12:34 PM EST 2 L/min(Oxygen) oxygen GAS Inhalation, OXYGEN, First dose on Mon08/30/23 at 1600, Until Discontinued, Device/Managed by: Low Flow Device, Goal SPO2 (%): Other, Lower-limit SPO2 (%): 88, Upper-limit SPO2 (%): 92, Starting Device: Nasal Cannula, Initial Flow Rate (LPM): 6 LPM for NC; 10 LPM for NRB mask, Lowest Support: Nasal Cannula: Flow 0-6 LPM. Titrate up/down by 1 LPM., Higher Support: Non-Rebreather (NRB) Mask: Minimum of 10 LPM. Titrate to maintain bag inflation., Titration Interval: Q2 minutes and as needed., Notify Provider: Other, Notify Provider [other]: If SpO2 less than 88%, notify provider immediately, If patient is on Room Air in the PACU and SpO2 is greater than 88% but less than 92% place patient on Nasal Cannula If patient is on Room Air in the PACU and SpO2 is less than 88% place patient on NRB Mask documented in this encounter Active and Recently Administered Medications Times are shown in EST. Scheduled Medication Order 08/28/2023 08/29/2023 08/30/2023 Acetaminophen (Tylenol) tab 975 mg (COMPLETED) 975 mg, Oral, PREOP, First dose on Mon08/30/23 at 0945, Last dose on Mon08/30/23 at 0945, For 1 dose, Maximum 4 g acetaminophen/day. Avoid in patients with severe hepatic impairment or severe active liver disease. Administer 60 minutes prior to OR., Pre-Op 0934 (Given - Provid er: Coleen Boggs RN) ceFAZolin in dextrose (Ancef) ivpb 2 g (COMPLETED) 2 g, IV Piggyback, PREOP, 1 dose, First dose on Mon08/30/23 at 0945, Administer 60 minutes prior to skin incision, Pre-Op 1029 (Given - Provid er: Analilia Hester CRNA) cloNIDine (Duraclon) inj 100 mcg (COMPLETED) 100 mcg, IV Push, ONCE, On Mon08/30/23 at 1330, For 1 dose, Administer only postop in PACU, PACU 1302 (Given - Provid er: Valentina Baker RN) hEParin inj 5,000 Units (COMPLETED) 5,000 Units, Subcutaneous, ONCALL, Starting on Mon08/30/23 at 0904, Until Discontinued, For 1 dose, Pre-Op 0933 (Given - Provid er: Coleen Boggs RN) oxygen GAS Inhalation, OXYGEN, First dose on Mon08/30/23 at 1600, Until Discontinued, Device/Managed by: Low Flow Device, Goal SPO2 (%): Other, Lower-limit SPO2 (%): 88, Upper-limit SPO2 (%): 92, Starting Device: Nasal Cannula, Initial Flow Rate (LPM): 6 LPM for NC; 10 LPM for NRB mask, Lowest Support: Nasal Cannula: Flow 0-6 LPM. Titrate up/down by 1 LPM., Higher Support: Non-Rebreather (NRB) Mask: Minimum of 10 LPM. Titrate to maintain bag inflation., Titration Interval: Q2 minutes and as needed., Notify Provider: Other, Notify Provider [other]: If SpO2 less than 88%, notify provider immediately, If patient is on Room Air in the PACU and SpO2 is greater than 88% but less than 92% place patient on Nasal Cannula If patient is on Room Air in the PACU and SpO2 is less than 88% place patient on NRB Mask 1234 (Oxygen On - Pr ovider: Wen Aguirre RN)1500 (Oxygen Off - Provider: Valentina Baker RN) oxygen GAS Inhalation, OXYGEN, First dose on Mon08/30/23 at 1600, Until Discontinued, Device/Managed by: Low Flow Device, Goal SPO2 (%): Other, Lower-limit SPO2 (%): 88, Upper-limit SPO2 (%): 92, Starting Device: Nasal Cannula, Initial Flow Rate (LPM): 6 LPM for NC; 10 LPM for NRB mask, Lowest Support: Nasal Cannula: Flow 0-6 LPM. Titrate up/down by 1 LPM., Higher Support: Non-Rebreather (NRB) Mask: Minimum of 10 LPM. Titrate to maintain bag inflation., Titration Interval: Q2 minutes and as needed., Notify Provider: Other, Notify Provider [other]: If SpO2 less than 88%, notify provider immediately, If patient is on Room Air in the PACU and SpO2 is greater than 88% but less than 92% place patient on Nasal Cannula If patient is on Room Air in the PACU and SpO2 is less than 88% place patient on NRB Mask Continuous Medication Order 08/28/2023 08/29/2023 08/30/2023 isolyte-S pH 7.4 infusion Intravenous, at 130 mL/hr, KVO --- For Periop use. Plasma-LYTE 148, isolyte-S, and isolyte-S pH 7.4 are considered equivalent - including for MAR barcode scanning., CONTINUOUS, Starting on Mon08/30/23 at 0945, Until Mon08/30/23 at 1744, Pre-Op 0945 (New Bag - Prov ider: Coleen Boggs RN)1012 (Continue from Pre-Op - Provider: Analilia Hester CRNA)1223 (Paused - Provider: Analilia Hester CRNA - Comment: Switch to gravity)1224 (Restarted - Provider: Analilia Hester CRNA) isolyte-S pH 7.4 infusion Intravenous, at 140 mL/hr, For Periop use. Plasma-LYTE 148, isolyte-S, and isolyte-S pH 7.4 are considered equivalent - including for MAR barcode scanning., CONTINUOUS, Starting on Mon08/30/23 at 1315, Until Mon08/30/23 at 1714, Post-op 1315 (Due) PRN Medication Order 08/28/2023 08/29/2023 08/30/2023 Acetaminophen (Tylenol) tab 975 mg 975 mg, Oral, Q6H PRN Pain, Mild, Fever >38C(100.5F), Starting on 09/04/23 at 0000, Until Mon08/30/23 at 2014, Maximum 4 g acetaminophen/day. Avoid in patients with severe hepatic impairment or severe active liver disease. Begin after around the clock acetaminophen order discontinued (S+5)., Post-op bupivacaine HCl (Sensorcaine) 0.25 % (PF) inj (CANCELED) ONCE PRN INTRA PROCEDURE, Starting on Mon08/30/23 at 1213, Until Mon08/30/23 at 1227, Intra-Op 1213 (Given - Provid er: Elzbieta Turcios PA-C) fentaNYL (PF) inj 50 mcg 50 mcg, IV Push, Q5 MIN PRN Pain, Moderate, Starting on Mon08/30/23 at 1237, Until Mon08/30/23 at 2014, For 4 doses, Administer up to a total of 200 mcg. Administer only postop in PACU When given IV Push its recommended that the dose be given over 3 to 5 minutes., PACU 1245 (Given - Provid er: Wen Aguirre RN)1250 (Given - Provider: Wen Aguirre RN)1308 (Given - Provider: Valentina Baker RN) ondansetron (Zofran) inj 4 mg 4 mg, IV Push, Q6H PRN Nausea, Starting on Mon08/30/23 at 1235, Until Mon08/30/23 at 2014, Post-op Oxidized Cellulose (SURGICEL powder) 3 gm package (CANCELED) ONCE PRN INTRA PROCEDURE, Starting on Mon08/30/23 at 1151, Until Mon08/30/23 at 1227, Intra-Op 1151 (Given - Provid er: Elzbieta Turcios PA-C) oxyCODONE (Oxy IR) tab 10 mg 10 mg, Oral, Q4H PRN Pain, Severe, Starting on Mon08/30/23 at 1236, Until Mon08/30/23 at 2014, Hold for somnolence or respiratory rate less than 10, Post-op 1457 (Given - Provid er: Valentina Baker RN) oxyCODONE (Oxy IR) tab 5 mg 5 mg, Oral, Q4H PRN Pain, Moderate, Starting on Mon08/30/23 at 1236, Until Mon08/30/23 at 2014, Hold for somnolence or respiratory rate less than 10, Post-op sterile water for irrigation irrigation (CANCELED) ONCE PRN INTRA PROCEDURE, Starting on Mon08/30/23 at 1151, Until Mon08/30/23 at 1227, Intra-Op 1151 (Given - Provid er: Elzbieta Turcios PA-C - Comment: PRN) documented in this encounter Advance Directives Latest Code Status on File Code Status Date Activated Date Inactivated Comments Full Code 08/30/2023 12:37 PM 08/30/2023 8:15 PM Th is order reflects the patients wishes and were consensually agreed upon. Question Answer Comments Discussion of Advance Directives occurred with: Not Discussed due to patient's condition Care Teams Roundsman Relationship Specialty Start Date End Date Errol Baldwin MD [address] [id number] PCP - General Family Medicine 09/14/17 documented as of this encounter
--- OUTSIDE RECORDS SUMMARY | 2024-01-22 05:45 | External Medical Summary | Summary of Care ---
Author Name Unknown Organization [facility] Address [address] [place] [address] Phone [phone] Care Team Providers Care Cement Car Dumper Name Role Phone Errol Baldwin MD Primary Care Provider [phone] [phone] Reason for Visit * Reason Comments Post-Op Here for 2 week post op visit. Encounter Details Date Type Department Care Team (Late st Contact Info) Description 09/14/2023 11:30 AM EST Office Visit Gynecology/Oncology, [facility] [address] [place] [address] Dejon Mcfadden MD [address] [place], [place] [id number] S/P BSO (bilateral salpingo-oophorectomy )* Allergies Active Allergy Reactions Criticality Noted Date Comments Codeine Itching Low 04/04/2022 documented as of this encounter (statuses as of 09/14/2023) Medications Medication Sig Dispensed Refills Start Date End Date Status Fluticasone-Salm eterol 250-50 MCG/ACT Inhalation Aerosol Powder Breath Activated (Advair Diskus)Indicatio ns:COPD, severity to be determined (HCC) INHALE 1 DOSE BY MOUTH TWICE DAILY 180 Each 2 10/26/2022 Active Venlafaxine HCl ER 75 MG Oral [...] twice daily 180 Capsule 1 09/13/2023 Active oxyCODONE HCl 5 MG Oral Tablet (Oxy IR) Take 1 Tablet by mouth every 4 hours as needed for moderate or severe pain 30 Tablet 0 08/30/2023 4 Discontinue d(End of Procedure) documented as of this encounter (statuses as of 09/14/2023) Active Problems Problem Noted Date Diagnosed Date [...] as of this encounter (statuses as of 09/14/2023) Resolved Problems Problem Noted Date Diagnosed Date [...] as of this encounter (statuses as of 09/14/2023) Immunizations Name Administration Dates Next Due Pneumococcal [...] Sign Reading Time Taken Comments Blood Pressure 118/68 09/14/2023 11:25 AM EST Pulse 72 09/14/2023 11:25 AM EST Temperature - - Respiratory Rate 20 09/14/2023 11:2 5 AM EST Oxygen Saturation - - Inhaled Oxygen Concentration - - Weight 89.3 kg (196 lb 12.8 oz) 024 11:25 AM EST Height 160 cm (5' 3") 09/14/2023 11:25 AM EST Body Mass Index 34.86 09/14/2023 11:25 AM EST documented in this encounter Progress Notes * Elzbieta Turcios PA-C - 09/14/2023 11:30 AM EST CC: Post Operative Appointment HPI: Ciara Vijay 68 year old female status post surgical management for a benign ovarian neoplasm. On 08/30/2023 the patient underwent a robotic assisted laparoscopic bilateral salpingo-oophorectomy (history of prior hysterectomy). Final apthology benign. The patient will require no additional treatment FINAL PATHOLOGY: A. Ovary and fallopian tube, left, salpingo-oophorectomy: Ovary with benign adenofibroma Chronic salpingitis B. Pelvic mesh, left, excision: Synthetic mesh with unremarkable attached fibroadipose tissue C. 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 Returns for first post-op visit with no complaints. Patient reports no problems. Bowel and bladder function have normalized. Denies fevers or chills. Denies any problems with wound. Denies any vaginal bleeding or discharge. Denies lower extremity swelling. PE: BP 118/68 (BP Site: Right Arm, BP Position: Sitting, BP Cuff Size: Regular) | Pulse 72 | Resp 20 | Ht 1.6 m (5' 3") | Wt 89.3 kg (196 lb 12.8 oz) | BMI 34.86 kg/m | BSA 1.99 m General: Pleasant, well nourished, no acute distress, A&O x 3 Abdomen: Soft and nontender, negative masses, no organomegaly Incision: No induration or fluctuance or erythema. Lower extremities: non-tender and non-edematous Impression: - Healing well s/p surgery - Final pathology: benign - Tumor Board Recommendations: none Plan: 1. Post-op: - Healing well following surgery. - Post-operative instructions are reviewed. - Follow up in 1 year for routine well woman exam. Patient may follow up with referring provider/general gynecology, or our clinic for annual exams Elzbieta Turcios PA-C Gynecologic Oncology I performed a history and physical examination of the patient. My impression and plan are as documented above. I have discussed the patient's management with Elzbieta Turcios PA-C. Please refer tothe physician medical practice assistant's note for the documented findings and plan of care. Any edits that were required are reflected above. The patient is a delightful 68-year-old status post definitive surgical management for a benign ovarian neoplasm. The patient will not require further oncologic follow-up. She may choose to follow-upfor her well-woman exam in 1 year if she chooses. Dejon Mcfadden MD, PhD, FACOG, FACS Chief, Gynecologic Oncology Director of Robotic Surgery for [facility]'s [facility] [place] documented in this encounter Nursing Notes * Kasey Olivares I RN - 09/14/2023 11:20 AM EST Ciara arrived at clinic today for her 2 week post op visit. documented in this encounter Plan of Treatment [...] Depression Screening 05/01/2021 05/01/2020 Mammogram 05/11/2022 05/11/2021, 04/13, 05/08/2020, Additional history exists Influenza Vaccine (FLU [...] Discontinued LUNG CANCER SCREENING - USE SMARTSET 76823 Completed 06/13/2023, 11/11/2021, 04/16/2018, Additional history exists [...] as of this encounter Visit Diagnoses Diagnosis S/P BSO (bilateral salpingo-oophorectomy)- Primary Acquired absence of organ, genital organs documented in this encounter Advance Directives Latest Code Status on File Code Status Date Activated Date Inactivated Comments Full Code 08/30/2023 12:37 PM 08/30/2023 8:15 PM Th is order reflects the patients wishes and were consensually agreed upon. Question Answer Comments Discussion of Advance Directives occurred with: Not Discussed due to patient's condition Care Teams Cement Car Dumper Relationship Specialty Start Date End Date Errol Baldwin MD [address] [place] [address] PCP - General Family Medicine 09/14/17 documented as of this encounter
--- OUTSIDE RECORDS SUMMARY | 2024-01-22 05:45 | External Medical Summary ---
Author Name Unknown Address Unknown Organization : Laboratory Report Ordering Provider Test Date Status SANTOS TRIANA 08/30/2023 09:20:06 Final Observation Date Value Abnormality Reference (Units ) Status Glucose Point of Care 08/30/2023 09:20:06 99 70-120 (mg/dL) Final Performing Location
--- OUTSIDE RECORDS SUMMARY | 2024-01-22 05:45 | External Medical Summary | Summary of Care ---
Author Name Unknown Organization [facility] Address [address] [facility] [place] [address] Phone [phone] Care Team Providers Care Leg Assembler Name Role Phone Errol Baldwin MD Primary Care Provider [phone] Reason for Visit * Reason Comments eRx-Medication Refill Encounter Details Date Type Department Care Team (Late st Contact Info) Description 09/11/2023 Refill Gastroenterology, [facility] [address] [place] [address] Beverley Orantes CRNP [address] [place] [address] Allergies Active Allergy Reactions Criticality Noted Date Comments Codeine Itching Low 04/04/2022 documented as of this encounter (statuses as of 09/13/2023) Medications Medication Sig Dispensed Refills Start Date End Date Status Fluticasone-Israel meterol 250-50 MCG/ACT Inhalation Aerosol Powder [...] severe pain 30 Tablet 0 08/30/2023 Active Omeprazole 40 MG Oral Capsule Delayed Release (PriLOSEC) Take 1 capsule by mouth twice daily 180 Capsule 1 09/13/2023 Active Omeprazole 40 MG Oral Capsule Delayed Release (PriLOSEC) Take 1 Capsule by mouth in the morning and 1 Capsule before bedtime. 180 Capsule 1 03/13/2023 4 Discontinued documented as of this encounter (statuses as of 09/13/2023) Active Problems Problem Noted Date Diagnosed Date [...] as of this encounter (statuses as of 09/13/2023) Resolved Problems Problem Noted Date Diagnosed Date [...] as of this encounter (statuses as of 09/13/2023) Immunizations Name Administration Dates Next Due Pneumococcal Polysaccharide PPV23 (Pneumovax) 11 / Season Influenza, Quad, PF, Adjuvanted, 65+ Yrs, [...] encounter Miscellaneous Notes * Telephone Encounter - Beverley Orantes CRNP - 09/13/2023 11:38 AM ESTSigned Prescriptions: Disp Refills Omeprazole 40 MG Oral Capsule Delayed Rele*180 Ca*1 Sig: Take 1 capsule by mouth twice daily Authorizing Provider: BEVERLEY ORANTES * Telephone Encounter - Rosie Albert - 09/11/2023 7:43 PM ESTPending Prescriptions: Disp Refills Omeprazole 40 MG Oral Capsule Delayed Rele*180 Ca*0 Sig: Take 1 capsule by mouth twice daily * Telephone Encounter - Rosie Albert - 09/11/2023 7:41 PM EST Did you pend patient's preferred pharmacy and medication before forwarding?yes Pharmacy: [facility] [address] [place] [address] Pending Prescriptions: Disp Refills Omeprazole 40 MG Oral Capsule Delayed Rel*180 Ca*0 Sig: Take 1 capsule by mouth twice daily Last Visit: 10/03/2022 (in office), Visit date not found (telemedicine) Next Visit: Visit date not found If no future appointments scheduled, and last appointment is greater than a year ago, please schedule patient for a follow-up appointment Last date the medication was ordered: 03/24/2023 Is this request for a controlled substance?No Urine Drug Screen:No results found for this or any previous visit. Patient Phone Numbers Labs: Lab Results Component Value Date/Time CREAT 0.7 08/07/2023 10:00 AM CREAT 0.9 05/01/2020 04:19 PM POTASSIUM 4.2 08/07/2023 10:00 AM POTASSIUM 4.9 05/01/2020 04:19 PM TSH 3.30 02/10/2014 12:21 PM LDLCALC 90 03/27/2023 09:24 AM LDLCALC 140 (H) 09/30/2017 09:07 AM LDLDIRECT NOT APPLICABLE 09/30/2017 09:07 AM ALT 19 03/27/2023 09:24 AM ALT 32 02/10/2014 12:21 PM documented in this encounter Plan of Treatment Upcoming Encounters Date Type Department Care Team ([facility] st Contact Info) Description 09/14/2023 11:30 AM EST Office Visit Gynecology/Oncology, [facility] [address] [place] [address] Dejon Mcfadden MD [address] [place] [address] Scheduled Procedures Name Priority Associated Diagnoses Date/Ti [...] Discontinued LUNG CANCER SCREENING - USE SMARTSET 44836 Completed 06/13/2023, 11/11/2021, 04/16/2018, Additional history exists [...] Discussed due to patient's condition Care Teams Leg Assembler Relationship Specialty Start Date End Date Errol Baldwin MD [address] [facility] [place] [address] PCP - General Family Medicine 09/14/17 documented as of this encounter
--- OUTSIDE RECORDS SUMMARY | 2024-01-22 05:45 | External Medical Summary | Summary of Care ---
Author Name Unknown Organization [facility] Address [address] [facility] [place] [address] Phone [phone] Care Team Providers Care Stress Engineer Name Role Phone Errol Baldwin MD Primary Care Provider [phone] Reason for Visit * Reason Comments Other Pt here post surgery , states she had multiple incisions on abd. Pt has swelling around incision on L side, states it is the size of a football Encounter Details Date Type Department Care Team (Late st Contact Info) Description 11/03/2023 10:00 AM EST Office Visit Family Practice [facility] [address] [place] [address] Errol Baldwin MD [address] [place] [address] Skin mass* Allergies Active Allergy Reactions Criticality Noted Date Comments Codeine Itching Low 04/04/2022 documented as of this encounter (statuses as of 11/04/2023) Medications Medication Sig Dispensed Refills Start Date [...] Active amLODIPine Besylate 10 MG Oral Tablet (Norvasc)Indicat [...] twice daily 180 Capsule 1 09/13/2023 Active Fluticasone-Salm eterol 250-50 MCG/ACT Inhalation Aerosol Powder Breath Activated (Advair Diskus)Indicatio ns:COPD, severity to be determined (HCC) INHALE 1 DOSE BY MOUTH TWICE DAILY 180 Each 1 10/31/2023 Active Famotidine 20 MG Oral Tablet (Pepcid)Indicati ons:Large hiatal hernia Take 1 Tablet by mouth in the morning and 1 Tablet before bedtime. 180 Tablet 3 06/05/2023 11/03/2023 Discontinued documented as of this encounter (statuses as of 11/04/2023) Active Problems Problem Noted Date Diagnosed Date [...] as of this encounter (statuses as of 11/04/2023) Resolved Problems Problem Noted Date Diagnosed Date [...] as of this encounter (statuses as of 11/04/2023) Immunizations Name Administration Dates Next Due Pneumococcal [...] Sign Reading Time Taken Comments Blood Pressure 122/68 11/03/2023 10:17 AM EST Pulse 86 11/03/2023 10:17 AM EST Temperature 36.2 C (97.2 F) 11/03/2023 10:[address] Respiratory Rate 18 11/03/2023 10:17 AM EST Oxygen Saturation 98% 11/03/2023 10:17 AM EST Inhaled Oxygen Concentration - - Weight 91.6 kg (202 lb) 11/03/2023 10:17 AM EST Height 160 cm (5' 3") 11/03/2023 10:17 AM EST Body Mass Index 35.78 11/03/2023 10:17 AM EST documented in this encounter Progress Notes * Errol Baldwin MD - 11/04/2023 1:19 PM EST SUBJECTIVE: Ciara Linares is a 68 year old female. Chief Complaint Patient presents with Other Pt here post surgery, states she had multiple incisions on abd. Pt has swelling around incision on L side, states it is the size of a football HPI: Patient here with her concerned about a developing mass under her incision from her recent wood grinder surgery. She states the surgeon has no concerns. It is not painful. Patient Active Problem List Diagnosis Code Bipolar depression ([facility]) F31.9 HTN, goal below 130/80 I10 Gastroesophageal reflux disease with esophagitis K21.00 Dyslipidemia E78.5 Hiatal hernia K44.9 COPD, group A, by GOLD 2017 classification ([facility]) J44.9 DDD (degenerative disc disease), cervical M50.30 Obesity, Class II, BMI 35-39.9, isolated (see actual BMI) E66.9 S/P BSO (bilateral salpingo-oophorectomy) Z90.722 Current Outpatient Medications Medication Sig Dispense Refill [...] No current facility-administered medications for this visit. Allergy: Review of patient's allergies indicates: Allergen Reactions Codeine Itching OBJECTIVE: BP 122/68 | Pulse 86 | Temp 36.2 C (97.2 F) (Tympanic) | Resp 18 | Ht 1.6 m (5' 3") | Wt 91.6 kg (202 lb) | SpO2 98% | BMI 35.78 kg/m | BSA 2.02 m Gen: obese female, nad Abdomen: large mobile mass under the left side of her abdominal incision ASSESSMENT AND PLAN: (R22.9) Skin mass (primary encounter diagnosis) Plan: US ABDOMEN LIMITED -will further characterize with ultrasound and see what this is or if it can be corrected Follow up as needed. No other complaints were offered at this time. Errol Baldwin MD documented in this encounter Nursing Notes * Tiny Salazar LPN - 11/03/2023 10:17 AM EST The patient has been properly identified by confirmation of name and date of . Chief Complaint Patient presents with Other Pt here post surgery, states she had multiple incisions on abd. Pt has swelling around incision on L side, states it is the size of a football ] documented in this encounter Plan of Treatment Upcoming Encounters Date Type Department Care Team (Late st Contact Info) Description 11/06/2023 1:30 PM EST Imaging Radiology [address] [address] Scheduled Orders Name Type Priority Associated Diagnoses Orde r Schedule US ABDOMEN LIMITED Medical Imaging Routine Skin mass Expected: 11/03/2023, Expires: 12/01/2024 Scheduled Procedures Name Priority Associated Diagnoses Date/Ti [...] 05/08/2020, Additional history exists COVID-19 Vaccine ( season) 2023 Influenza Vaccine (FLU shot) (#1) [...] Discontinued LUNG CANCER SCREENING - USE SMARTSET [id number] Completed 06/13/2023, 11/11/2021, 04/16/2018, Additional history exists [...] as of this encounter Visit Diagnoses Diagnosis Skin mass- Primary Localized superficial swelling, mass, or lump documented in this encounter Advance Directives Latest Code Status on File Code Status Date Activated Date Inactivated Comments Full Code 08/30/2023 12:37 PM 08/30/2023 8:15 PM Th is order reflects the patients wishes and were consensually agreed upon. Question Answer Comments Discussion of Advance Directives occurred with: Not Discussed due to patient's condition Care Teams Stress Engineer Relationship Specialty Start Date End Date Errol Baldwin MD [address] [place] [address] PCP - General Family Medicine 09/14/17 documented as of this encounter
--- OUTSIDE RECORDS SUMMARY | 2024-01-22 05:45 | External Medical Summary | Summary of Care ---
Author Name Unknown Organization [facility] Address [address] [facility] [place] [address] Phone [phone] Care Team Providers Care Media Director Name Role Phone Errol Baldwin MD Primary Care Provider [phone] Reason for Visit * Reason Comments Outpatient Testing Encounter Details Date Type Department Care Team (Late st Contact Info) Description 08/07/2023 10:00 AM EST Laboratory Laboratory, [facility] [address] [facility] [address] [facility] [address] [place] [address] Ovarian neoplasm; Preop testing Allergies Active Allergy Reactions Criticality Noted Date Comments Acetaminophen-Codeine Rash 02/03/2021 documented as of this encounter (statuses as of 08/07/2023) Medications Medication Sig Dispensed Refills Start Date End Date Status Fluticasone-Salmet naomi 250-50 MCG/ACT Inhalation Aerosol Powder [...] 05/01/2023 Active Famotidine 20 MG Oral Tablet (Pepcid)Indication s:Large hiatal hernia Take 1 Tablet by mouth in the morning and 1 Tablet before bedtime. 180 Tablet 3 06/05/2023 Active Additional Information Patient not taking.Reported on 07/20/2023 amLODIPine Besylate 10 MG Oral Tablet (Norvasc)Indicatio ns:HTN, goal below 140/90 TAKE 1 TABLET BY MOUTH IN THE MORNING 90 Tablet 3 06/28/2023 Active Venlafaxine HCl ER 37.5 MG Oral Capsule Extended Release 24 Hour (Effexor XR) TAKE 1 CAPSULE BY MOUTH IN THE MORNING. DO NOT CUT, CRUSH, OR CHEW. 90 Capsule 3 06/28/2023 Active OXcarbazepine 300 MG Oral Tablet (Trileptal) Take 1 tablet by mouth twice daily 60 Tablet 1 07/10/2023 Active Additional Information Patient not taking.Reported on 07/20/2023 documented as of this encounter (statuses as of 08/07/2023) Active Problems Problem Noted Date Diagnosed Date Ovarian neoplasm 07/05/2023 Overview: 06/13/23 PET: 7.3 x 5.6 cm right adnexal soft tissue mass demonstrates heterogeneous internal metabolism, SUV 4.5 with a photopenic anterolateral cystic portion, suggesting ovarian origin. Ca 125: 14.8 CEA: 7.8 Ca 19-9: History of prior hysterectomy Obesity, Class II, [...] as of this encounter (statuses as of 08/07/2023) Resolved Problems Problem Noted Date Diagnosed Date [...] as of this encounter (statuses as of 08/07/2023) Immunizations Name Administration Dates Next Due Pneumococcal Polysaccharide PPV23 (Pneumovax) SEASONAL INFLUENZA, PF, 6 M & Above, IM , (FLULAVAL or FLUZONE) 07/05/2019,09/14/2017 Season Influenza, Quad, PF, Adjuvanted, 65+ Yrs, IM (FLUAD) 05/17/2020 TDAP (age 10 and older)(Boostrix) 02/04/2014 documented [...] Upcoming Encounters Date Type Department Care Team (Latest Contact Info) Description 08/30/2023 9:48 AM EST Hospital Encounter [facility], [facility]ATING [facility] [address] [place] [address] Dejon Mcfadden MD [address] [place] [address] 08/30/2023 9:48 AM EST - 08/30/2023 12:06 PM EST Surgery OR [facility], [facility] [address] [place] [address] Dejon Mcfadden MD [address] [place] [address] LAPAROSCOPIC OOPHORECTOMY AND OR SALPINGECTOMY 09/14/2023 11:30 AM EST Office Visit Gynecology/Oncolog [facility] [address] [place] [address] Dejon Mcfadden MD [address] [place] [address] Pending Results Name Type Priority Associated Diagnoses Date /Time CBC Lab Routine Ovarian neoplasm Preop testing 08/07/2023 10:00 AM EST BASIC METABOLIC PANEL Lab Routine Ovarian neoplasm Preop testing 08/07/2023 10:00 AM EST TYPE AND SCREEN Lab Routine Ovarian neoplasm Preop testing 08/07/2023 10:00 AM EST ABO/RH Lab Routine Ovarian neoplasm Preop testing 08/07/2023 10:05 AM EST Scheduled Procedures Name Priority Associated Diagnoses Date/Ti me LAPAROSCOPIC OOPHORECTOMY AND OR SALPINGECTOMY Neoplasm of uncertain behavior of ovary, unspecified laterality 08/30/2023 9:48 AM EST COLONOSCOPY FLEXIBLE PROXIMAL DIAGNOSTIC Recall History of [...] 2023 05/17/2020, 05/17/2020, 07/05/2019, Additional history exists O2 ASSESSMENT COMPLETED IN PAST YEAR FOR COPD 10/03/2023 10/03/2022 DTaP,Tdap,and Td Vaccines (2 - Td or Tdap) 02/05/2024 02/04/2014 GFR 03/27/2024 03/27/2023, 0604/2022, 02/01/2022, Additional history exists Albumin/Creatinine Ratio 02/01/2025 02/01/2022, 02/09 Diabetes Screening 03/27/2026 03/27/2023, 0 02/16/2022, 02/01/2022, Additional history exists COLONOSCOPY-EVERY 5 YRS AGES 18-100 10/22/2026 10/22/2021, 10/22/2021, 04/09/2018, Additional history exists Lipid Panel 03/27/2028 03/27/2023, 01/10, 09/30/2017, Additional history exists Colonoscopy Discontinued 10/22/2021, 10/12, 04/09/2018, Additional history exists Colorectal Cancer Screening Discontinued LUNG CANCER SCREENING - USE SMARTSET 55204 Completed 06/13/2023, 11/11/2021, 04/16/2018, Additional history exists [...] as of this encounter Visit Diagnoses Diagnosis Ovarian neoplasm Neoplasm of unspecified nature of other genitourinary organs Preop testing Preoperative examination, unspecified Neoplasm of uncertain behavior of ovary, unspecified laterality documented in this encounter Care Teams Media Director Relationship Specialty Start Date End Date Errol Baldwin MD [address] [facility] [place] [address] PCP - General Family Medicine 09/14/17 documented as of this encounter
--- OUTSIDE RECORDS SUMMARY | 2024-01-22 05:45 | External Medical Summary | Summary of Care ---
Author Name Unknown Organization [facility] Address [address] [address] Phone [phone] Care Team Providers Care Car Parker Name Role Phone Errol Baldwin MD Primary Care Provider [phone] Reason for Referral * Evaluate & Treat - Unlimited Visits (Within 10 days (routine)) - Authorized Specialty Diagnoses / Procedures Referred By Shahzad oliva Referred To Contact General Surgery Diagnoses Ventral hernia without obstruction or gangrene Errol Baldwin MD [address] [place] [address] Referral ID Status Reason Start Date Expiration Date Visits Requested Visits Authorized [id number] Authorized Specialty Services Required 11/09/2023 999 999 Question Answer Referral Priority Within 10 days (routine) Where should this appointment be scheduled? [facility] What condition is the patient being seen for? General Surgery Conditions What condition is the patient being seen for? Hernia (excluding Hiatal) Encounter Details Date Type Department Care Team (Late st Contact Info) Description 11/07/2023 Telephone Family Practice [facility] [address] [place] [address] Errol Baldwin MD [address] [place] [address] Allergies Active Allergy Reactions Criticality Noted Date Comments Codeine Itching Low 04/04/2022 documented as of this encounter (statuses as of 11/23/2023) Medications Medication Sig Dispensed Refills Start Date [...] as of this encounter (statuses as of 11/23/2023) Active Problems Problem Noted Date Diagnosed Date [...] as of this encounter (statuses as of 11/23/2023) Resolved Problems Problem Noted Date Diagnosed Date [...] as of this encounter (statuses as of 11/23/2023) Immunizations Name Administration Dates Next Due Pneumococcal [...] encounter Miscellaneous Notes * Telephone Encounter - Ayleen Polk OSA - 11/10/2023 7:53 AM EST Gen surg already reached out to pt * Telephone Encounter - Errol Baldwin MD - 11/09/2023 3:33 PM EST Please schedule with gen surg * Telephone Encounter - Kady Wellington LPN - 11/09/2023 3:00 PM EST Called pt, aware and ok with ref to gen surg. Please place ref and send to scheduling. * Telephone Encounter - Errol Baldwin MD - 11/07/2023 6:14 PM EST There is a ventral hernia above her incision. If she wants this repaired I can refer her to generalsurgery. documented in this encounter Plan of Treatment Upcoming Encounters Date Type Department Care Team (Late st Contact Info) Description 12/27/2023 10:30 AM EDT Office Visit General Surgery, [facility] [address] [facility] [place] [address] Arun Donato MD [address] [place] [address] Scheduled Procedures Name Priority Associated Diagnoses Date/Ti me COLONOSCOPY FLEXIBLE PROXIMAL DIAGNOSTIC Recall History of colon polyps Scheduled Referrals Name Type Priority Associated Diagnoses Orde r Schedule SURGERY REFERRAL OP Referral Within 10 da ys (routine) Ventral hernia without obstruction or gangrene Ordered: 11/09/2023 Health Maintenance Due Date Last Done Comments DXA Scan 1955 Alpha-1 Antitrypsin 1973 Hepatitis C Screening 1973 Zoster Vaccines (1 of 2) 2005 Pneumococcal Vaccine: 65+ Years (2 of 2 - PCV) 08/02/2020 08/02/2019 Depression Screening 05/01/2021 05/01/2020 Mammogram 05/11/2022 05/11/2021, 08/09/2020, 05/08/2020, Additional history exists COVID-19 Vaccine ( - 2022- season) 2023 Influenza Vaccine (FLU shot) (#1) [...] Discontinued LUNG CANCER SCREENING - USE SMARTSET 09223 Completed 06/13/2023, 11/11/2021, 04/16/2018, Additional history exists [...] Discussed due to patient's condition Care Teams Car Parker Relationship Specialty Start Date End Date Errol Baldwin MD [address] [address] [address] PCP - General Family Medicine 09/14/17 documented as of this encounter
--- OUTSIDE RECORDS SUMMARY | 2024-01-22 05:45 | External Medical Summary | Summary of Care ---
Author Name Unknown Organization [facility] Address [address] [address] Phone [phone] Care Team Providers Care Knockdown Worker Name Role Phone Errol Baldwin MD Primary Care Provider [phone] [phone] Reason for Visit * Reason Comments NEW PATIENT Needs hernia repair, pt had surgery - removal of mass on right side * Evaluate & Treat - Unlimited Visits (Within 10 days (routine)) - Authorized Specialty Diagnoses / Procedures Referred By Shahzad oliva Referred To Contact General Surgery Diagnoses Ventral hernia without obstruction or gangrene Errol Baldwin MD [address] [place] [address] Referral ID Status Reason Start Date Expiration Date Visits Requested Visits Authorized [id number] Authorized Specialty Services Required 11/09/[phone] Encounter Details Date Type Department Care Team (Late st Contact Info) Description 11/16/2023 10:45 AM EST Office Visit General Surgery, [facility] [address] [place] [address] Arun Donato MD [address] [place] [address] Ventral hernia without obstruction or gangrene* Allergies Active Allergy Reactions Criticality Noted Date Comments Codeine Itching Low 04/04/2022 documented as of this encounter (statuses as of 11/16/2023) Medications Medication Sig Dispensed Refills Start Date [...] as of this encounter (statuses as of 11/16/2023) Active Problems Problem Noted Date Diagnosed Date [...] as of this encounter (statuses as of 11/16/2023) Resolved Problems Problem Noted Date Diagnosed Date [...] as of this encounter (statuses as of 11/16/2023) Immunizations Name Administration Dates Next Due Pneumococcal [...] Sign Reading Time Taken Comments Blood Pressure 127/60 11/16/2023 10:32 AM EST Pulse 80 11/16/2023 10:32 AM EST Temperature 36.8 C (98.2 F) 11/16/2023 1 0:32 AM EST Respiratory Rate - - Oxygen Saturation 94% 11/16/2023 10: 32 AM EST Inhaled Oxygen Concentration - - Weight 92.9 kg (204 lb 12.8 oz) 024 10:32 AM EST Height 160 cm (5' 3") 11/16/2023 10:32 AM EST per pt Body Mass Index 36.28 11/16/2023 10:32 AM EST documented in this encounter Progress Notes * Arun Donato MD - 11/16/2023 10:48 AM EST [facility] [address] [place] [address] [facility] HPI.: Ciara Linares is a 68 year old female seen in consultation for Chief Complaint Patient presents with NEW PATIENT Needs hernia repair, pt had surgery - removal of mass on right side . They have had symptoms present for [...] DIAGNOSTIC (RECTUM) 04/09/2018 poor prep, repeat 3 yrs/[facility] COLONOSCOPY, DIAGNOSTIC (RECTUM) 10/22/2021 benign adenomatous polyp, repeat 5 yrs / COLONOSCOPY FLEXIBLE PROXIMAL DIAGNOSTIC performed by Neto Reinoso MD at ENDOSCOPY [facility] EGD, FLEXIBLE, DIAGNOSTIC 04/09/2018 reflux esophagitis, hiatal hernia/[facility] EGD, FLEXIBLE, DIAGNOSTIC 01/30/2019 hiatal hernia, retained food/ESOPHAGOGASTRODUODENOSCOPY (EGD), FLEXIBLE, TRANSORAL, DIAGNOSTIC performed by Nteo Reinoso MD at ENDOSCOPY [facility] EGD, FLEXIBLE, DIAGNOSTIC 10/22/2021 reflux esophagitis, hiatal hernia / ESOPHAGOGASTRODUODENOSCOPY (EGD), FLEXIBLE, TRANSORAL, DIAGNOSTIC performed by Neto Reinoso MD at ENDOSCOPY [facility] INFORMATION 05/2008 back surgery LAPAROSCOPY;RMV ADNEXAL STRUCT N/A 08/30/2023 ROBOTIC LAPAROSCOPIC OOPHORECTOMY AND OR SALPINGECTOMY performed by Dejon Mcfadden MDat OR [facility] [place] TOTAL ABDOM HYSTERECTOMY 1987 fibroids PROCEDURE - GENERAL Left 04/01/2022 Left inguinal hernia by Dr Carrie Michael REPAIR RUPTURED ROTATOR CUFF, ACUTE 01/5012 Rotator Repair Cuff,Acute TENDON SHEATH INCISION, FINGER Right 02/17/2021 TRIGGER FINGER RELEASE performed by Tomas Elmore MD at OR [facility] Medications: Current Outpatient Medications Medication Sig Dispense [...] CUT, CRUSH, OR CHEW. 90 Capsule 3 Simethicone 80 MG Oral Tablet Chewable (Mylicon) Chew & swallow 1 Tablet by mouth every 6 hoursas needed for Gas. 30 Tablet 0 Omeprazole 40 MG Oral Capsule Delayed Release (PriLOSEC) Take 1 capsule by mouth twice daily 180 Capsule 1 Fluticasone-Salmeterol 250-50 MCG/ACT Inhalation Aerosol Powder Breath Activated (Advair Diskus) INHALE 1 DOSE BY MOUTH TWICE DAILY 180 Each 1 Senna 8.6 MG Oral Tablet Take 1 Tablet by mouth in the morning. (Patient not taking: Reported on 11/16/2023) 30 Tablet 0 No current facility-administered medications for this visit. Allergies: Allergies as of 11/16/2023 - Reviewed 11/16/2023 Allergen Reaction Noted Codeine Itching 04/04/2022 Family History Family History Problem Relation Age of Onset Breast Cancer Cousin (Paternal) Social History Social History Socioeconomic History Marital status: Spouse name: Not on file Number of children: Not on file Years of education: Not on file Highest education level: Not on file Occupational History Occupation: [employer] Tobacco Use Smoking status: Former Current packs/day: 0.00 Average packs/day: 1.5 packs/day for 45.0 years (67.5 ttl pk-yrs) Types: Cigarettes Start date: 02/06/1973 Quit date: 02/06/2018 Years since quittin.7 Passive exposure: Current Smokeless tobacco: Never Tobacco [...] rashes, no itching Physical Exam: Blood pressure 127/60, pulse 80, temperature 36.8 C (98.2 F), height 1.6 m (5' 3"), weight 92.9kg (204 lb 12.8 oz), SpO2 94%, not currently . Constitutional: alert,healthy,well nourished Head: normocephalic,atraumatic Eyes: conjunctiva non-injected,sclera white,EOMI Ears: pinna normal shape and color Neck: supple,no JVD,trachea midline Lungs: clear to auscultation,breath sounds are equal and symmetric,no crepitus Heart: regular rate & rhythm,no murmur, gallops or rubs Abdomen: soft ,positive bowel sounds,non-tender; positive ventral/incisional hernia with upper lefttransverse incision, reducible 2cm toward midline Extremities: no joint deformities, effusion, [...] emergency room should this occur. PLAN: open ventral/incisional hernia repair likely with mesh at [facility] in January. Arun Donato MD 11/16/2023 10:48 AM documented in this encounter Nursing Notes * Mirtha Villanueva LPN - 11/16/2023 10:34 AM EST Patient identified by name and date of . Chief Complaint Patient presents with NEW PATIENT Needs hernia repair, pt had surgery - removal of mass on right side documented in this encounter Plan of Treatment Upcoming Encounters Date Type Department Care Team (Late st Contact Info) Description 12/27/2023 10:30 AM EDT Office Visit General Surgery, [facility] [address] [place] [address] Arun Donato MD [address] [place] [address] Scheduled Procedures Name Priority Associated Diagnoses Date/Ti [...] Discontinued LUNG CANCER SCREENING - USE SMARTSET 41414 Completed 06/13/2023, 11/11/2021, 04/16/2018, Additional history exists [...] Discussed due to patient's condition Care Teams Knockdown Worker Relationship Specialty Start Date End Date Errol Baldwin MD [address] [address] [address] PCP - General Family Medicine 09/14/17 documented as of this encounter
--- OUTSIDE RECORDS SUMMARY | 2024-01-22 05:45 | External Medical Summary ---
Author Name Unknown Address Unknown Organization [id number]:LABORATORY [facility] LOOD BANK - [address] [place] [address] Laboratory Report Ordering Provider Test Date Status ANITA DE SANTIAGO 08/07/2023 10:00:28 Final Observation Date Value Abnormality Reference (Units ) Status ABO 08/07/2023 10:00:28 B Final RH 08/07/2023 10:00:28 Positive Final RED BLOOD CELL ANTIBODY SCREEN 08/07/2023 10:00:28 Negative Final SPECIMEN EXPIRATION DATE 08/07/2023 10:00:28 09/02/2023 23:59 Final Performing Location LABORATORY [facility] BLOOD BANK - [address] [place] [id number]
--- OUTSIDE RECORDS SUMMARY | 2024-01-22 05:45 | External Medical Summary ---
Author Name Unknown Address Unknown Organization [id number]:[facility]ATORY [facility] - [address] [place] [id number] Laboratory Report Ordering Provider Test Date Status ANITA DE SANTIAGO 08/07/2023 10:00:28 Final Observation Date Value Abnormality Reference (Units ) Status BUN 08/07/2023 10:00:28 19 6-20 (mg/dL) Final Creatinine 08/07/2023 10:00:28 0.7 0.5-1.0 (mg/dL) Final Glomerular filtration rate/1.73 sq M.predicted [Volume Rate/Area] in Serum, Plasma or Blood by Creatinine-based formula (CKD-EPI) 08/07/2023 10:00:28 >90 >=60 (mL/min) Final eGFR is calculated based on the CKD-EPI 2020 equation SODIUM 08/07/2023 10:00:28 140 135-146 (m mol/L) Final Potassium 08/07/2023 10:00:28 4.2 3.5-5.1 (m mol/L) Final Cl 08/07/2023 10:00:28 102 98-107 (mm ol/L) Final CO2 08/07/2023 10:00:28 28 22-32 (mmo l/L) Final Anion gap 08/07/2023 10:00:28 10 7-15 (mmol /L) Final Glucose 08/07/2023 10:00:28 92 70-120 (mg /dL) Final Calcium 08/07/2023 10:00:28 9.8 8.4-10.2 ( mg/dL) Final Performing Location [facility]ATORY [facility] 0 - [address] [place] [address]
--- OUTSIDE RECORDS SUMMARY | 2024-01-22 05:45 | External Medical Summary ---
Author Name Unknown Address Unknown Organization [id number]:[facility]ATORY [facility] - [address] [place] [address] Laboratory Report Ordering Provider Test Date Status YOLANDA DE SANTIAGOY 08/07/2023 10:05:10 Final Observation Date Value Abnormality Reference (Units ) Status ABO 08/07/2023 10:05:10 B Final RH 08/07/2023 10:05:10 Positive Final Performing Location LAB[facility]ATORY [facility] BLOOD BANK - [address] [place] [address]
--- OUTSIDE RECORDS SUMMARY | 2024-01-22 05:45 | External Medical Summary ---
Author Name Unknown Address Unknown Organization [id number][facility] [address] [place] [address] Laboratory Report Ordering Provider Test Date Status ANITA DE SANTIAGO 08/07/2023 10:00:28 Final Observation Date Value Abnormality Reference (Units ) Status WBC, Total 08/07/2023 10:00:28 7.85 4.00-10.8 0 (K/uL) Final RBC 08/07/2023 10:00:28 4.50 3.85-5.15 (M/uL) Final Hemoglobin 08/07/2023 10:00:28 12.8 12.0-15.3 (g/dL) Final HCT 08/07/2023 10:00:28 39.6 36.0-45.2 (%) Final MCV 08/07/2023 10:00:28 88.0 81.5-97.5 (fL) Final MCH 08/07/2023 10:00:28 28.4 27.0-34.0 (pg) Final MCHC 08/07/2023 10:00:28 32.3 32.0-36.0 (g/dL) Final RDW 08/07/2023 10:00:28 12.6 11.5-15.5 (%) Final Platelets 08/07/2023 10:00:28 294 140-400 (K /uL) Final MPV 08/07/2023 10:00:28 10.2 6.6-11.1 ( fL) Final Performing Location LAB[facility]ATORY [facility] 0 - [address] [place] [address]
--- OUTSIDE RECORDS SUMMARY | 2024-01-22 05:45 | External Medical Summary | Summary of Care ---
Author Name Unknown Organization [facility] Address [address] [facility] [address] Phone [phone] Care Team Providers Care Vending Machine Technician Name Role Phone Errol Baldwin MD Primary Care Provider [phone] Reason for Visit * Reason Comments NEW PATIENT Needs hernia repair, pt had surgery - removal of mass on right side * Evaluate & Treat - Unlimited Visits (Within 10 days (routine)) - Authorized Specialty Diagnoses / Procedures Referred By Shahzad oliva Referred To Contact General Surgery Diagnoses Ventral hernia without obstruction or gangrene Errol Baldwin MD [address] [place] [address] Referral ID Status Reason Start Date Expiration Date Visits Requested Visits Authorized [id number] Authorized Specialty Services Required 11/09/[phone] Encounter Details Date Type Department Care Team (Late st Contact Info) Description 11/16/2023 10:45 AM EST Office Visit General Surgery, [facility] [address] [place] [address] Arun Donato MD [address] [place] [address] Ventral hernia without obstruction or gangrene* Allergies [...] Donato MD - 11/16/2023 10:48 AM EST [facility] [address] [place] [address] [facility] HPI.: Ciara Linares is a 68 [...] DIAGNOSTIC (RECTUM) 04/09/2018 poor prep, repeat 3 yrs/[facility] COLONOSCOPY, DIAGNOSTIC (RECTUM) 10/22/2021 benign adenomatous polyp, repeat 5 yrs / COLONOSCOPY FLEXIBLE PROXIMAL DIAGNOSTIC performed by Neto Reinoso MD at ENDOSCOPY [facility] EGD, FLEXIBLE, DIAGNOSTIC 04/09/2018 reflux esophagitis, hiatal hernia/[facility] EGD, FLEXIBLE, DIAGNOSTIC 01/30/2019 hiatal hernia, retained food/ESOPHAGOGASTRODUODENOSCOPY (EGD), FLEXIBLE, TRANSORAL, DIAGNOSTIC performed by Neto Reinoso MD at ENDOSCOPY [facility] EGD, FLEXIBLE, DIAGNOSTIC 10/22/2021 reflux esophagitis, hiatal hernia / ESOPHAGOGASTRODUODENOSCOPY (EGD), FLEXIBLE, TRANSORAL, DIAGNOSTIC performed by Neto Reinoso MD at ENDOSCOPY [facility] INFORMATION 05/2008 back surgery LAPAROSCOPY;RMV ADNEXAL STRUCT N/A 08/30/2023 ROBOTIC LAPAROSCOPIC OOPHORECTOMY AND OR SALPINGECTOMY performed by Dejon Mcfadden MDat OR [facility] [place] TOTAL ABDOM HYSTERECTOMY 1987 fibroids PROCEDURE - GENERAL Left 04/01/2022 Left inguinal hernia by Dr Carrie Michael REPAIR RUPTURED ROTATOR CUFF, ACUTE 01/5012 Rotator Repair Cuff,Acute TENDON SHEATH INCISION, FINGER Right 02/17/2021 TRIGGER FINGER RELEASE performed by Tomas Elmore MD at OR [facility] Medications: Current Outpatient Medications Medication Sig Dispense [...] level: Not on file Occupational History Occupation: [employer] Tobacco Use Smoking status: Former Current packs/day: [...] ventral/incisional hernia repair likely with mesh at [facility] in January. Arun Donato MD 11/16/2023 [...] 10:30 AM EDT Office Visit General Surgery, [facility] [address] [place] [address] Arun Donato MD [address] [place] [address] Scheduled Procedures Name Priority Associated Diagnoses Date/Ti [...] Discontinued LUNG CANCER SCREENING - USE SMARTSET 97720 Completed 06/13/2023, 11/11/2021, 04/16/2018, Additional history exists [...] Discussed due to patient's condition Care Teams Vending Machine Technician Relationship Specialty Start Date End Date Errol Baldwin MD [address] [place] [address] PCP - General Family Medicine 09/14/17 documented as of this encounter
[2024-01-22] MEDS: LACTATED RINGER'S 1,000 ML IV SCH (06:19)
[2024-01-22] MEDS ORDERED: ONDANSETRON INJ 2 MG/ML 2 ML VIAL ONE (06:33)
[2024-01-22] MEDS ORDERED: PROPOFOL IV EMULSION 10 MG/ML 20 ML VIAL IV ONE (06:33)
[2024-01-22] MEDS ORDERED: DEXAMETHASONE SOD INJ 4 MG/ML VIAL ONE (06:33)
[2024-01-22] MEDS ORDERED: ROCURONIUM BROMIDE 10 MG/ML 5 ML VIAL IV ONE ×2 (06:33→08:21)
[2024-01-22] MEDS ORDERED: SUGAMMADEX SODIUM 200 MG/2 ML VIAL IV ONE (06:34)
[2024-01-22] MEDS ORDERED: MIDAZOLAM HCL 1 MG/ML 2ML VIAL ONE (06:34)
[2024-01-22] MEDS ORDERED: fentaNYL citrate PF 100 MCG/2 ML VIAL ONE ×3 (06:34→08:41)
[2024-01-22] MEDS ORDERED: ONDANSETRON INJ 2 MG/ML 2 ML VIAL IV PRN ×2 (06:37→08:49)
[2024-01-22] MEDS ORDERED: ATROPINE SULFATE 0.1 MG/ML 10ML SYR IV PRN (06:37)
[2024-01-22] MEDS ORDERED: ePHEDrine sulfate 50 MG/ML AMP IV PRN (06:37)
[2024-01-22] MEDS ORDERED: SCOPOLAMINE 1 MG/72 HR TDSY PATCH TD ONE (06:47)
--- NOTE | 2024-01-22 07:16 | History & Physical Bridge Note ---
Date of Service January 22, 2024 History & Physical Bridge Note I have examined the patient, reviewed the History & Physical and in the interval since the performance of the History & Physical I have noted the following changes of clinical significance: no changes noted
[2024-01-22] MEDS: ceFAZolin 2000MG 2,000 MG/15 ML SYR IV SCH (07:19)
[2024-01-22] MEDS: BUPIVACAINE 0.5 % 5 MG/1 ML MPF 30ML VIAL ONE (08:31)
--- NOTE | 2024-01-22 08:45 | Operative Report ---
Post Operative Report Pre & Post Diagnosis Operation Date: 01/22/24 07:15 Pre-Op Diagnosis: Ventral Hernia without Obstruction and Gangrene Post-Op Diagnosis: Ventral Hernia without Obstruction and Gangrene, 5 cm I identified the patient and participated in the time-out.: Yes Procedure Operation Date: 01/22/24 07:15 Actual Procedures p Open Repair Ventral Hernia Repair with Mesh(Not Applicable) - Arun Donato MD Surgeon Arun Donato MD Subway Operator None Estimated Blood Loss 25 Findings Consistent with Post-Op Diagnosis Fluids 5 cm left upper quadrant ventral hernia incisional defect. It was a reducible and was initial hernia. Specimens Hernia sac Drains None Anesthesia Type General Complications None Indications 68-year-old female who was seen with this with an obvious left upper quadrant incisional hernia. This was from a previous hand-assisted laparoscopic procedure. The hernia is the initial hernia and is reducible. Will plan to do an open hernia repair with likely mesh. She understands all the risks. Description of Procedure The patient taken the OR and underwent excellent general anesthesia. Their abdomen was prepped and draped in normal sterile fashion. A transverse LUQ transverse incision was made over their previous incision and sharp dissection was taken down down to identify the anterior fascia. Bleeding was controlled with ties and cautery. The hernia sac was then from the dermis using cautery. A 5 cm defect was identified. Two stay sutures were placed on either side of the defect. Some of the preperitoneal fat was excised off the fascia posteriorly. A piece of 11 x 14 cm Ventralight elliptical dual was then obtained. This was placed into the defect. This lay flat inn the defect with good circumferential coverage. A series of 0 Ethibond sutures were then used to secure the mesh to the fascia. Once this was done and the mesh was in good position. 0.5% Marcaine with epinephrine local was used to create local field block. The deep SQ tissue was approximated with Vicryl sutures. The skin was closed with a Vicryl suture. Dermabond was used to reinforce the closure. Patient tolerated procedure without complications. They were then sent to postop recovery period of observation. He will then be discharged home with meets criteria. I attest to the content of the Intraoperative Record and any orders documented therein. Any exceptions are noted below.
[2024-01-22] MEDS: fentaNYL citrate PF 100 MCG/2 ML VIAL IV PRN (08:48)
[2024-01-22] MEDS ORDERED: MoRPHine SULFATE 4 MG/ML 1 ML CARP\\VIAL IV PRN (08:49)
[2024-01-22] MEDS: HYDROmorphone INJ 0.5 MG/0.5 ML SYR IV STA ×4 (08:53→09:14)
[2024-01-22] MEDS: PROMETHAZINE HCL INJ 25 MG/ML 1 ML VIAL ONE (08:58)
[2024-01-22] MEDS: HYDROmorphone INJ 0.5 MG/0.5 ML SYR ONE ×2 (08:58→09:07)
[2024-01-22] MEDS: PROMETHAZINE HCL 6.25 MG in SODIUM CHLORIDE 0.9% 50 ML IV PRN (08:58)
[2024-01-22] MEDS: SODIUM CHLORIDE 0.9% 50 ML BAG ONE (08:59)
[2024-01-22] MEDS: KETOROLAC 30 MG/ML VIAL IV ONE (09:43)
[2024-01-22] MEDS: ACETAMINOPHEN 1,000 MG/100 ML VIAL IV STA (09:44)
[2024-01-22] MEDS: KETOROLAC 30 MG/ML VIAL ONE (09:47)
[2024-01-22] MEDS: ACETAMINOPHEN 1000 MG/100 ML IV IV ONE (09:47)
[2024-01-22] MEDS: oxyCODONE/ACETAMINOPHEN 5mg/325mg TAB PO PRN ×2 (11:19→22:00)
--- NOTE | 2024-01-22 13:03 | XRay Report ---
XR chest 1V portable CLINICAL HISTORY: lo2 o2 saturation post op COMPARISON STUDY: Chest radiograph February 23, [address] February 19, 2023. FINDINGS: Old, healed right humeral neck fracture is incidentally noted. There is no pneumothorax or pleural effusion. Cardiomegaly is unchanged. A large hiatal hernia has increased in size. Mild left b asilar opacity favors atelectasis. There is no consolidation to suggest pneumonia. There is no radiog raphic evidence for pulmonary edema. IMPRESSION: 1. Cardiomegaly. No radiographic evidence for pulmonary edema. 2. No pneumothorax. 3. Left basilar opacity suggestive of atelectasis. 3. Large hiatal hernia. ACT 112: Negative or not required by law. Electronically signed by: Yonny Mccullough M.D. 01/22/2024 1:01 PM
--- NOTE | 2024-01-22 15:48 | Anesthesiology Progress Note ---
Date of Service January 22, 2024 Anesthesia Post Procedure Vital Signs Vital Signs: Temp Pulse Pulse Pulse Resp BP Pulse Ox 01/22/24 15:00 37.0 C 82 18 99/68 L 92 01/22/24 13:00 37.3 C 87 18 100/71 91 01/22/24 12:00 37.3 C 91 H 20 99/76 L 91 01/22/24 11:30 36.9 C 84 18 101/65 94 01/22/24 11:00 36.9 C 84 16 86/53 L 92 01/22/24 10:55 88 13 114/63 92 01/22/24 10:45 92 H 15 116/73 92 01/22/24 10:35 36.8 C 85 12 116/72 93 01/22/24 10:25 97 H 12 104/76 91 01/22/24 10:15 82 13 96/63 L 91 01/22/24 10:05 89 15 109/63 92 01/22/24 09:55 96 H 12 102/75 92 01/22/24 09:45 100 H 12 114/64 94 01/22/24 09:35 103 H 12 122/66 92 01/22/24 09:25 101 H 15 123/76 94 01/22/24 09:15 96 H 12 118/73 94 01/22/24 09:05 97 H 13 110/77 95 01/22/24 08:55 103 H 22 150/87 H 93 01/22/24 08:45 36.5 C 101 H 14 154/102 H 94 01/22/24 06:01 36.6 C 82 18 146/88 H 97 O2 Del Method O2 Flow Rate 01/22/24 15:00 Room Air 01/22/24 13:00 Nasal Cannula 2 01/22/24 12:00 Nasal Cannula 2 01/22/24 11:30 Nasal Cannula 2 01/22/24 11:00 Nasal Cannula 2 01/22/24 10:55 Nasal Cannula 2 01/22/24 10:45 Nasal Cannula 2 01/22/24 10:35 Nasal Cannula 2 01/22/24 10:25 Nasal Cannula 2 01/22/24 10:15 Nasal Cannula 3 01/22/24 10:05 Nasal Cannula 3 01/22/24 09:55 Nasal Cannula 3 01/22/24 09:45 Nasal Cannula 5 01/22/24 09:35 Nasal Cannula 5 01/22/24 09:25 Oxymask 9 01/22/24 09:15 Oxymask 9 01/22/24 09:05 Oxymask 9 01/22/24 08:55 Oxymask 9 01/22/24 08:45 Oxymask 9 01/22/24 06:01 Room Air Pain Intensity Left Abdomen: Pain Intensity: 5 Transfer of Care Handoff Completed per policy Notes Mental Status: alert / awake / arousable and participated in evaluation Patient Amnestic to Procedure: Yes Nausea / Vomiting: adequately controlled Pain: adequately controlled Airway Patency, RR, SpO2: see Notes below BP & HR: stable & adequate Hydration State: stable & adequate Anesthetic Complications: no major complications apparent and Pt Satisfied with anesthetic care Notes: Patient was unable to be successfully weaned off of supplemental oxygen after prolonged recovery. She denied any SOB/cough/chest pain/pressure. Patient was using ISB appropriately. Lungs were clear. CXR showed mild left sided atelectasis. Patient agreeable to stay for overnight observation with SpO2 monitoring and possible supplemental oxygen. All questions answered.
[2024-01-22] MEDS: SCOPOLAMINE 1 MG/72 HR TDSY PATCH TD STA (16:08)
[2024-01-22] MEDS: CHECK SCOPOLAMINE PATCH PLACEMENT SCH (17:12)
[2024-01-22] MEDS: MoRPHine SULFATE 2 MG/ML CARP IV PRN (18:15)
[2024-01-22] MEDS: ROSUVASTATIN CALCIUM 10 MG TAB PO SCH (20:32)
[2024-01-22] MEDS: PANTOprazole 40 MG TAB PO SCH (20:32)
[2024-01-22] MEDS: FLUTICASONE/VILANTEROL 200/25MCG 14 PUFFS/INHALER INH SCH (20:33)
[2024-01-23] MEDS: CALCIUM CARBONATE 500 MG CHEWABLE TAB PO PRN (04:53)
[2024-01-23] MEDS: lisinopril 20 MG TAB PO SCH (07:58)
[2024-01-23] MEDS: VENLAFAXINE HCL XR 37.5 MG CAPXR PO SCH (07:58)
[2024-01-23] MEDS: amLODIPine BESYLATE 5 MG TAB PO SCH (07:58)
[2024-01-23] MEDS: VENLAFAXINE HCL XR 75 MG CAPXR PO SCH (07:58)
--- NOTE | 2024-01-23 09:57 | Discharge Summary ---
Date of Service January 23, 2024 Admission HPI Per Admitting Provider 68YO with symptomatic ventral hernia. Principal Diagnosis ventral hernia Discharge Exam Constitutional WD/WN, vitals as above Neck trachea midline, no thyromegaly Respiratory normal respiratory effort, lungs clear to auscultation Cardiovascular RRR, no murmur, no edema Gastrointestinal (Abdomen) normal bowel sounds, soft, nontender, no hepatosplenomegaly (LUQ ventral hernia, 5 cm) Musculoskeletal no cyanosis or clubbing, extremities motor strength 5/5 Psychiatric A+Ox3, euthymic affect Discharge Data Allergies Allergy/AdvReac Type Severity Reaction Status Date / Time codeine Allergy Mild "itchy" Verified 01/22/24 05:58 Procedures Performed Operation Date: 01/22/24 07:15 Actual Procedures p Open Repair Ventral Hernia Repair with Mesh(Not Applicable) - Arun Hernandez MD Hospital Course (1) Ventral hernia: 68YO with open ventral hernia repair with mesh. Post-op respiratory issues requiring supplemental O2 and pain control. She did well with pain control and o2 weaned. Discharge to home POD #1. Total Time Total Time Spent Total Time Spent (In Minutes): 15 Discharge Plan Discharge Items Patient Disposition: Home - Self-Care Reason For Visit: VENTRAL HERNIA Discharge Diagnosis: Incisional hernia Activity: Per Instructions section Activity Comment: No strenuous activity Lifting: No more than 25 pounds Bathing: No limitations Bathing Comment: remove dressing today; shower OK Sexual Activity: When tolerated Exercise/Sports: Wait until after follow-up appointment Driving/Machine Use: Resume 3 days after discharge Weightbearing: Full weightbearing Non-emergency contact: Surgeon Call non-emergency contact if: your pain is concerning for you, your temperature is above 101.5 and your wound pain has increased Follow-up/Referrals: Arun Hernandez MD [Physician] - Errol Baldwin MD [Primary Care Provider] - Diet: Regular Addtl Attending Provider Instructions: Appointment with Dr[facility] 2 weeks Pending Studies at Discharge: No Stand-Alone Forms: Anesthesia/Sedation, Adult, [facility] Medications and DC Order Prescriptions: New oxycodone-acetaminophen [Percocet] 5-325 mg tablet 1 tab PO Q6H PRN (Reason: pain) Qty: 14 0RF Continued venlafaxine [Effexor XR] 75 mg capsule,extended release 24hr 75 mg PO QAM amlodipine 10 mg tablet 10 mg PO QAM venlafaxine [Effexor XR] 37.5 mg Capsule,Extended Release 24hr 37.5 mg PO QAM omeprazole 40 mg Capsule,Delayed Release(Dr/Ec) 40 mg PO BID rosuvastatin [Crestor] 10 mg Tablet 10 mg PO HS fluticasone propion-salmeterol [Advair Diskus] 250-50 mcg/dose Blister With Device 1 inh INHALATION BID Patient Comments: "only takes once a day" lisinopril 20 mg Tablet 20 mg PO QAM ibuprofen 600 mg Tablet 600 mg PO QID PRN (Reason: Pain) Discharge Orders: Discharge Order (Routine); Ordered 01/23/24 Ordered By: Arun Lara/Other Patient Handouts: DVT Post Op Prevention Admission Data Admit Date/Time: 01/22/24 13:54 Attending Provider: Arun Hernandez Admit Provider: Arun Hernandez Primary Care Provider: Errol Baldwin
[2024-01-23] MEDS: IBUPROFEN 600 MG TAB PO PRN (11:23)
== END 2024-01-23 12:04 | disposition home or self-care (01) ==
LOC: 2W 05:38 → ASU 05:38 → 2N 23:51